=== PATIENT | female | born 1945 | race Caucasian/White ===

== ENCOUNTER → 2016-03-06 | Outpatient (CLI) | payer MEDICARE, OTHER ==
[~2016-03-06] MED LIST: CALC-80 PO; GFN600TCR PO; LVT.112T PO; LVT.1T PO; MULT-608 PO; VITIMIN C
--- NOTE | 2016-03-07 15:40 | Diagnostic Imaging Report ---
Bilateral screening mammogram. The current study was also evaluated with a Computer Aided Detection (CAD) system. INDICATION: Screening. No current complaints stated on the questionnaire. COMPARISON: 03/19/15. FINDINGS: The breasts are composed of heterogeneously dense parenchyma which may decrease mammographic sensitivity. There is no developing mass, architectural distortion or suspicious cluster of calcification. Stable benign-appearing calcification seen. Allowing for technique and positional differences, no suspicious change is seen. IMPRESSION: Dense breasts with no definite change. ACR BI-RADS Category 2: Benign findings. Result letter will be mailed to the patient. Note: At least 10% of breast cancer is not imaged by mammography. Dictated by: Dictated on workstation # [id number]
== END ==
LOC: RAD 14:44
PROVIDERS: ATTEND Internal Medicine
DX: Z12.31 Encounter for screening mammogram for malignant neoplasm of breast (principal)

== ENCOUNTER → 2017-03-05 | Outpatient (CLI) | payer MEDICARE, OTHER ==
--- NOTE | 2017-03-05 14:04 | Diagnostic Imaging Report ---
INDICATION: Screening. COMPARISON: 03/06/2016 back through 03/11/2013. TECHNIQUE: Screening digital mammography was performed bilaterally with a Computer Aided Detection (CAD) system. FINDINGS: There is a moderate amount of residual fibroglandular tissue bilaterally. There are scattered benign type calcifications. There are a few tiny nodular densities in the lateral aspect of the left breast which are unchanged. There is no new dominant mass lesion or suspicious calcification identified. The skin, nipples, and axillae are unremarkable. IMPRESSION: Benign findings. ACR BI-RADS Category 2: Benign findings. Result letter will be mailed to the patient. Note: At least 10% of breast cancer is not imaged by mammography. Dictated by: Dictated on workstation # [id number]
== END ==
LOC: RAD 10:08
PROVIDERS: ATTEND Internal Medicine
DX: Z12.31 Encounter for screening mammogram for malignant neoplasm of breast (principal)
CPT/HCPCS: 77067

== ENCOUNTER → 2017-04-24 | Outpatient (CLI) | payer MEDICARE, OTHER ==
--- NOTE | 2017-04-24 17:30 | Diagnostic Imaging Report ---
INDICATION: Back pain radiating to both legs. TIME OF EXAM: 04:03 p.m. FINDINGS: Three views of the lumbar spine were obtained. Alignment is normal. Curvature is within normal limits. Vertebral body heights are maintained. No acute compression fracture is seen. There appears to be mild degenerative disc disease at the L2-L3, L3-L4, and L4-L5 levels with mild disc space narrowing and marginal spurring. IMPRESSION: Lumbar spondylosis. No acute bony abnormality is detected. Dictated by: Dictated on workstation # [id number]
--- NOTE | 2017-04-24 18:05 | Diagnostic Imaging Report ---
INDICATION: Back pain and bilateral hip pain. TIME OF EXAM: 04:04 p.m. FINDINGS: A single AP view of the pelvis demonstrates normal femoroacetabular alignment bilaterally. Both femoral heads and necks are intact. Rami are intact. No fractures are seen. SI joints and symphyses are non-widened. IMPRESSION: No acute bony abnormality is detected. Dictated by: Dictated on workstation # [id number]
== END ==
LOC: RAD 15:31
PROVIDERS: ATTEND Internal Medicine
DX: M47.816 Spondylosis without myelopathy or radiculopathy, lumbar region (principal)
CPT/HCPCS: 72100; 72170

== ENCOUNTER 2017-12-21 05:35 | Outpatient (CLI) | payer MEDICARE, OTHER ==
[~2017-12-21] VITALS: Ht 157.5 cm; Wt 64.4 kg
[2017-12-21] MEDS ORDERED: LEVO112T55 PO (08:59)
== END 2017-12-21 09:00 | disposition home or self-care (01) ==
LOC: PREOP 05:35
PROVIDERS: ATTEND Specialist
DX: Z01.818 Encounter for other preprocedural examination (principal)

== ENCOUNTER 2017-12-25 05:57 | Day surgery (SDC) | payer MEDICARE, OTHER ==
[~2017-12-25] VITALS: Ht 157.5 cm; Wt 64.4 kg
[~2017-12-25 05:57] MED LIST changes: +LEVO112T55 PO
[2017-12-25] MEDS ORDERED: acetaZOLAMIDE ER 500 MG CAP (DIAMOX SEQUELS) PO ONE (06:00)
[2017-12-25 06:13] VITALS: BP 132/73
[2017-12-25] MEDS: TETRACAINE 0.5% OPHTH SOLN 4 ML BTL (SINGLE DOSE ONLY) OU PRN ×4 (06:22→06:41)
[2017-12-25] MEDS ORDERED: POVIDONE (BETADINE) OPHTH SOLN 5% 30 ML OP ONE (06:30)
[2017-12-25] MEDS ORDERED: EPINEPHrine INJECTION 1 MG/ML AMP INJ ONE (06:30)
[2017-12-25] MEDS ORDERED: TIMOLOL MALEATE 0.5% 5 ML (TIMOPTIC) BTL OU PRN (06:30)
[2017-12-25] MEDS ORDERED: BSS 15 ML IR PRN (06:30)
[2017-12-25] MEDS ORDERED: LIDOCAINE PF 1% 2 ML AMP IR PRN (06:30)
[2017-12-25] MEDS ORDERED: MOXIFLOXACIN OPHTH SOLN 5 MG/ML 0.3 ML SYRINGE OP ONE (06:30)
[2017-12-25] MEDS: CYCLOPENTOLATE 1% (CYCLOGYL) 2 ML DROPS OP SCH ×3 (06:31→06:41)
[2017-12-25] MEDS: PHENYLEPHRINE 10% OPHTH (NEO-SYN) 5 ML BTL OU SCH ×3 (06:31→06:41)
[2017-12-25] MEDS ORDERED: MIDAZOLAM 2 MG/2 ML (VERSED) VIAL ONE (06:46)
--- NOTE | 2017-12-25 07:24 | Ophthalmologist Pre-Op Note ---
Pre-Operative Progress Note H&P Reviewed The H&P was reviewed, patient examined and no changes noted. Date H&P Reviewed: Dec 25, 2017 Time H&P Reviewed: 07:01 Pre-Op Dx Cataract, Right Eye DAVID VELASQUEZ MD Dec 25, 2017 07:24
--- NOTE | 2017-12-25 07:25 | Ophthalmology Operative Report ---
Cataract removal/placement IOL PREOPERATIVE DIAGNOSIS: Cataract Right Eye POSTOPERATIVE DIAGNOSIS: Cataract Right Eye PROCEDURE: Cataract removal and placement of posterior chamber implant, right eye SURGEON: Kurt Velasquez ANESTHESIA: Topical with sedation COMPLICATIONS: None ESTIMATED BLOOD LOSS: Minimal DESCRIPTION OF PROCEDURE: After proper informed consent was obtained, the patient, a [id number] female, was taken to the Operating Room and the right eye was anesthetized with tetracaine. The right eye was then prepped and draped in the usual manner. A wire lid speculum was placed. A paracentesis was made at the left hand position. Preservative free lidocaine was injected into the anterior chamber followed by viscoelastic. A clear corneal incision was made in the temporal position. A capsulorrhexis was preformed and the central nuclear and cortical material were removed. The posterior capsule was polished and Michael 23.0 AU00T0 IOL was placed into the capsular bag. The residual viscoelastic was aspirated and balanced saline solution was injected into the anterior chamber. Moxifloxacin was injected into the anterior chamber. The wound was checked and found to be water tight. The patient tolerated the procedure well without complications. KURT VELASQUEZ MD Dec 25, 2017 07:25
[2017-12-25 07:26] VITALS: BP 138/78
== END 2017-12-25 07:32 | disposition home or self-care (01) ==
LOC: SDC 05:57
PROVIDERS: ATTEND Specialist
DX: H25.11 Age-related nuclear cataract, right eye (principal); F41.9 Anxiety disorder, unspecified; F40.240 Claustrophobia; E03.9 Hypothyroidism, unspecified; Z79.899 Other long term (current) drug therapy

== ENCOUNTER 2018-05-21 06:23 | Outpatient (CLI) | payer MEDICARE, OTHER ==
[~2018-05-21] VITALS: Ht 157.5 cm; Wt 64.4 kg
== END 2018-05-21 09:56 | disposition home or self-care (01) ==
LOC: PREOP 06:23
PROVIDERS: ATTEND Specialist
DX: Z01.818 Encounter for other preprocedural examination (principal)

== ENCOUNTER 2018-05-22 10:22 | Day surgery (SDC) | payer MEDICARE, OTHER ==
[~2018-05-22] VITALS: Ht 157.5 cm; Wt 64.4 kg
--- OUTSIDE RECORDS SUMMARY | 2018-05-22 10:26 | XMS REPORT | Clinical Summary ---
Author Author User, [email or web address] Organization [facility] [place] Address Unknown Phone Unavailable Allergies, Adverse Reactions, Alerts Allergy Name Reaction Description Start Date Severity Status Provider CODEINE Dermatological problems, e.g., rash, hives Critical Active Bernadette Davila BIAXIN XL PAC Insomnia and rash Critical No Longer Active Bernadette Davila Conditions or Problems Problem Name Problem Code Onset Date Status Entry Date Provider Comment Standard Description Annotate UPPER RESPIRATORY INFECTION (URI) 465.9 Resolved Bernadette Davila Acute upper respiratory infections of unspecified site History of CHOLECYSTECTOMY, HX OF V45.79 2000 Correction Bernadette Davila Other acquired absence of organ History of HYSTERECTOMY, PARTIAL, HX OF V45.77 1977 Correction Bernadette Davila Acquired absence of genital organs History of OOPHORECTOMY, HX OF V45.77 1987 Correction Bernadette Davila Acquired absence of genital organs History of ENDOMETRIOSIS 617.9 1970 Correction Bernadette Davila Endometriosis, site unspecified History of BLADDER SUSPENSION, HX OF V45.89 1997 Correction Bernadette Davila Other postsurgical status Family History of ADENOCARCINOMA, COLON Resolved Bernadette Davila Malignant neoplasm of colon, unspecified History of THYROID DISORDER 246.9 Correction Bernadette Davila Unspecified disorder of thyroid INCONTINENCE 788.30 1989 Resolved Bernadette Davila Urinary incontinence, unspecified Hospitalized for BACTERIAL PNEUMONIA, RIGHT LOWER LOBE 482.9 Correction Bernadette Davila Bacterial pneumonia, unspecified COUGH 786.2 Resolved Bernadette Davila Cough FATIGUE 780.79 Resolved Bernadette Davila Other malaise and fatigue PLEURISY 511.0 Resolved Bernadette Davila Pleurisy without mention of effusion or current tuberculosis HYPOTHYROIDISM 244.9 Resolved Bernadette Davila Unspecified hypothyroidism Dx by old records from Dr Duke. Will address next visit about Synthroid DIVERTICULOSIS, COLON 562.10 Resolved Bernadette Davila Diverticulosis of colon (without mention of hemorrhage) Dx by old records, will assess next visit. GASTROESOPHAGEAL REFLUX DISEASE, CHRONIC 530.81 Resolved Bernadette Davila Esophageal reflux per old chart NEVUS, ATYPICAL 216.9 Resolved Bernadette Davila Benign neoplasm of skin, site unspecified BRONCHITIS 490 Resolved Bernadette Davila Bronchitis, not specified as acute or chronic COUGH 786.2 Resolved Bernadette Davila Cough ALLERGIC RHINITIS, SEASONAL 477.9 Resolved Bernadette Davila Allergic rhinitis, cause unspecified UTI 599.0 Resolved Bernadette Davila Urinary tract infection, site not specified WART, VIRAL 078.19 Resolved Bernadette Davila Other specified viral warts right index finger NEVUS FLAMMEUS 757.32 Resolved Bernadette Davila Vascular hamartomas right neck MUSCLE PAIN 729.1 Resolved Bernadette Davila Myalgia and myositis, unspecified POLYARTHRALGIA 719.49 Resolved Bernadette Davila Pain in joint involving multiple sites OSTEOARTHRITIS, SACROILIAC JOINT 715.98 Resolved Bernadette Davila Osteoarthrosis, unspecified whether generalized or localized, involving other specified sites MUSCLE SPASM, BACK 724.8 Resolved Bernadette Davila Other symptoms referable to back HAY FEVER 995.3 Resolved Bernadette Davila Allergy, unspecified, not elsewhere classified BRONCHITIS 490 Resolved Bernadette Davila Bronchitis, not specified as acute or chronic COUGH 786.2 Resolved Bernadette Rissa Davila Cough URTICARIA, ACUTE 708.9 Resolved Bernadette Davila Unspecified urticaria WHEEZING 786.07 Resolved Bernadette Davila Wheezing COUGH 786.2 Resolved Bernadette Davila Cough THRUSH 112.0 Resolved Bernadette Davila Candidiasis of mouth MUSCLE PAIN 729.1 Resolved Bernadette Davila Myalgia and myositis, unspecified COUGH 786.2 Resolved Bernadette Rissa Davila Cough PNEUMONIA 486 Resolved Bernadette Davila Pneumonia, organism unspecified ASTHMA, CHRN OBST W/(ACUTE) EXACERBATION 493.22 Resolved Bernadette Davila Chronic obstructive asthma, with (acute) exacerbation HAY FEVER 477.0 Resolved Bernadette Davila Allergic rhinitis due to pollen BRONCHITIS 490 Resolved Bernadette Davila Bronchitis, not specified as acute or chronic ADULT SITUATIONAL REACTION 309.9 Resolved Bernadette Davila Unspecified adjustment reaction DIZZINESS 780.4 Resolved Bernadette Davila Dizziness and giddiness HYPERGLYCEMIA, MILD 790.6 Resolved Bernadette Davila Other abnormal blood chemistry SEBORRHEIC KERATOSIS 702.19 Resolved Bernadette Davila Other seborrheic keratosis OSTEOPENIA 733.90 Resolved Bernadette Davila Disorder of bone and cartilage, unspecified VITAMIN D DEFICIENCY 268.9 Active Bernadette Davila Unspecified vitamin D deficiency CHEST PAIN, ATYPICAL 786.59 Resolved Bernadette Davila Other chest pain HYPOTHYROIDISM, PRIMARY 244.9 Active Bernadette Davila Unspecified hypothyroidism HIP PAIN 719.45 Resolved Bernadette Davila Pain in joint involving pelvic region and thigh FEVER PRESENTING CONDITIONS CLASSIFIED ELSEWHERE 780.61 Resolved Bernadette Davila Fever presenting with conditions classified elsewhere DIARRHEA, ACUTE 787.91 Resolved Bernadette Davila Diarrhea HAY FEVER 477.0 Active Bernadette Davila Allergic rhinitis due to pollen ABNORMAL MAMMOGRAM 793.80 Resolved Bernadette Davila Abnormal mammogram, unspecified OVERACTIVE BLADDER 596.51 Active Bernadette Davila Hypertonicity of bladder BRONCHITIS 490 Resolved Bernadette Davila Bronchitis, not specified as acute or chronic WHEEZING 786.07 Resolved Bernadette Davila Wheezing HIP PAIN 719.45 Resolved Bernadette Davila Pain in joint involving pelvic region and thigh COUGH 786.2 Resolved Bernadette Davila Cough DEPRESSION 311 Active Bernadette Davila Depressive disorder, not elsewhere classified CANDIDIASIS, VAGINAL 112.1 Active Bernadette Davila Candidiasis of vulva and vagina VAGINITIS, ATROPHIC 627.3 Active Bernadette Davila Postmenopausal atrophic vaginitis Medication List Medication Instructions Start Date Stop Date Generic Name NDC Status Provider Patient Instruction NYSTATIN 592265 UNIT/GM POWD apply over the Nystatin cream BID NYSTATIN [id number] No Longer Active Bernadette Rissa Davila NYSTATIN 167105 UNIT/GM CREA apply to affected areas BID for 7 days NYSTATIN 98338640603 No Longer Active Bernadette Rissa Dvaila PREMARIN 0.625 MG/GM CREA Apply small amount to affected area daily. ESTROGENS, CONJUGATED VAGINAL 71057463659 Active Bernadette Rissa Davila VESICARE 5 MG TABS 1 PO daily SOLIFENACIN SUCCINATE 44943535950 No Longer Active Bernadette Rissa Davila SYMBICORT 160-4.5 MCG/ACT AERO 2 PUFFS BID BUDESONIDE -FORMOTEROL FUMARATE 17433908636 No Longer Active Bernadettegayatri Davila AEROCHAMBER MINI CHAMBER CHINMAY DIRECTED SPACER/AERO -HOLDING CHAMBERS 54090875233 No Longer Active Bernadettegayatri Davila TRIAMCINOLONE ACETONIDE 0.1 % CREA apply BID prn TRIAMCINOLONE ACETONIDE (TOP) 78849601500 No Longer Active Bernadettegayatri Davila MOBIC 15 MG TABS 1 PO daily MELOXICAM 67525720500 No Longer Active Bernadettegayatri Davila SYNTHROID 0.125 MG TAB 1 PO daily LEVOTHYROXINE SODIUM 74656673196 Active Bernadettegayatri Davila ZOSTAVAX 75382 UNT/0.65ML SOLR 1 injection once to prevent Shingles ZOSTER VACCINE LIVE 37284457084 No Longer Active Bernadettegayatri Davila PREDNISONE 20 MG TAB 1 PO daily for 4 days then 1/2 PO daily for 4 days 09/30 PREDNISONE 63919510759 No Longer Active Bernadette Rissa Davila LEVAQUIN 750 MG TABS 1 PO daily LEVOFLOXACIN 25649783614 No Longer Active Bernadette Rissa Davila ZOSTAVAX 29252 UNT/0.65ML SOLR 1 injection once to prevent Shingles ZOSTER VACCINE LIVE 91060877305 No Longer Active Bernadette Rissa Davila ZOSTAVAX 20313 UNT/0.65ML SOLR 1 injection once to prevent Shingles ZOSTER VACCINE LIVE 61114275289 No Longer Active Bernadette Rissa Davila NAPROXEN 500 MG TAB 1 PO BID NAPROXEN 84769198599 No Longer Active Bernadette Rissa Davila FLEXERIL 10 MG TAB 1 PO TID prn CYCLOBENZAPRINE HCL 88002884471 No Longer Active Bernadette Rissa Davila ENABLEX 15 MG NE64A-BMS 1 PO daily DARIFENACIN HYDROBROMIDE 10680438334 No Longer Active Bernadette Rissa Davila FLEXERIL 10 MG TAB 1 PO TID prn CYCLOBENZAPRINE HCL 98390859998 No Longer Active Bernadette Rissa Davila IBUPROFEN 200 MG TAB 2 PO BID IBUPROFEN 58488555241 No Longer Active Bernadette Rissa Davila JARETH ALLERGY 180 MG TABS 1 po BID FEXOFENADINE HCL 35261428999 No Longer Active Bernadette Rissa Davila SYNTHROID 0.1 MG TAB 1 PO on Sunday and Sunday LEVOTHYROXINE SODIUM 47512253369 No Longer Active Bernadette Rissa Davila IMODIUM A-D 2 MG TABS as directed LOPERAMIDE HCL 63297781359 No Longer Active Bernadette Rissa Davila TRANSDERM-SCOP 1.5 MG PT72 1 patch behind ear and change every 3 days SCOPOLAMINE BASE 58996239045 No Longer Active Bernadette Rissa Davila ZOSTAVAX 18382 UNT/0.65ML SOLR 1 injection once to prevent Shingles ZOSTER VACCINE LIVE 46311283390 No Longer Active Bernadette Rissa Davila PREDNISONE 20 MG TAB 2 pills at once for 2 days then 1 pill daily for 2 days PREDNISONE 93175410581 No Longer Active Bernadette Rissa Davila TUSSIONEX PENNKINETIC ER 8-10 MG/5ML LQCR 1 tsp PO TID prn cough CHLORPHENIRAMINE-HYDROCODONE 04191160061 No Longer Active Bernadette Rissa Davila ADVAIR DISKUS 100-50 MCG/DOSE MISC 1 puff BID FLUTICASONE-SALMETEROL 91891362030 No Longer Active Bernadette Rissa Davila LEVAQUIN 750 MG TABS 1 po daily for 7 days. LEVOFLOXACIN 68302581753 No Longer Active Bernadette Rissa Davila ZAMICET 10-325 MG/15ML SOLN 1 teaspoon PO Q4hrs prn HYDROCODONE-ACETAMINOPHEN 22226215615 No Longer Active Bernadetet Rissa Davila ZOLOFT 100 MG TABS 1 PO nightly at bedtime SERTRALINE HCL 44688542092 No Longer Active Bernadette Rissa Davila TESSALON 200 MG CAPS 1 PO TID prn cough BENZONATATE 35301872964 No Longer Active Bernadette Rissa Davila LEVAQUIN 500 MG TAB 1 PO QD LEVOFLOXACIN 16201737482 No Longer Active Bernadette Rissa Davila LOTRISONE 0.05-1 % CREAM apply to affectede areas TID for 7 days CLOTRIMAZOLE-BETAMETHASONE 33940779049 No Longer Active Bernadette Rissa Davila XANAX 0.25 MG TABS 1 PO Q6hrs prn ALPRAZOLAM 51684805434 No Longer Active Bernadette Rissa Davila ZOLOFT 50 MG TAB 1 PO daily SERTRALINE HCL 07042038736 No Longer Active Bernadette Rissa Davila CALTRATE 600 PLUS-VIT D 600-200 MG-IU TABS 1 PO BID CALCIUM- VITAMIN D 62659012630 Active Bernadette Rissa Davila VITAMIN D 400 UNIT CAPS 2 PO daily CHOLECALCIFEROL 92894818141 Active Bernadette Rissa Davila TESSALON 200 MG CAPS 1 PO TID prn cough BENZONATATE 97660414836 No Longer Active Bernadette Rissa Davila LEVAQUIN 500 MG TAB 1 PO QD for 7 days LEVOFLOXACIN 98910244896 No Longer Active Bernadette Rissa Davila ROBITUSSIN A-C 10-100 MG/5ML SYRUP 5cc PO Q 4-6 hr prn ROBITUSSIN A-C 10-100 MG/5ML SYRUP 34533096471 No Longer Active Bernadette Rissa Davila TESSALON 200 MG CAPS 1 PO TID prn for cough BENZONATATE 83815131488 No Longer Active Bernadette Rissa Davila CODICLEAR DH 5-100 MG/5ML SYRP 5 cc Po Q4-6prn HYDROCODONE-GUAIFENESIN 48656626482 No Longer Active Bernadette Rissa Davila MUCINEX 600 MG TB12 1 PO BID for 5 days GUAIFENESIN 07923421692 No Longer Active Bernadette Rissa Davila LEVAQUIN 500 MG TAB 1 PO daily for 7 days LEVOFLOXACIN 19596474981 No Longer Active Bernadette Rissa Davila PREDNISONE 20 MG TAB 2 PO daily for 2 days and then 1 PO daily for 2 days PREDNISONE 40564170704 No Longer Active Bernadette Rissa STEPHENS'S NASAL SPRAY (DEXAMETHASONE, GENTAMICIN, SALINE) 2 puffs each nostril TID for [address] STEPHENS'S NASAL SPRAY ( DEXAMETHASONE, GENTAMICIN, SALINE) No Longer Active Bernadettegayatri Davila AUGMENTIN 875-125 MG TAB 1 PO BID for 7 days AMOXICILLIN-POT CLAVULANATE 97725563345 No Longer Active Bernadettegayatri Davila DIFLUCAN 100 MG TAB 1 PO daily FLUCONAZOLE 92528939332 No Longer Active Bernadette Rissa Davila DILANTIN 100 MG CAP 1 PO daily for 5 days PHENYTOIN SODIUM EXTENDED 12701888253 No Longer Active Bernadettegayatri Davila NYSTATIN 289269 UNIT/ML SUSP 5cc PO QID for 7 days NYSTATIN 99053751879 No Longer Active Bernadettegayatri Davila SYNTHROID 100 MCG TABS 1 po daily alternating with 112 mcg. 03/28 LEVOTHYROXINE SODIUM 40826030822 No Longer Active Bernadettegayatri Davila PREDNISONE 20 MG TAB 3 PO QD for 3 days and 2 PO QD for 4 days PREDNISONE 93045332184 No Longer Active Bernadettegayatri Davila LEVAQUIN 500 MG TAB 1 PO QD LEVOFLOXACIN 32631344813 No Longer Active Bernadette Davila ADVAIR DISKUS 100-50 MCG/DOSE MISC 1 puff BID FLUTICASONE-SALMETEROL 69554907854 No Longer Active Bernadette Davila ROBITUSSIN A-C 10-100 MG/5ML SYRUP 5cc PO Q 4-6 hr prn ROBITUSSIN A-C 10-100 MG/5ML SYRUP 07708859213 No Longer Active Daryl Chu DEXAMETHASONE 2 MG TABS 1 PO BID DEXAMETHASONE 79572732933 No Longer Active Bernadette Davila TOPICORT 0.25 % CREA apply to affected areas BID DESOXIMETASONE 80962519186 No Longer Active Bernadette Rissa Davila ATARAX 25 MG TAB 1 PO Q6hrs, will cause drowsiness HYDROXYZINE HCL 50785243387 No Longer Active Bernadette Rissa Davila JARETH 180 MG TABS 1 PO BID FEXOFENADINE HCL 17791630846 No Longer Active Bernadette Rissa Davila SALICYLIC ACID BULL Apply QD and cover with bandaid SALICYLIC ACID 31250771577 No Longer Active Bernadette Rissa Davila DESOXIMETASONE 0.05 % GEL Apply bid prn DESOXIMETASONE 42418200462 No Longer Active Bernadette Rissa Davila METHYLPREDNISOLONE ACETATE 80 MG/ML SUSP 1 1/2 cc IM x 1 METHYLPREDNISOLONE ACETATE 61694837852 No Longer Active Bernadette Rissa Davila BENADRYL 25 MG TABS 2 PO QHS for 4 days DIPHENHYDRAMINE HCL 28488071631 No Longer Active Bernadette Rissa Davila PREDNISONE 20 MG TABS 2 PO QD for 4 days PREDNISONE 24484507353 No Longer Active Bernadette Rissa Davila BIAXIN XL PAC 500 MG TB24 2 PO QD for 7 days CLARITHROMYCIN 91635510411 No Longer Active Bernadette Rissa Davila ROBITUSSIN A-C 10-100 MG/5ML SYRUP 5cc PO Q 4-6 hr prn ROBITUSSIN A-C 10-100 MG/5ML SYRUP 34171063496 No Longer Active Bernadette Rissa Davila METHYLPREDNISOLONE ACETATE 80 MG/ML SUSP injected 1cc left gluteus w/o diff METHYLPREDNISOLONE ACETATE 26318057736 No Longer Active Bernadette Rissa Davila PREDNISONE 20 MG TAB 2 PO QD for 3 days PREDNISONE 76516827900 No Longer Active Bernadette Rissa Davila NAPROXEN 500 MG TAB 1 PO BID first dose now NAPROXEN 53560178141 No Longer Active Bernadette Rissa Davila FLEXERIL 10 MG TAB 1 PO QHS prn back pain CYCLOBENZAPRINE HCL 61907469245 No Longer Active Bernadette Rissa Davila PNEUMOVAX 23 25 MCG/0.5ML INJ Received at Hospital Discharge 01/2003 PNEUMOCOCCAL VAC POLYVALENT 86597104058 No Longer Active Bernadette Rissa Davila PYRIDIUM 200 MG TAB 1 TID for 2 days PHENAZOPYRIDINE HCL 07615004841 No Longer Active Bernadette Rissa Davila CIPRO XR 500 MG TB24 1 daily CIPROFLOX HCL-CIPRO BETAINE 48754582041 No Longer Active Bernadette Rissa Davila ZITHROMAX Z-WALE 250 MG TABS as directed AZITHROMYCIN 81301617562 No Longer Active Bernadette Rissa Davila ROBITUSSIN A-C 10-100 MG/5ML SYRUP 5cc PO Q 4-6 hr prn ROBITUSSIN A-C 10-100 MG/5ML SYRUP 45513473532 No Longer Active Bernadette Rissa Davila CODICLEAR DH 5-100 MG/5ML SYRP 5 cc q 4-6 hrs. prn cough HYDROCODONE-GUAIFENESIN 77642943488 No Longer Active Bernadette Rissa Davila CELEBREX 200 MG CAPS 1 po qd prn CELECOXIB 03441661635 No Longer Active Bernadette Rissa Davila ACIPHEX 20 MG TBEC per old chart RABEPRAZOLE SODIUM 09056157092 No Longer Active Bernadette Rissa Davila DITROPAN XL 5 MG TBCR per old chart OXYBUTYNIN CHLORIDE 56790029841 No Longer Active Bernadette Rissa Davila ZOLOFT 100 MG TAB per old chart SERTRALINE HCL 32825724695 No Longer Active Bernadette Davila PREMARIN 0.625 MG TAB per old chart ESTROGENS CONJUGATED 29264437976 No Longer Active Bernadette Rissa Davila SYNTHROID 0.175 MG TAB Per old records LEVOTHYROXINE SODIUM 38181359138 No Longer Active Bernadettegayatri Davila ZITHROMAX 500 MG TABS 1 pO Wednesday 02/07 then dc AZITHROMYCIN 01636829127 No Longer Active Bernadettegayatri Davila ROBITUSSIN A-C 10-100 MG/5ML SYRUP 5cc po q4 prn ROBITUSSIN A-C 10-100 MG/5ML SYRUP 68781652578 No Longer Active Bernadette Davila LEVAQUIN 500 MG TAB 1 PO QD LEVOFLOXACIN 79179782209 No Longer Active Bernadettegayatri Davila ZYRTEC-D 5-120 MG TB12 1 PO BID prn CETIRIZINE- PSEUDOEPHEDRINE 09353581433 No Longer Active Bernadette Davila Immunizations Vaccine Administration Date Value Standard Description pneumococcal immunization administered Done pneumococcal polysaccharide vaccine, 23 valent pneumococcal immunization administered 01/28 [facility] pneumococcal polysaccharide vaccine, 23 valent Vital Signs Date Name Value Unit Range Description blood pressure, diastolic - 8462-4 70 mm[Hg] BP [place] blood pressure, systolic - 8480-6 128 mm[Hg] BP sys pulse rate E&M - 8867-4 66 /min Heart rate respiratory rate E&M - 9279-1 14 /min Resp rate temperature E&M 98.6 [degF] Body temperature weight E&M - 3141-9 153 [lb_av] Weight Measured blood pressure, diastolic - 8462-4 60 mm[Hg] BP [place] blood pressure, systolic - 8480-6 130 mm[Hg] BP sys pulse rate E&M - 8867-4 66 /min Heart rate respiratory rate E&M - 9279-1 14 /min Resp rate weight E&M - 3141-9 150 [lb_av] Weight Measured blood pressure, diastolic - 8462-4 70 mm[Hg] BP [place] blood pressure, systolic - 8480-6 118 mm[Hg] BP sys pulse rate E&M - 8867-4 66 /min Heart rate respiratory rate E&M - 9279-1 14 /min Resp rate temperature E&M 98.1 [degF] Body temperature weight E&M - 3141-9 153 [lb_av] Weight Measured blood pressure, diastolic - 8462-4 90 mm[Hg] BP [place] blood pressure, systolic - 8480-6 126 mm[Hg] BP sys pulse rate E&M - 8867-4 68 /min Heart rate respiratory rate E&M - 9279-1 14 /min Resp rate temperature E&M 97.8 [degF] Body temperature weight E&M - 3141-9 155 [lb_av] Weight Measured blood pressure, diastolic - 8462-4 88 mm[Hg] BP [place] blood pressure, systolic - 8480-6 136 mm[Hg] BP sys pulse rate E&M - 8867-4 60 /min Heart rate respiratory rate E&M - 9279-1 12 /min Resp rate weight E&M - 3141-9 150 [lb_av] Weight Measured Diagnostic Results Date Name Value Unit Range Description Clinical Lists Update: CBC,CMP,FLP,TSH,Free T4 - Chemistry albumin, serum 4.1 g/dL Estimated Glomerular Filtration Rate (calc) 61 mL/min/1.73m2 urea nitrogen, blood 11 mg/dL calcium, serum 9.3 mg/dL chloride, serum 107 mmol/L cholesterol, serum 184 mg/dL carbon dioxide, venous blood 31.0 mmol/L creatinine, serum 1.0 mg/dL thyroxine, serum, free 0.72 ng/dL HDL cholesterol, serum 58.0 mg/dL thyroid stimulating hormone, serum 7.59 u[iU]/mL LDL cholesterol, serum 111 mg/dL potassium, serum 4.3 mmol/L protein, total, serum 6.6 g/dL aspartate aminotransferase (SGOT), serum 13 U/L alanine aminotransferase (SGPT), serum 11 U/L bilirubin, serum, total 0.4 mg/dL triglyceride, serum, fasting 77 mg/dL sodium, serum 144 mmol/L anion gap, serum 10 cholesterol/HDL ratio, serum, percent 3.2 glucose, plasma fasting 90 mg/dL alkaline phosphatase, serum 66 U/L Clinical Lists Update: CBC,CMP,FLP,TSH,Free T4 - Hematology hemoglobin, blood 14.4 g/dL hematocrit, blood 45 % platelet count 248 10*3/mm3 erythrocyte (RBC) count 5.03 10*6/mm3 leukocyte count, blood 5.1 10*3/mm3 mean corpuscular volume, RBC 90 fL red blood cell distribution width 15.1 % Clinical Lists Update: CMP,FLP,TSH,FREE T4 - Chemistry creatinine, serum 0.6 mg/dL albumin, serum 4.3 g/dL HDL cholesterol, serum 52.0 mg/dL thyroid stimulating hormone, serum 1.21 u[iU]/mL LDL cholesterol, serum 116 mg/dL potassium, serum 4.3 mmol/L protein, total, serum 6.7 g/dL aspartate aminotransferase (SGOT), serum 13 U/L alanine aminotransferase (SGPT), serum 13 U/L bilirubin, serum, total 0.5 mg/dL triglyceride, serum, fasting 91 mg/dL sodium, serum 140 mmol/L anion gap, serum 9 cholesterol/HDL ratio, serum, percent 3.4 glucose, plasma fasting 97 mg/dL Estimated Glomerular Filtration Rate (calc) 98 mL/min/1.73m2 carbon dioxide, venous blood 29.0 mmol/L cholesterol, serum 191 mg/dL chloride, serum 106 mmol/L calcium, serum 9.2 mg/dL urea nitrogen, blood 15 mg/dL alkaline phosphatase, serum 69 U/L thyroxine, serum, free 0.90 ng/dL Encounters Code Encounter Date Provider Facility CPT-14032 Ofc Vst, Est Level III 13:57:29 CDT Bernadette Rissa Davila [facility] CPT-39167 Ofc Vst, Est Level III 16:31:08 CDT Bernadette Rissa Davila [facility] CPT-18762 Ofc Vst, Est Level IV 19:54:43 CDT Berndaette Davila DO, FACP CPT-83719 Ofc Vst, Est Level III 17:10:28 [facility] Bernadette Davila DO, FACP CPT-42182 Ofc Vst, Est Level III 16:39:45 CDT Bernadette Davila DO, FACP CPT-76035 Ofc Vst, Est Level III 16:16:12 CDT Bernadette Davila DO, FACP CPT-43931 Ofc Vst, Est Level III 14:25:01 CDT Bernadettegayatri Peterson Davila, DO, FACP CPT-97765 Ofc Vst, Est Level III 12:59:29 CDT Bernadette Peterson Davila, DO, FACP CPT-19402 Ofc Vst, Est Level III 20:03:16 [facility] Bernadette Peterson Davila, DO, FACP CPT-20314 Ofc Vst, Est Level III 14:05:26 CDT Bernadette Rissa Peterson Davila, DO, FACP CPT-64794 Ofc Vst, Est Level IV 10:49:04 [facility] GR[facility] Bernadette Peterson Davila, DO, FACP CPT-00682 Ofc Vst, Est Level IV 14:27:22 CDT Bernadette Rissa Peterson Davila, DO, FACP CPT-48314 Ofc Vst, Est Level III 11:19:11 BIT GRINDER Bernadette Peterson Davila, DO, FACP CPT-06164 Ofc Vst, Est Level IV 11:56:57 [facility] Bernadette Peterson Davila, DO, FACP CPT-25130 Ofc Vst, Est Level III 10:45:11 CDT Bernadette Peterson Davila, DO, FACP CPT-25171 Ofc Vst, Est Level IV 10:22:52 CDT Bernadettegayatri Peterson Davila, DO, FACP CPT-67191 Ofc Vst, Est Level III 11:33:27 BIT GRINDER Bernadette Peterson Davila, DO, FACP CPT-14203 Ofc Vst, Est Level IV 11:57:50 CDT Bernadette Rissa Peterson Giovanni, DO, FACP CPT-04206 Ofc Vst, Est Level III 10:42:06 CDT Bernadette Rissa Haleyner Bernadette Peterson Giovanni, DO, FACP CPT-35868 Ofc Vst, Est Level IV 10:20:13 CDT Bernadette Rissa Haleyner Bernadette Peterson Giovanni, DO, FACP CPT-21792 Ofc Vst, Est Level IV 10:26:17 BIT GRINDER Bernadette Rissa Davila Bernadette Peterson Giovanni, DO, FACP CPT-15347 Ofc Vst, Est Level IV 09:43:59 CDT Bernadette Rissa Davila Bernadette Peterson Giovanni, DO, FACP CPT-91644 Ofc Vst, Est Level III 15:39:34 CDT Bernadette Rissa Haleyner Bernadette Peterson Giovanni, DO, FACP CPT-95022 Ofc Vst, Est Level III 16:48:24 CDT Bernadette Rissa Giovanni Bernadette Peterson Giovanni, DO, FACP CPT-18810 Ofc Vst, Est Level III 09:13:23 BIT GRINDER Bernadette Rissa Davila Bernadette Peterson Giovanni, DO, FACP CPT-13540 Ofc Vst, Est Level III 09:42:59 CDT Bernadette Rissa Haleyner Bernadette Peterson Giovanni, DO, FACP CPT-12869 Ofc Vst, Est Level IV 14:59:13 BIT GRINDER Bernadette Davila [facility] [place] CPT-38185 Ofc Vst, Est Level IV 10:53:36 CDT Bernadette Rissa Davila [facility] [place] CPT-13307 Ofc Vst, Est Level IV 09:39:44 CDT Bernadette Rissa Davila [facility] [place] CPT-56742 Ofc Vst, Est Level II 16:53:49 BIT GRINDER Bernadette Davila [facility] [place] CPT-78879 Ofc Vst, Est Level III 13:37:03 BIT GRINDER Bernadette Davila [facility] [place] CPT-18404 Ofc Vst, Est Level III 12:26:40 BIT GRINDER Bernadette Davila [facility] [place] CPT-36347 Ofc Vst, Est Level II 13:20:04 BIT GRINDER Bernadette Davila [facility] [place] CPT-14719 Ofc Vst, Est Level III 10:10:19 BIT GRINDER Bernadette Davila [facility] [place] CPT-81404 Ofc Vst, Est Level II 10:28:01 CDT Bernadette Rissa Davila [facility] [place] CPT-49844 Ofc Vst, Est Level III 16:52:13 CDT Bernadette Rissa Davila [facility] [place] CPT-04713 Ofc Vst, Est Level III 13:31:36 CDT Bernadette Davila [facility] [place] CPT-75740 Ofc Vst, Est Level III 09:30:23 BIT GRINDER Bernadette Davila [facility] [place] CPT-23598 Ofc Vst, Est Level III 15:34:19 BIT GRINDER Bernadette Davila [facility] [place] CPT-05770 Ofc Vst, Est Level II 11:53:32 BIT GRINDER Bernadette Davila [facility] [place] CPT-98158 Ofc Vst, New Level III 17:24:30 BIT GRINDER Bernadette Davila [facility] CPT-38159 Office/outpatient visit, new, mod complex 08:31:22 BIT GRINDER Bernadette Davila [facility] Procedures Code Procedure Name Date Entry Date Standard Description CPT-G0439 Medicare Annual Wellness Visit 17:12:14 CDT CPT-17755 Injection 16:16:12 CDT CPT-G8443 E-Prescribing Medication Sent 14:25:01 CDT CPT-G8443 E-Prescribing Medication Sent 13:14:56 CDT CPT-G0439 Medicare Annual Wellness Visit 13:14:56 CDT CPT-G8445 E-Prescribing Not sent due to no medication given 12:59: 29 CDT CPT-89591 Injection 12:59:29 CDT CPT-G8445 E-Prescribing Not sent due to no medication given 20:03: 16 BIT GRINDER CPT-70844 Injection 14:05:26 CDT CPT-20410 Injection 14:03:32 CDT CPT-G0438 Medicare Annual Wellness Visit Initial 14:03:32 CDT CPT-29521 Injection 11:46:51 CDT CPT-55457 Injection 10:45:11 CDT CPT-60391 Injection 10:22:52 CDT CPT-13746 Injection 11:57:50 CDT CPT-56345 Injection 10:42:06 CDT CPT-52484 Handling of specimen from office to lab 13:39:25 BIT GRINDER CPT-52027 Excision of Benign Lesion 1.1-2.0 cm 13:39:25 BIT GRINDER 03/06 CPT-58172 Injection 14:49:06 CDT CPT-99544 Other Injection (IM/SC) 10:28:01 CDT CPT-67980 Cryopathy Skin 10:01:14 CDT CPT-93399 Cryopathy Skin 18:07:58 CDT
--- OUTSIDE RECORDS SUMMARY | 2018-05-22 10:27 | XMS REPORT | Clinical Summary ---
Author Author User, SUNG Organization [facility] [place] Address Unknown Phone Unavailable Allergies, Adverse Reactions, [...] History of HYSTERECTOMY, PARTIAL, HX OF V45.77 1976 Correction Bernadette Davila Acquired absence of genital [...] acute or chronic COUGH 786.2 Resolved Bernadette Davlia Cough ALLERGIC RHINITIS, SEASONAL 477.9 Resolved Bernadette Davila Allergic rhinitis, cause unspecified UTI 599.0 Resolved Bernadette Davila Urinary tract infection, site not specified WART, VIRAL 078.19 Resolved Bernadette Davila Other specified viral warts right index finger NEVUS FLDEEPEUS 757.32 Resolved Bernadette Davila Vascular hamartomas right [...] chronic COUGH 786.2 Resolved Bernadette Davila Cough URTICARIA, ACUTE 708.9 Resolved Bernadette Davila Unspecified urticaria WHEEZING 786.07 Resolved Bernadette Davila Wheezing COUGH 786.2 Resolved Bernadette Davila Cough THRUSH 112.0 Resolved Bernadette Davila Candidiasis of mouth MUSCLE PAIN 729.1 Resolved Bernadette Davila Myalgia and myositis, unspecified COUGH 786.2 Resolved Bernadette Davila Cough PNEUMONIA 486 Resolved Bernadette Davila [...] Bernadette Davila Depressive disorder, not elsewhere classified Medication List Medication Instructions Start Date Stop Date Generic Name NDC Status Provider Patient Instruction VESICARE 5 MG TABS 1 PO daily SOLIFENACIN SUCCINATE [id number] No Longer Active Bernadette Davila SYMBICORT 160-4.5 MCG/ACT AERO 2 PUFFS BID BUDESONIDE -FORMOTEROL FUMARATE 96414516375 No Longer Active Bernadette Rissa Davila AEROCHAMBER MINI CHAMBER CHINMAY DIRECTED SPACER/AERO -HOLDING CHAMBERS 95503372314 No Longer Active Bernadettegayatri Davila TRIAMCINOLONE ACETONIDE 0.1 % CREA apply BID prn TRIAMCINOLONE ACETONIDE (TOP) 89480627848 No Longer Active Bernadette Rissa Davila MOBIC 15 MG TABS 1 PO daily MELOXICAM 49834817922 No Longer Active Bernadette Rissa Davila SYNTHROID 0.125 MG TAB 1 PO daily LEVOTHYROXINE SODIUM 35096639708 Active Bernadette Rissa Davila ZOSTAVAX 82679 UNT/0.65ML SOLR 1 injection once to prevent Shingles ZOSTER VACCINE LIVE 89864602177 No Longer Active Bernadettegayatri Davila PREDNISONE 20 MG TAB 1 PO daily for 4 days then 1/2 PO daily for 4 days 09/30 PREDNISONE 77774331522 No Longer Active Bernadettegayatri Davila LEVAQUIN 750 MG TABS 1 PO daily LEVOFLOXACIN 64494639923 No Longer Active Bernadettegayatri Davila ZOSTAVAX 54696 UNT/0.65ML SOLR 1 injection once to prevent Shingles ZOSTER VACCINE LIVE 58369409176 No Longer Active Bernadette Rissa Davila ZOSTAVAX 13510 UNT/0.65ML SOLR 1 injection once to prevent Shingles ZOSTER VACCINE LIVE 35460765545 No Longer Active Bernadettegayatri Davila NAPROXEN 500 MG TAB 1 PO BID NAPROXEN 80017079647 No Longer Active Bernadettegayatri Davila FLEXERIL 10 MG TAB 1 PO TID prn CYCLOBENZAPRINE HCL 17177778681 No Longer Active Bernadette Rissa Davila ENABLEX 15 MG [id number]-HQR 1 PO daily DARIFENACIN HYDROBROMIDE 23273022090 No Longer Active Bernadette Rissa Davila FLEXERIL 10 MG TAB 1 PO TID prn CYCLOBENZAPRINE HCL 26843950014 No Longer Active Bernadette Rissa Davila IBUPROFEN 200 MG TAB 2 PO BID IBUPROFEN 84277239082 No Longer Active Bernadette Rissa Davila JARETH ALLERGY 180 MG TABS 1 po BID FEXOFENADINE HCL 93863465193 No Longer Active Bernadette Rissa Davila SYNTHROID 0.1 MG TAB 1 PO on Sunday and Sunday LEVOTHYROXINE SODIUM 30785607157 No Longer Active Bernadette Rissa Davila IMODIUM A-D 2 MG TABS as directed LOPERAMIDE HCL 54673072696 No Longer Active Bernadette Rissa Davila TRANSDERM-SCOP 1.5 MG PT72 1 patch behind ear and change every 3 days SCOPOLAMINE BASE 23172229899 No Longer Active Bernadette Rissa Davila ZOSTAVAX 80759 UNT/0.65ML SOLR 1 injection once to prevent Shingles ZOSTER VACCINE LIVE 32548036473 No Longer Active Bernadette Rissa Davila PREDNISONE 20 MG TAB 2 pills at once for 2 days then 1 pill daily for 2 days PREDNISONE 33065294662 No Longer Active Bernadette Rissa Davila TUSSIONEX PENNKINETIC ER 8-10 MG/5ML LQCR 1 tsp PO TID prn cough CHLORPHENIRAMINE-HYDROCODONE 59657764191 No Longer Active Bernadette Rissa Davila ADVAIR DISKUS 100-50 MCG/DOSE MISC 1 puff BID FLUTICASONE-SALMETEROL 11960156076 No Longer Active Bernadette Rissa Davila LEVAQUIN 750 MG TABS 1 po daily for 7 days. LEVOFLOXACIN 25035350383 No Longer Active Bernadette Rissa Giovanni ZAMICET 10-325 MG/15ML SOLN 1 teaspoon PO Q4hrs prn HYDROCODONE-ACETAMINOPHEN 40704819542 No Longer Active Bernadette Rissa Giovanni ZOLOFT 100 MG TABS 1 PO nightly at bedtime SERTRALINE HCL 75596604631 No Longer Active Bernadette Rissa Giovanni TESSALON 200 MG CAPS 1 PO TID prn cough BENZONATATE 64948036543 No Longer Active Bernadette Rissa Giovanni LEVAQUIN 500 MG TAB 1 PO QD LEVOFLOXACIN 62960284273 No Longer Active Bernadette Rissadenilson Davila LOTRISONE 0.05-1 % CREAM apply to affectede areas TID for 7 days CLOTRIMAZOLE-BETAMETHASONE 75199505667 No Longer Active Bernadette Rissa Giovanni XANAX 0.25 MG TABS 1 PO Q6hrs prn ALPRAZOLAM 29492075001 No Longer Active Bernadette Rissa Giovanni ZOLOFT 50 MG TAB 1 PO daily SERTRALINE HCL 59656453316 No Longer Active Bernadette Rissadenilson Davila CALTRATE 600 PLUS-VIT D 600-200 MG-IU TABS 1 PO BID CALCIUM- VITAMIN D 26073684943 Active Bernadette Rissadenilson Davila VITAMIN D 400 UNIT CAPS 2 PO daily CHOLECALCIFEROL 60870459360 Active Bernadette Rissadenilson Davila TESSALON 200 MG CAPS 1 PO TID prn cough BENZONATATE 96022542300 No Longer Active Bernadette Rissa Davila LEVAQUIN 500 MG TAB 1 PO QD for 7 days LEVOFLOXACIN 14186675481 No Longer Active Bernadette Rissa Davila ROBITUSSIN A-C 10-100 MG/5ML SYRUP 5cc PO Q 4-6 hr prn ROBITUSSIN A-C 10-100 MG/5ML SYRUP 28069882446 No Longer Active Bernadette Rissa Davila TESSALON 200 MG CAPS 1 PO TID prn for cough BENZONATATE 35503267270 No Longer Active Bernadette Rissa Davila CODICLEAR DH 5-100 MG/5ML SYRP 5 cc Po Q4-6prn HYDROCODONE-GUAIFENESIN 88626479365 No Longer Active Bernadette Rissa Davila MUCINEX 600 MG TB12 1 PO BID for 5 days GUAIFENESIN 71669129108 No Longer Active Bernadette Rissa Davila LEVAQUIN 500 MG TAB 1 PO daily for 7 days LEVOFLOXACIN 85964485446 No Longer Active Bernadette Rissa Davila PREDNISONE 20 MG TAB 2 PO daily for 2 days and then 1 PO daily for 2 days PREDNISONE 71401739988 No Longer Active Bernadette Rissa STEPHENS'S NASAL SPRAY (DEXAMETHASONE, GENTAMICIN, SALINE) 2 puffs each nostril TID for [address] STEPHENS'Nicholas NASAL SPRAY ( DEXAMETHASONE, GENTAMICIN, SALINE) No Longer Active Bernadette Davila AUGMENTIN 875-125 MG TAB 1 PO BID for 7 days AMOXICILLIN-POT CLAVULANATE 37129273125 No Longer Active Bernadette Rissa Davila DIFLUCAN 100 MG TAB 1 PO daily FLUCONAZOLE 26676403264 No Longer Active Bernadette Rissa Davila DILANTIN 100 MG CAP 1 PO daily for 5 days PHENYTOIN SODIUM EXTENDED 46691136619 No Longer Active Bernadette Rissa Davila NYSTATIN 304146 UNIT/ML SUSP 5cc PO QID for 7 days NYSTATIN 45702715189 No Longer Active Bernadette Rissa Davila SYNTHROID 100 MCG TABS 1 po daily alternating with 112 mcg. 03/28 LEVOTHYROXINE SODIUM 72007582482 No Longer Active Bernadette Rissa Davila PREDNISONE 20 MG TAB 3 PO QD for 3 days and 2 PO QD for 4 days PREDNISONE 38929137394 No Longer Active Bernadette Rissa Davila LEVAQUIN 500 MG TAB 1 PO QD LEVOFLOXACIN 14217968848 No Longer Active Bernadette Rissa Davila ADVAIR DISKUS 100-50 MCG/DOSE MISC 1 puff BID FLUTICASONE-SALMETEROL 96156619353 No Longer Active Bernadette Rissa Davila ROBITUSSIN A-C 10-100 MG/5ML SYRUP 5cc PO Q 4-6 hr prn ROBITUSSIN A-C 10-100 MG/5ML SYRUP 92900031605 No Longer Active Daryl Chu DEXAMETHASONE 2 MG TABS 1 PO BID DEXAMETHASONE 12299545998 No Longer Active Bernadette Rissa Davila TOPICORT 0.25 % CREA apply to affected areas BID DESOXIMETASONE 64140705908 No Longer Active Bernadette Davila ATARAX 25 MG TAB 1 PO Q6hrs, will cause drowsiness HYDROXYZINE HCL 24479869459 No Longer Active Bernadette Rissa Davila JARETH 180 MG TABS 1 PO BID FEXOFENADINE HCL 45393950687 No Longer Active Bernadette Rissa Davila SALICYLIC ACID BULL Apply QD and cover with bandaid SALICYLIC ACID 77711312362 No Longer Active Bernadettegayatri Davila DESOXIMETASONE 0.05 % GEL Apply bid prn DESOXIMETASONE 25651024106 No Longer Active Bernadettegayatri Davila METHYLPREDNISOLONE ACETATE 80 MG/ML SUSP 1 1/2 cc IM x 1 METHYLPREDNISOLONE ACETATE 76958333509 No Longer Active Bernadette Rissa Davila BENADRYL 25 MG TABS 2 PO QHS for 4 days DIPHENHYDRAMINE HCL 11892761312 No Longer Active Bernadette Rissa Davila PREDNISONE 20 MG TABS 2 PO QD for 4 days PREDNISONE 72239700179 No Longer Active Bernadette Rissa Davila BIAXIN XL PAC 500 MG TB24 2 PO QD for 7 days CLARITHROMYCIN 74186430138 No Longer Active Bernadette Rissa Davila ROBITUSSIN A-C 10-100 MG/5ML SYRUP 5cc PO Q 4-6 hr prn ROBITUSSIN A-C 10-100 MG/5ML SYRUP 79487487925 No Longer Active Bernadette Rissa Davila METHYLPREDNISOLONE ACETATE 80 MG/ML SUSP injected 1cc left gluteus w/o diff METHYLPREDNISOLONE ACETATE 38500586066 No Longer Active Bernadette Rissa aDvila PREDNISONE 20 MG TAB 2 PO QD for 3 days PREDNISONE 75448425372 No Longer Active Bernadette Rissa Davila NAPROXEN 500 MG TAB 1 PO BID first dose now NAPROXEN 69683337598 No Longer Active Bernadette Rissa Davila FLEXERIL 10 MG TAB 1 PO QHS prn back pain CYCLOBENZAPRINE HCL 81792567464 No Longer Active Bernadette Rissa Davila PNEUMOVAX 23 25 MCG/0.5ML INJ Received at Hospital Discharge 01/2003 PNEUMOCOCCAL VAC POLYVALENT 08682294113 No Longer Active Bernadette Rissa Davila PYRIDIUM 200 MG TAB 1 TID for 2 days PHENAZOPYRIDINE HCL 02148802073 No Longer Active Bernadette Rissa Davila CIPRO XR 500 MG TB24 1 daily CIPROFLOX HCL-CIPRO BETAINE 32826036944 No Longer Active Bernadette Rissa Davila ZITHROMAX Z-WALE 250 MG TABS as directed AZITHROMYCIN 22049898331 No Longer Active Bernadette Rissa Davila ROBITUSSIN A-C 10-100 MG/5ML SYRUP 5cc PO Q 4-6 hr prn ROBITUSSIN A-C 10-100 MG/5ML SYRUP 87055280857 No Longer Active Bernadette Rissa Davila CODICLEAR DH 5-100 MG/5ML SYRP 5 cc q 4-6 hrs. prn cough HYDROCODONE-GUAIFENESIN 36415797723 No Longer Active Bernadette Rissa Davila CELEBREX 200 MG CAPS 1 po qd prn CELECOXIB 56025909902 No Longer Active Bernadette Rissa Davila ACIPHEX 20 MG TBEC per old chart RABEPRAZOLE SODIUM 13178351314 No Longer Active Bernadette Rissa Davila DITROPAN XL 5 MG TBCR per old chart OXYBUTYNIN CHLORIDE 46227810113 No Longer Active Bernadette Rissa Davila ZOLOFT 100 MG TAB per old chart SERTRALINE HCL 77542998077 No Longer Active Bernadette Rissa Davila PREMARIN 0.625 MG TAB per old chart ESTROGENS CONJUGATED 55166196429 No Longer Active Bernadette Rissa Davila SYNTHROID 0.175 MG TAB Per old records LEVOTHYROXINE SODIUM 16266842055 No Longer Active Bernadette Rissa Davila ZITHROMAX 500 MG TABS 1 pO Wednesday 02/07 then dc AZITHROMYCIN 28287877484 No Longer Active Bernadette Rissa Davila ROBITUSSIN A-C 10-100 MG/5ML SYRUP 5cc po q4 prn ROBITUSSIN A-C 10-100 MG/5ML SYRUP 00094629880 No Longer Active Bernadette Rissa Haleyner LEVAQUIN 500 MG TAB 1 PO QD LEVOFLOXACIN 77204111871 No Longer Active Bernadette Rissa Davila ZYRTEC-D 5-120 MG TB12 1 PO BID prn CETIRIZINE- PSEUDOEPHEDRINE 38220422562 No Longer Active Bernadettegayatri Winterse Giovanni Immunizations Vaccine Administration Date Value Standard Description [...] Weight Measured blood pressure, diastolic - 8462-4 86 mm[Hg] BP [place] blood pressure, systolic - 8480-6 142 mm[Hg] BP sys pulse rate E&M - 8867-4 60 /min Heart rate respiratory rate E&M - 9279-1 17 /min Resp rate temperature E&M 98.6 [degF] Body temperature weight E&M - 3141-9 150 [lb_av] Weight Measured blood pressure, diastolic - 8462-4 80 mm[Hg] BP [place] blood pressure, systolic - 8480-6 140 mm[Hg] BP sys pulse rate E&M - 8867-4 76 /min Heart rate respiratory rate E&M - 9279-1 14 /min Resp rate temperature E&M 98.6 [degF] Body temperature weight E&M - 3141-9 150 [lb_av] Weight Measured Diagnostic Results Date Name Value Unit Range Description Clinical Lists Update: CBC,CMP,FLP,TSH,Free T4 - Chemistry Estimated Glomerular Filtration Rate (calc) 61 mL/min/1.73m2 LDL cholesterol, serum 111 mg/dL glucose, plasma fasting 90 mg/dL alkaline phosphatase, serum 66 U/L cholesterol/HDL ratio, serum, percent 3.2 urea nitrogen, blood 11 mg/dL anion gap, serum 10 calcium, serum 9.3 mg/dL sodium, serum 144 mmol/L chloride, serum 107 mmol/L triglyceride, serum, fasting 77 mg/dL cholesterol, serum 184 mg/dL bilirubin, serum, total 0.4 mg/dL carbon dioxide, venous blood 31.0 mmol/L alanine aminotransferase (SGPT), serum 11 U/L creatinine, serum 1.0 mg/dL aspartate aminotransferase (SGOT), serum 13 U/L thyroxine, serum, free 0.72 ng/dL protein, total, serum 6.6 g/dL HDL cholesterol, serum 58.0 mg/dL potassium, serum 4.3 mmol/L thyroid stimulating hormone, serum 7.59 u[iU]/mL albumin, serum 4.1 g/dL Clinical Lists Update: CBC,CMP,FLP,TSH,Free T4 - Hematology hemoglobin, blood 14.4 g/dL hematocrit, blood 45 % platelet count 248 10*3/mm3 erythrocyte (RBC) count 5.03 10*6/mm3 leukocyte count, blood 5.1 10*3/mm3 mean corpuscular volume, RBC 90 fL red blood cell distribution width 15.1 % Clinical Lists Update: CMP,FLP,TSH,FREE T4 - Chemistry alanine aminotransferase (SGPT), serum 13 U/L LDL cholesterol, serum 116 mg/dL bilirubin, serum, total 0.5 mg/dL carbon dioxide, venous blood 29.0 mmol/L triglyceride, serum, fasting 91 mg/dL cholesterol, serum 191 mg/dL sodium, serum 140 mmol/L chloride, serum 106 mmol/L anion gap, serum 9 calcium, serum 9.2 mg/dL cholesterol/HDL ratio, serum, percent 3.4 urea nitrogen, blood 15 mg/dL glucose, plasma fasting 97 mg/dL alkaline phosphatase, serum 69 U/L Estimated Glomerular Filtration Rate (calc) 98 mL/min/1.73m2 albumin, serum 4.3 g/dL thyroxine, serum, free 0.90 ng/dL aspartate aminotransferase (SGOT), serum 13 U/L HDL cholesterol, serum 52.0 mg/dL protein, total, serum 6.7 g/dL thyroid stimulating hormone, serum 1.21 u[iU]/mL potassium, serum 4.3 mmol/L creatinine, serum 0.6 mg/dL Encounters Code Encounter Date Provider Facility CPT-09918 Ofc Vst, Est Level IV 19:54:43 CDT Bernadettegayatri Haleyner, DO, FACP CPT-61922 Ofc Vst, Est Level III 17:10:28 COMPUTER PROCESSING SCHEDULER Bernadette Davila, DO, FACP CPT-92343 Ofc Vst, Est Level III 16:39:45 CDT Bernadette Davila, DO, FACP CPT-98617 Ofc Vst, Est Level III 16:16:12 CDT Bernadettegayatri Davila, DO, FACP CPT-16486 Ofc Vst, Est Level III 14:25:01 CDT Bernadettegayatri Davila, DO, FACP CPT-37844 Ofc Vst, Est Level III 12:59:29 CDT Bernadette Davila, DO, FACP CPT-70703 Ofc Vst, Est Level III 20:03:16 COMPUTER PROCESSING SCHEDULER Bernadette Davila, DO, FACP CPT-76611 Ofc Vst, Est Level III 14:05:26 CDT Bernadette Davila, DO, FACP CPT-18129 Ofc Vst, Est Level IV 10:49:04 COMPUTER PROCESSING SCHEDULER Bernadette Davila, DO, FACP CPT-78229 Ofc Vst, Est Level IV 14:27:22 CDT Bernadette Rissa Davila Bernadette S Davila, DO, FACP CPT-27849 Ofc Vst, Est Level III 11:19:11 COMPUTER PROCESSING SCHEDULER Bernadette Peterson Davila, DO, FACP CPT-94512 Ofc Vst, Est Level IV 11:56:57 COMPUTER PROCESSING SCHEDULER Bernadette Rissa Peterson Davila, DO, FACP CPT-12144 Ofc Vst, Est Level III 10:45:11 CDT Bernadette Rissa Peterson Davila, DO, FACP CPT-32990 Ofc Vst, Est Level IV 10:22:52 CDT Bernadette Rissa Peterson Davila, DO, FACP CPT-05506 Ofc Vst, Est Level III 11:33:27 COMPUTER PROCESSING SCHEDULER Bernadette Rissa Peterson Giovanni, DO, FACP CPT-83220 Ofc Vst, Est Level IV 11:57:50 CDT Bernadette Rissa Peterson Giovanni, DO, FACP CPT-08861 Ofc Vst, Est Level III 10:42:06 CDT Bernadette Rissa Peterson Davila, DO, FACP CPT-53192 Ofc Vst, Est Level IV 10:20:13 CDT Bernadettegayatri Peterson Giovanni, DO, FACP CPT-70255 Ofc Vst, Est Level IV 10:26:17 COMPUTER PROCESSING SCHEDULER Bernadette Rissa Peterson Giovanni, DO, FACP CPT-17232 Ofc Vst, Est Level IV 09:43:59 CDT Bernadette Rissa Peterson Davila, DO, FACP CPT-39353 Ofc Vst, Est Level III 15:39:34 CDT Bernadette Rissa Fleming S Davila, DO, FACP CPT-24089 Ofc Vst, Est Level III 16:48:24 CDT Bernadette Rissa Peterson Giovanni, DO, FACP CPT-73888 Ofc Vst, Est Level III 09:13:23 COMPUTER PROCESSING SCHEDULER Bernadette Davila, DO, FACP CPT-81380 Ofc Vst, Est Level III 09:42:59 CDT Bernadette Davila, DO, FACP CPT-40752 Ofc Vst, Est Level IV 14:59:13 COMPUTER PROCESSING SCHEDULER Bernadette Davila [facility] CPT-18385 Ofc Vst, Est Level IV 10:53:36 CDT Bernadette Rissa Davila [facility] CPT-34545 Ofc Vst, Est Level IV 09:39:44 CDT Bernadette Rissa Davila [facility] [place] CPT-34164 Ofc Vst, Est Level II 16:53:49 COMPUTER PROCESSING SCHEDULER Bernadette Davila [facility] [place] CPT-56877 Ofc Vst, Est Level III 13:37:03 COMPUTER PROCESSING SCHEDULER Bernadette Davila [facility] [place] CPT-81362 Ofc Vst, Est Level III 12:26:40 COMPUTER PROCESSING SCHEDULER Bernadette Davila [facility] [place] CPT-31178 Ofc Vst, Est Level II 13:20:04 COMPUTER PROCESSING SCHEDULER Bernadette Davila [facility] CPT-06514 Ofc Vst, Est Level III 10:10:19 COMPUTER PROCESSING SCHEDULER Bernadette Davila [facility] CPT-72556 Ofc Vst, Est Level II 10:28:01 CDT Bernadette Rissa Davila [facility] CPT-25410 Ofc Vst, Est Level III 16:52:13 CDT Bernadette Davila [facility] [place] CPT-53950 Ofc Vst, Est Level III 13:31:36 CDT Bernadette Davila [facility] [place] CPT-41878 Ofc Vst, Est Level III 09:30:23 COMPUTER PROCESSING SCHEDULER Bernadette Davila [facility] CPT-71535 Ofc Vst, Est Level III 15:34:19 COMPUTER PROCESSING SCHEDULER Bernadette Davila [facility] [place] CPT-48971 Ofc Vst, Est Level II 11:53:32 COMPUTER PROCESSING SCHEDULER Bernadette Davila [facility] [place] CPT-85484 Ofc Vst, New Level III 17:24:30 COMPUTER PROCESSING SCHEDULER Bernadette Davila [facility] [place] CPT-15907 Office/outpatient visit, new, mod complex 08:31:22 COMPUTER PROCESSING SCHEDULER Bernadette Davila [facility] [place] Procedures Code Procedure Name Date Entry Date Standard Description CPT-G0439 Medicare Annual Wellness Visit 17:12:14 CDT CPT-27653 Injection 16:16:12 CDT CPT-G8443 E-Prescribing Medication Sent 14:25:01 CDT CPT-G8443 E-Prescribing Medication Sent 13:14:56 CDT CPT-G0439 Medicare Annual Wellness Visit 13:14:56 CDT CPT-G8445 E-Prescribing Not sent due to no medication given 12:59: 29 CDT CPT-08794 Injection 12:59:29 CDT CPT-G8445 E-Prescribing Not sent due to no medication given 20:03: 16 COMPUTER PROCESSING SCHEDULER CPT-42069 Injection 14:05:26 CDT CPT-52988 Injection 14:03:32 CDT CPT-G0438 Medicare Annual Wellness Visit Initial 14:03:32 CDT CPT-35025 Injection 11:46:51 CDT CPT-34673 Injection 10:45:11 CDT CPT-56098 Injection 10:22:52 CDT CPT-95963 Injection 11:57:50 CDT CPT-35264 Injection 10:42:06 CDT CPT-23247 Handling of specimen from office to lab 13:39:25 COMPUTER PROCESSING SCHEDULER CPT-84607 Excision of Benign Lesion 1.1-2.0 cm 13:39:25 COMPUTER PROCESSING SCHEDULER 03/06 CPT-82107 Injection 14:49:06 CDT CPT-74127 Other Injection (IM/SC) 10:28:01 CDT CPT-73143 Cryopathy Skin 10:01:14 CDT CPT-94877 Cryopathy Skin 18:07:58 CDT
--- OUTSIDE RECORDS SUMMARY | 2018-05-22 10:28 | XMS REPORT | Clinical Summary ---
Author Author User, [employer] Organization Formerly [facility] [place] Address Unknown Phone Unavailable Allergies, Adverse Reactions, [...] MG TABS 1 PO daily SOLIFENACIN SUCCINATE 00442451046 No Longer Active Bernadette Davila SYMBICORT 160-4.5 MCG/ACT AERO 2 PUFFS BID BUDESONIDE -FORMOTEROL FUMARATE 22154968834 No Longer Active Bernadette Rissa Davila AEROCHAMBER MINI CHAMBER CHINMAY DIRECTED SPACER/AERO -HOLDING CHAMBERS 35204107854 No Longer Active Bernadettegayatri Davila TRIAMCINOLONE ACETONIDE 0.1 % CREA apply BID prn TRIAMCINOLONE ACETONIDE (TOP) 96939165713 No Longer Active Bernadette Rissa Davila MOBIC 15 MG TABS 1 PO daily MELOXICAM 02795665469 No Longer Active Bernadette Rissa Davila SYNTHROID 0.125 MG TAB 1 PO daily LEVOTHYROXINE SODIUM 58085922510 Active Bernadette Rissa Davila ZOSTAVAX 05732 UNT/0.65ML SOLR 1 injection once to prevent Shingles ZOSTER VACCINE LIVE 99918199013 No Longer Active Bernadettegayatri Davila PREDNISONE 20 MG TAB 1 PO daily for 4 days then 1/2 PO daily for 4 days 09/30 PREDNISONE 13925883960 No Longer Active Bernadettegayatri Davila LEVAQUIN 750 MG TABS 1 PO daily LEVOFLOXACIN 88949486669 No Longer Active Bernadettegayatri Davila ZOSTAVAX 18956 UNT/0.65ML SOLR 1 injection once to prevent Shingles ZOSTER VACCINE LIVE 93528842923 No Longer Active Bernadette Rissa Davila ZOSTAVAX 52355 UNT/0.65ML SOLR 1 injection once to prevent Shingles ZOSTER VACCINE LIVE 05035792000 No Longer Active Bernadettegayatri Davila NAPROXEN 500 MG TAB 1 PO BID NAPROXEN 79356627911 No Longer Active Bernadettegayatri Davila FLEXERIL 10 MG TAB 1 PO TID prn CYCLOBENZAPRINE HCL 54625588805 No Longer Active Bernadette Rissa Davila ENABLEX 15 MG LR32B-DIL 1 PO daily DARIFENACIN HYDROBROMIDE 31287034737 No Longer Active Bernadette Rissa Davila FLEXERIL 10 MG TAB 1 PO TID prn CYCLOBENZAPRINE HCL 19981661796 No Longer Active Bernadette Rissa Davila IBUPROFEN 200 MG TAB 2 PO BID IBUPROFEN 67430790906 No Longer Active Bernadette Rissa Davila JARETH ALLERGY 180 MG TABS 1 po BID FEXOFENADINE HCL 79695918952 No Longer Active Bernadette Rissa Davila SYNTHROID 0.1 MG TAB 1 PO on Sunday and Sunday LEVOTHYROXINE SODIUM 79623918051 No Longer Active Bernadette Rissa Davila IMODIUM A-D 2 MG TABS as directed LOPERAMIDE HCL 18266675131 No Longer Active Bernadette Rissa Davila TRANSDERM-SCOP 1.5 MG PT72 1 patch behind ear and change every 3 days SCOPOLAMINE BASE 41124266704 No Longer Active Bernadette Rissa Davila ZOSTAVAX 70484 UNT/0.65ML SOLR 1 injection once to prevent Shingles ZOSTER VACCINE LIVE 08034054451 No Longer Active Bernadette Rissa Davila PREDNISONE 20 MG TAB 2 pills at once for 2 days then 1 pill daily for 2 days PREDNISONE 36859341746 No Longer Active Bernadette Rissa Davila TUSSIONEX PENNKINETIC ER 8-10 MG/5ML LQCR 1 tsp PO TID prn cough CHLORPHENIRAMINE-HYDROCODONE 48721487483 No Longer Active Bernadette Rissa Davila ADVAIR DISKUS 100-50 MCG/DOSE MISC 1 puff BID FLUTICASONE-SALMETEROL 65874584389 No Longer Active Bernadette Rissa Davila LEVAQUIN 750 MG TABS 1 po daily for 7 days. LEVOFLOXACIN 59960080332 No Longer Active Bernadette Rissa Giovanni ZAMICET 10-325 MG/15ML SOLN 1 teaspoon PO Q4hrs prn HYDROCODONE-ACETAMINOPHEN 37597388624 No Longer Active Bernadette Rissa Giovanni ZOLOFT 100 MG TABS 1 PO nightly at bedtime SERTRALINE HCL 94847131918 No Longer Active Bernadette Rissa Giovanni TESSALON 200 MG CAPS 1 PO TID prn cough BENZONATATE 27425143361 No Longer Active Bernadette Rissadenilson Davila LEVAQUIN 500 MG TAB 1 PO QD LEVOFLOXACIN 36331812009 No Longer Active Bernadette Rissa Davila LOTRISONE 0.05-1 % CREAM apply to affectede areas TID for 7 days CLOTRIMAZOLE-BETAMETHASONE 38361475651 No Longer Active Bernadette Rissa Giovanni XANAX 0.25 MG TABS 1 PO Q6hrs prn ALPRAZOLAM 23879520995 No Longer Active Bernadette Rissa Giovanni ZOLOFT 50 MG TAB 1 PO daily SERTRALINE HCL 13922658305 No Longer Active Bernadette Rissa Davila CALTRATE 600 PLUS-VIT D 600-200 MG-IU TABS 1 PO BID CALCIUM- VITAMIN D 80684184455 Active Bernadette Rissa Davila VITAMIN D 400 UNIT CAPS 2 PO daily CHOLECALCIFEROL 77855465221 Active Bernadette Rissa Davila TESSALON 200 MG CAPS 1 PO TID prn cough BENZONATATE 60186387455 No Longer Active Bernadette Rissa Davila LEVAQUIN 500 MG TAB 1 PO QD for 7 days LEVOFLOXACIN 56056608910 No Longer Active Bernadette Rissa Davila ROBITUSSIN A-C 10-100 MG/5ML SYRUP 5cc PO Q 4-6 hr prn ROBITUSSIN A-C 10-100 MG/5ML SYRUP 32011334563 No Longer Active Bernadette Rissa Davila TESSALON 200 MG CAPS 1 PO TID prn for cough BENZONATATE 12561750354 No Longer Active Bernadette Rissa Davila CODICLEAR DH 5-100 MG/5ML SYRP 5 cc Po Q4-6prn HYDROCODONE-GUAIFENESIN 88119554372 No Longer Active Bernadette Rissa Davila MUCINEX 600 MG TB12 1 PO BID for 5 days GUAIFENESIN 23239027389 No Longer Active Bernadette Rissa Davila LEVAQUIN 500 MG TAB 1 PO daily for 7 days LEVOFLOXACIN 21535105004 No Longer Active Bernadette Rissa Davila PREDNISONE 20 MG TAB 2 PO daily for 2 days and then 1 PO daily for 2 days PREDNISONE 65922599330 No Longer Active Bernadette Rissa STEPHENS'S NASAL SPRAY (DEXAMETHASONE, GENTAMICIN, SALINE) 2 puffs each nostril TID for [address] BEASLEY NASAL SPRAY ( DEXAMETHASONE, GENTAMICIN, SALINE) No Longer Active Bernadette Rissa Davila AUGMENTIN 875-125 MG TAB 1 PO BID for 7 days AMOXICILLIN-POT CLAVULANATE 53930468412 No Longer Active Bernadette Rissa Davila DIFLUCAN 100 MG TAB 1 PO daily FLUCONAZOLE 32424620869 No Longer Active Bernadette Rissa Davila DILANTIN 100 MG CAP 1 PO daily for 5 days PHENYTOIN SODIUM EXTENDED 63543892212 No Longer Active Bernadette Rissa Davila NYSTATIN 676685 UNIT/ML SUSP 5cc PO QID for 7 days NYSTATIN 68644592618 No Longer Active Bernadette Rissa Davila SYNTHROID 100 MCG TABS 1 po daily alternating with 112 mcg. 03/28 LEVOTHYROXINE SODIUM 68199308623 No Longer Active Bernadette Rissa Davila PREDNISONE 20 MG TAB 3 PO QD for 3 days and 2 PO QD for 4 days PREDNISONE 96798043053 No Longer Active Bernadette Rissa Davila LEVAQUIN 500 MG TAB 1 PO QD LEVOFLOXACIN 56222576765 No Longer Active Bernadette Rissa Davila ADVAIR DISKUS 100-50 MCG/DOSE MISC 1 puff BID FLUTICASONE-SALMETEROL 48869966918 No Longer Active Bernadette Rissa Davila ROBITUSSIN A-C 10-100 MG/5ML SYRUP 5cc PO Q 4-6 hr prn ROBITUSSIN A-C 10-100 MG/5ML SYRUP 00284105523 No Longer Active Daryl Chu DEXAMETHASONE 2 MG TABS 1 PO BID DEXAMETHASONE 10560307932 No Longer Active Bernadette Rissa Davila TOPICORT 0.25 % CREA apply to affected areas BID DESOXIMETASONE 67846417318 No Longer Active Bernadettegayatri Davila ATARAX 25 MG TAB 1 PO Q6hrs, will cause drowsiness HYDROXYZINE HCL 06949182927 No Longer Active Bernadette Rissa Davila JARETH 180 MG TABS 1 PO BID FEXOFENADINE HCL 72741304406 No Longer Active Bernadette Rissa Davila SALICYLIC ACID BULL Apply QD and cover with bandaid SALICYLIC ACID 07991548273 No Longer Active Bernadette Rissa Davila DESOXIMETASONE 0.05 % GEL Apply bid prn DESOXIMETASONE 56186925012 No Longer Active Bernadette Rissa Davila METHYLPREDNISOLONE ACETATE 80 MG/ML SUSP 1 1/2 cc IM x 1 METHYLPREDNISOLONE ACETATE 43973439797 No Longer Active Bernadette Rissa Davila BENADRYL 25 MG TABS 2 PO QHS for 4 days DIPHENHYDRAMINE HCL 03051356137 No Longer Active Bernadette Rissa Davila PREDNISONE 20 MG TABS 2 PO QD for 4 days PREDNISONE 87861710944 No Longer Active Bernadette Rissa Davila BIAXIN XL PAC 500 MG TB24 2 PO QD for 7 days CLARITHROMYCIN 54827370801 No Longer Active Bernadette Rissa Davila ROBITUSSIN A-C 10-100 MG/5ML SYRUP 5cc PO Q 4-6 hr prn ROBITUSSIN A-C 10-100 MG/5ML SYRUP 56752125240 No Longer Active Bernadette Rissa Davila METHYLPREDNISOLONE ACETATE 80 MG/ML SUSP injected 1cc left gluteus w/o diff METHYLPREDNISOLONE ACETATE 75844152440 No Longer Active Bernadette Rissa Davila PREDNISONE 20 MG TAB 2 PO QD for 3 days PREDNISONE 83293357817 No Longer Active Bernadette Rissa Davila NAPROXEN 500 MG TAB 1 PO BID first dose now NAPROXEN 05103208424 No Longer Active Bernadette Rissa Davila FLEXERIL 10 MG TAB 1 PO QHS prn back pain CYCLOBENZAPRINE HCL 72729229528 No Longer Active Bernadette Rissa Davila PNEUMOVAX 23 25 MCG/0.5ML INJ Received at Hospital Discharge 01/2003 PNEUMOCOCCAL VAC POLYVALENT 77220904538 No Longer Active Bernadette Rissa Davila PYRIDIUM 200 MG TAB 1 TID for 2 days PHENAZOPYRIDINE HCL 16171996538 No Longer Active Bernadette Rissa Davila CIPRO XR 500 MG TB24 1 daily CIPROFLOX HCL-CIPRO BETAINE 93809989841 No Longer Active Bernadette Rissa Davila ZITHROMAX Z-WALE 250 MG TABS as directed AZITHROMYCIN 11625608833 No Longer Active Bernadette Rissa Davila ROBITUSSIN A-C 10-100 MG/5ML SYRUP 5cc PO Q 4-6 hr prn ROBITUSSIN A-C 10-100 MG/5ML SYRUP 88923430315 No Longer Active Bernadette Rissa Davila CODICLEAR DH 5-100 MG/5ML SYRP 5 cc q 4-6 hrs. prn cough HYDROCODONE-GUAIFENESIN 40743529940 No Longer Active Bernadette Rissa Davila CELEBREX 200 MG CAPS 1 po qd prn CELECOXIB 51480519449 No Longer Active Bernadette Rissa Davila ACIPHEX 20 MG TBEC per old chart RABEPRAZOLE SODIUM 04953927560 No Longer Active Bernadette Rissa Davila DITROPAN XL 5 MG TBCR per old chart OXYBUTYNIN CHLORIDE 24692685729 No Longer Active Bernadette Rissa Davila ZOLOFT 100 MG TAB per old chart SERTRALINE HCL 83539535412 No Longer Active Bernadette Rissa Davila PREMARIN 0.625 MG TAB per old chart ESTROGENS CONJUGATED 03895322160 No Longer Active Bernadette Rissa Davila SYNTHROID 0.175 MG TAB Per old records LEVOTHYROXINE SODIUM 09425105960 No Longer Active Bernadette Rissa Davila ZITHROMAX 500 MG TABS 1 pO Wednesday 02/07 then dc AZITHROMYCIN 07220050316 No Longer Active Bernadette Rissa Davila ROBITUSSIN A-C 10-100 MG/5ML SYRUP 5cc po q4 prn ROBITUSSIN A-C 10-100 MG/5ML SYRUP 31372687070 No Longer Active Bernadette Rissa Giovanni LEVAQUIN 500 MG TAB 1 PO QD LEVOFLOXACIN 91640222017 No Longer Active Berandette Rissa Davila ZYRTEC-D 5-120 MG TB12 1 PO BID prn CETIRIZINE- PSEUDOEPHEDRINE 55286695540 No Longer Active Bernadettegayatri [place] Giovanni Immunizations [...] mg/dL Encounters Code Encounter Date Provider Facility CPT-43872 Ofc Vst, Est Level IV 19:54:43 CDT Bernadette Rissa Haleyner, DO, FACP CPT-15925 Ofc Vst, Est Level III 17:10:28 MACHINE LEARNING INTERN Bernadette Davila, DO, FACP CPT-17626 Ofc Vst, Est Level III 16:39:45 CDT Bernadette Davila, DO, FACP CPT-48867 Ofc Vst, Est Level III 16:16:12 CDT Bernadettegayatri Davila, DO, FACP CPT-64688 Ofc Vst, Est Level III 14:25:01 CDT Bernadettegayatri Davila, DO, FACP CPT-47359 Ofc Vst, Est Level III 12:59:29 CDT Bernadette Davila, DO, FACP CPT-13837 Ofc Vst, Est Level III 20:03:16 MACHINE LEARNING INTERN Bernadette Davila, DO, FACP CPT-61430 Ofc Vst, Est Level III 14:05:26 CDT Bernadette Davila, DO, FACP CPT-73438 Ofc Vst, Est Level IV 10:49:04 MACHINE LEARNING INTERN Bernadette Davila, DO, FACP CPT-95868 Ofc Vst, Est Level IV 14:27:22 CDT Bernadette Rissa Davila Bernadette S Davila, DO, FACP CPT-29906 Ofc Vst, Est Level III 11:19:11 MACHINE LEARNING INTERN Bernadette Peterson Davila, DO, FACP CPT-79732 Ofc Vst, Est Level IV 11:56:57 MACHINE LEARNING INTERN Bernadette Rissa Peterson Davila, DO, FACP CPT-62981 Ofc Vst, Est Level III 10:45:11 CDT Bernadette Rissa Peterson Giovanni, DO, FACP CPT-21527 Ofc Vst, Est Level IV 10:22:52 CDT Bernadette Rissa Peterson Giovanni, DO, FACP CPT-23644 Ofc Vst, Est Level III 11:33:27 MACHINE LEARNING INTERN Bernadette Rissa Peterson Giovanni, DO, FACP CPT-50188 Ofc Vst, Est Level IV 11:57:50 CDT Bernadettegayatri Peterson Giovanni, DO, FACP CPT-02774 Ofc Vst, Est Level III 10:42:06 CDT Bernadette Rissa Peterson Giovanni, DO, FACP CPT-95181 Ofc Vst, Est Level IV 10:20:13 CDT Bernadettegayatri Peterson Giovanni, DO, FACP CPT-96423 Ofc Vst, Est Level IV 10:26:17 MACHINE LEARNING INTERN Bernadette Peterson Giovanni, DO, FACP CPT-59997 Ofc Vst, Est Level IV 09:43:59 CDT Bernadette Rissa Peterson Giovanni, DO, FACP CPT-41589 Ofc Vst, Est Level III 15:39:34 CDT Bernadette Rissa Peterson Giovanni, DO, FACP CPT-88367 Ofc Vst, Est Level III 16:48:24 CDT Bernadette Rissa Peterson Giovanni, DO, FACP CPT-04464 Ofc Vst, Est Level III 09:13:23 MACHINE LEARNING INTERN Bernadette Davila, DO, FACP CPT-28457 Ofc Vst, Est Level III 09:42:59 CDT Bernadettegayatri Davila, DO, FACP CPT-33203 Ofc Vst, Est Level IV 14:59:13 MACHINE LEARNING INTERN Bernadette Davila [facility] [place] CPT-43789 Ofc Vst, Est Level IV 10:53:36 CDT Bernadette Rissa Davila [facility] [place] CPT-33708 Ofc Vst, Est Level IV 09:39:44 CDT Bernadette Rissa Davila [facility] [place] CPT-05870 Ofc Vst, Est Level II 16:53:49 MACHINE LEARNING INTERN Bernadette Davila [facility] [place] CPT-66103 Ofc Vst, Est Level III 13:37:03 MACHINE LEARNING INTERN Bernadette Davila [facility] [place] CPT-91510 Ofc Vst, Est Level III 12:26:40 MACHINE LEARNING INTERN Bernadette Davila [facility] [place] CPT-68338 Ofc Vst, Est Level II 13:20:04 MACHINE LEARNING INTERN Bernadette Davila [facility] [place] CPT-90996 Ofc Vst, Est Level III 10:10:19 MACHINE LEARNING INTERN Bernadette Davila [facility] [place] CPT-64311 Ofc Vst, Est Level II 10:28:01 CDT Bernadette Davila [facility] [place] CPT-64521 Ofc Vst, Est Level III 16:52:13 CDT Bernadette Davila [facility] [place] CPT-59676 Ofc Vst, Est Level III 13:31:36 CDT Bernadette Davila [facility] [place] CPT-88379 Ofc Vst, Est Level III 09:30:23 MACHINE LEARNING INTERN Bernadette Davila [facility] [place] CPT-37495 Ofc Vst, Est Level III 15:34:19 MACHINE LEARNING INTERN Bernadette Davila [facility] [place] CPT-09408 Ofc Vst, Est Level II 11:53:32 MACHINE LEARNING INTERN Bernadette Davila [facility] [place] CPT-43173 Ofc Vst, New Level III 17:24:30 MACHINE LEARNING INTERN Bernadette Davila [facility] [place] CPT-38835 Office/outpatient visit, new, mod complex 08:31:22 MACHINE LEARNING INTERN Bernadette Davila [facility] [place] Procedures Code Procedure Name Date Entry Date Standard Description CPT-G0439 Medicare Annual Wellness Visit 17:12:14 CDT CPT-41060 Injection 16:16:12 CDT CPT-G8443 E-Prescribing Medication Sent 14:25:01 CDT CPT-G8443 E-Prescribing Medication Sent 13:14:56 CDT CPT-G0439 Medicare Annual Wellness Visit 13:14:56 CDT CPT-G8445 E-Prescribing Not sent due to no medication given 12:59: 29 CDT CPT-42023 Injection 12:59:29 CDT CPT-G8445 E-Prescribing Not sent due to no medication given 20:03: 16 MACHINE LEARNING INTERN CPT-01473 Injection 14:05:26 CDT CPT-56834 Injection 14:03:32 CDT CPT-G0438 Medicare Annual Wellness Visit Initial 14:03:32 CDT CPT-57723 Injection 11:46:51 CDT CPT-95152 Injection 10:45:11 CDT CPT-40222 Injection 10:22:52 CDT CPT-72148 Injection 11:57:50 CDT CPT-23243 Injection 10:42:06 CDT CPT-12526 Handling of specimen from office to lab 13:39:25 MACHINE LEARNING INTERN CPT-58640 Excision of Benign Lesion 1.1-2.0 cm 13:39:25 MACHINE LEARNING INTERN 03/06 CPT-72767 Injection 14:49:06 CDT CPT-12658 Other Injection (IM/SC) 10:28:01 CDT CPT-47344 Cryopathy Skin 10:01:14 CDT CPT-95944 Cryopathy Skin 18:07:58 CDT
--- OUTSIDE RECORDS SUMMARY | 2018-05-22 10:30 | XMS REPORT | Clinical Summary ---
Author Author User, SUNG Organization [facility] [place] Address Unknown Phone Unavailable Allergies, Adverse Reactions, [...] Name NDC Status Provider Patient Instruction NYSTATIN [id number] UNIT/GM POWD apply over the Nystatin cream BID NYSTATIN [id number] Active Bernadette Rissa Davila NYSTATIN 733307 UNIT/GM CREA apply to affected areas BID for 7 days NYSTATIN [id number] Active Bernadette Rissa Davila PREMARIN 0.625 MG/GM CREA Apply small amount to affected area daily. ESTROGENS, CONJUGATED VAGINAL 79466856209 Active Bernadettegayatri Davila VESICARE 5 MG TABS 1 PO daily SOLIFENACIN SUCCINATE 64890173184 No Longer Active Bernadettegayatri Davila SYMBICORT 160-4.5 MCG/ACT AERO 2 PUFFS BID BUDESONIDE -FORMOTEROL FUMARATE 72334579062 No Longer Active Bernadettegayatri Davila AEROCHAMBER MINI CHAMBER CHINMAY DIRECTED SPACER/AERO -HOLDING CHAMBERS 05172031635 No Longer Active Bernadettegayatri Davila TRIAMCINOLONE ACETONIDE 0.1 % CREA apply BID prn TRIAMCINOLONE ACETONIDE (TOP) 95769761099 No Longer Active Bernadettegayatri Davila MOBIC 15 MG TABS 1 PO daily MELOXICAM 49722165321 No Longer Active Bernadettegayatri Davila SYNTHROID 0.125 MG TAB 1 PO daily LEVOTHYROXINE SODIUM 16536079072 Active Bernadettegayatri Davila ZOSTAVAX 32238 UNT/0.65ML SOLR 1 injection once to prevent Shingles ZOSTER VACCINE LIVE 57931361717 No Longer Active Bernadettegayatri Davila PREDNISONE 20 MG TAB 1 PO daily for 4 days then 1/2 PO daily for 4 days 09/30 PREDNISONE 88385637770 No Longer Active Bernadettegayatri Davila LEVAQUIN 750 MG TABS 1 PO daily LEVOFLOXACIN 81753572273 No Longer Active Bernadette Rissa Davila ZOSTAVAX 05209 UNT/0.65ML SOLR 1 injection once to prevent Shingles ZOSTER VACCINE LIVE 27051517530 No Longer Active Bernadette Rissa Giovanni ZOSTAVAX 88444 UNT/0.65ML SOLR 1 injection once to prevent Shingles ZOSTER VACCINE LIVE 97327360800 No Longer Active Bernadette Rissa Davila NAPROXEN 500 MG TAB 1 PO BID NAPROXEN 64219785425 No Longer Active Bernadette Rissa Davila FLEXERIL 10 MG TAB 1 PO TID prn CYCLOBENZAPRINE HCL 29765802840 No Longer Active Bernadette Rissa Davila ENABLEX 15 MG [id number] 1 PO daily DARIFENACIN HYDROBROMIDE 96146318612 No Longer Active Bernadette Rissa Davila FLEXERIL 10 MG TAB 1 PO TID prn CYCLOBENZAPRINE HCL 40803219771 No Longer Active Bernadette Rissa Davila IBUPROFEN 200 MG TAB 2 PO BID IBUPROFEN 86433365470 No Longer Active Bernadette Rissa Davila JARETH ALLERGY 180 MG TABS 1 po BID FEXOFENADINE HCL 00281394248 No Longer Active Bernadette Rissa Davila SYNTHROID 0.1 MG TAB 1 PO on Sunday and Sunday LEVOTHYROXINE SODIUM 29746604244 No Longer Active Bernadette Rissa Davila IMODIUM A-D 2 MG TABS as directed LOPERAMIDE HCL 26026710525 No Longer Active Bernadette Rissa Davila TRANSDERM-SCOP 1.5 MG PT72 1 patch behind ear and change every 3 days SCOPOLAMINE BASE 58471149528 No Longer Active Bernadette Rissa Davila ZOSTAVAX 61087 UNT/0.65ML SOLR 1 injection once to prevent Shingles ZOSTER VACCINE LIVE 60226967726 No Longer Active Bernadette Rissa Davila PREDNISONE 20 MG TAB 2 pills at once for 2 days then 1 pill daily for 2 days PREDNISONE 53041456177 No Longer Active Bernadette Rissa Davila TUSSIONEX PENNKINETIC ER 8-10 MG/5ML LQCR 1 tsp PO TID prn cough CHLORPHENIRAMINE-HYDROCODONE 61449767427 No Longer Active Bernadette Rissa Davila ADVAIR DISKUS 100-50 MCG/DOSE MISC 1 puff BID FLUTICASONE-SALMETEROL 43841567651 No Longer Active Bernadette Rissa Davila LEVAQUIN 750 MG TABS 1 po daily for 7 days. LEVOFLOXACIN 69446652574 No Longer Active Bernadette Rissa aDvila ZAMICET 10-325 MG/15ML SOLN 1 teaspoon PO Q4hrs prn HYDROCODONE-ACETAMINOPHEN 82784765764 No Longer Active Bernadette Rissa Davila ZOLOFT 100 MG TABS 1 PO nightly at bedtime SERTRALINE HCL 18579374522 No Longer Active Bernadette Rissa Davila TESSALON 200 MG CAPS 1 PO TID prn cough BENZONATATE 75383039673 No Longer Active Bernadette Rissa Davila LEVAQUIN 500 MG TAB 1 PO QD LEVOFLOXACIN 91536486586 No Longer Active Bernadette Rsisa Davila LOTRISONE 0.05-1 % CREAM apply to affectede areas TID for 7 days CLOTRIMAZOLE-BETAMETHASONE 27390822483 No Longer Active Bernadette Rissa Davila XANAX 0.25 MG TABS 1 PO Q6hrs prn ALPRAZOLAM 91834156666 No Longer Active Bernadette Rissa Davila ZOLOFT 50 MG TAB 1 PO daily SERTRALINE HCL 58328258326 No Longer Active Bernadette Rissa Davila CALTRATE 600 PLUS-VIT D 600-200 MG-IU TABS 1 PO BID CALCIUM- VITAMIN D 36888682263 Active Bernadette Rissa Davila VITAMIN D 400 UNIT CAPS 2 PO daily CHOLECALCIFEROL 69228341275 Active Bernadette Rissa Davila TESSALON 200 MG CAPS 1 PO TID prn cough BENZONATATE 58373738295 No Longer Active Bernadette Rissa Davila LEVAQUIN 500 MG TAB 1 PO QD for 7 days LEVOFLOXACIN 54896969417 No Longer Active Bernadette Rissa Davila ROBITUSSIN A-C 10-100 MG/5ML SYRUP 5cc PO Q 4-6 hr prn ROBITUSSIN A-C 10-100 MG/5ML SYRUP 60914429167 No Longer Active Bernadette Rissa Davila TESSALON 200 MG CAPS 1 PO TID prn for cough BENZONATATE 02701519706 No Longer Active Bernadette Rissa Davila CODICLEAR DH 5-100 MG/5ML SYRP 5 cc Po Q4-6prn HYDROCODONE-GUAIFENESIN 97370192138 No Longer Active Bernadette Rissa Davila MUCINEX 600 MG TB12 1 PO BID for 5 days GUAIFENESIN 63998514167 No Longer Active Bernadette Rissa Davila LEVAQUIN 500 MG TAB 1 PO daily for 7 days LEVOFLOXACIN 28777689069 No Longer Active Bernadette Rissa Davila PREDNISONE 20 MG TAB 2 PO daily for 2 days and then 1 PO daily for 2 days PREDNISONE 67430685265 No Longer Active Bernadette Rissa STEPHENS'S NASAL SPRAY (DEXAMETHASONE, GENTAMICIN, SALINE) 2 puffs each nostril TID for [address] STEPHENS'S NASAL SPRAY ( DEXAMETHASONE, GENTAMICIN, SALINE) No Longer Active Bernadette Davila AUGMENTIN 875-125 MG TAB 1 PO BID for 7 days AMOXICILLIN-POT CLAVULANATE 99174552997 No Longer Active Bernadettegayatri Davila DIFLUCAN 100 MG TAB 1 PO daily FLUCONAZOLE 71136467568 No Longer Active Bernadette Rissa Davila DILANTIN 100 MG CAP 1 PO daily for 5 days PHENYTOIN SODIUM EXTENDED 05640532664 No Longer Active Bernadettegayatri Davila NYSTATIN 636278 UNIT/ML SUSP 5cc PO QID for 7 days NYSTATIN 24520881768 No Longer Active Bernadette Davila SYNTHROID 100 MCG TABS 1 po daily alternating with 112 mcg. 03/28 LEVOTHYROXINE SODIUM 62641181846 No Longer Active Bernadette Davila PREDNISONE 20 MG TAB 3 PO QD for 3 days and 2 PO QD for 4 days PREDNISONE 16037745034 No Longer Active Brenadette Davila LEVAQUIN 500 MG TAB 1 PO QD LEVOFLOXACIN 01052672423 No Longer Active Bernadette Davila ADVAIR DISKUS 100-50 MCG/DOSE MISC 1 puff BID FLUTICASONE-SALMETEROL 16739936481 No Longer Active Bernadette Davila ROBITUSSIN A-C 10-100 MG/5ML SYRUP 5cc PO Q 4-6 hr prn ROBITUSSIN A-C 10-100 MG/5ML SYRUP 99713596919 No Longer Active Daryl Chu DEXAMETHASONE 2 MG TABS 1 PO BID DEXAMETHASONE 54624058746 No Longer Active Bernadette Davila TOPICORT 0.25 % CREA apply to affected areas BID DESOXIMETASONE 50247916997 No Longer Active Bernadette Davila ATARAX 25 MG TAB 1 PO Q6hrs, will cause drowsiness HYDROXYZINE HCL 07109209266 No Longer Active Bernadette Rissa Davila JARETH 180 MG TABS 1 PO BID FEXOFENADINE HCL 35470705466 No Longer Active Bernadette Rissa Davila SALICYLIC ACID BULL Apply QD and cover with bandaid SALICYLIC ACID 04636653112 No Longer Active Bernadette Rissa Davila DESOXIMETASONE 0.05 % GEL Apply bid prn DESOXIMETASONE 33815531554 No Longer Active Bernadette Rissa Davila METHYLPREDNISOLONE ACETATE 80 MG/ML SUSP 1 1/2 cc IM x 1 METHYLPREDNISOLONE ACETATE 30635926774 No Longer Active Bernadette Rissa Davila BENADRYL 25 MG TABS 2 PO QHS for 4 days DIPHENHYDRAMINE HCL 04897880560 No Longer Active Bernadette Rissa Davila PREDNISONE 20 MG TABS 2 PO QD for 4 days PREDNISONE 49501393744 No Longer Active Bernadette Rissa Davila BIAXIN XL PAC 500 MG TB24 2 PO QD for 7 days CLARITHROMYCIN 38737201613 No Longer Active Bernadette Rissa Davila ROBITUSSIN A-C 10-100 MG/5ML SYRUP 5cc PO Q 4-6 hr prn ROBITUSSIN A-C 10-100 MG/5ML SYRUP 89276067351 No Longer Active Bernadette Rissa Davila METHYLPREDNISOLONE ACETATE 80 MG/ML SUSP injected 1cc left gluteus w/o diff METHYLPREDNISOLONE ACETATE 39466971790 No Longer Active Bernadette Rissa Davila PREDNISONE 20 MG TAB 2 PO QD for 3 days PREDNISONE 81334802958 No Longer Active Bernadette Rissa Davila NAPROXEN 500 MG TAB 1 PO BID first dose now NAPROXEN 10381255608 No Longer Active Bernadette Rissa Davila FLEXERIL 10 MG TAB 1 PO QHS prn back pain CYCLOBENZAPRINE HCL 75872006042 No Longer Active Bernadette Rissa Davila PNEUMOVAX 23 25 MCG/0.5ML INJ Received at Hospital Discharge 01/2003 PNEUMOCOCCAL VAC POLYVALENT 48712532856 No Longer Active Bernadette Rissa Davila PYRIDIUM 200 MG TAB 1 TID for 2 days PHENAZOPYRIDINE HCL 11867975138 No Longer Active Bernadette Rissa Davila CIPRO XR 500 MG TB24 1 daily CIPROFLOX HCL-CIPRO BETAINE 75320837983 No Longer Active Bernadette Rissa Davila ZITHROMAX Z-WALE 250 MG TABS as directed AZITHROMYCIN 57245334509 No Longer Active Bernadette Rissa Davila ROBITUSSIN A-C 10-100 MG/5ML SYRUP 5cc PO Q 4-6 hr prn ROBITUSSIN A-C 10-100 MG/5ML SYRUP 64778809913 No Longer Active Bernadette Rissa Davila CODICLEAR DH 5-100 MG/5ML SYRP 5 cc q 4-6 hrs. prn cough HYDROCODONE-GUAIFENESIN 98721196663 No Longer Active Bernadette Rissa Davila CELEBREX 200 MG CAPS 1 po qd prn CELECOXIB 22779538271 No Longer Active Bernadette Rissa Davila ACIPHEX 20 MG TBEC per old chart RABEPRAZOLE SODIUM 60524144297 No Longer Active Bernadette Rissa Davila DITROPAN XL 5 MG TBCR per old chart OXYBUTYNIN CHLORIDE 80792533692 No Longer Active Bernadette Rissa Davila ZOLOFT 100 MG TAB per old chart SERTRALINE HCL 74905821649 No Longer Active Bernadette Rissa Giovanni PREMARIN 0.625 MG TAB per old chart ESTROGENS CONJUGATED 58136270144 No Longer Active Bernadette Rissa Giovanni SYNTHROID 0.175 MG TAB Per old records LEVOTHYROXINE SODIUM 95302045455 No Longer Active Bernadette Rissa Giovanni ZITHROMAX 500 MG TABS 1 pO Wednesday 02/07 then dc AZITHROMYCIN 27372215804 No Longer Active Bernadette Rissa Davila ROBITUSSIN A-C 10-100 MG/5ML SYRUP 5cc po q4 prn ROBITUSSIN A-C 10-100 MG/5ML SYRUP 07660890345 No Longer Active Bernadette Rissa Davila LEVAQUIN 500 MG TAB 1 PO QD LEVOFLOXACIN 22427146269 No Longer Active Bernadette Rissa Giovanni ZYRTEC-D 5-120 MG TB12 1 PO BID prn CETIRIZINE- PSEUDOEPHEDRINE 61765693985 No Longer Active Bernadette Davila Immunizations Vaccine Administration Date Value Standard Description pneumococcal immunization administered Done pneumococcal polysaccharide vaccine, 23 valent pneumococcal immunization administered 01/28 [facility] pneumococcal polysaccharide vaccine, 23 valent Vital Signs Date Name Value Unit Range Description blood pressure, diastolic - 8462-4 60 mm[Hg] [...] ng/dL Encounters Code Encounter Date Provider Facility CPT-63243 Ofc Vst, Est Level III 16:31:08 CDT Bernadette Davila [facility] CPT-66325 Ofc Vst, Est Level IV 19:54:43 CDT Bernadette Davila DO, FACP CPT-54620 Ofc Vst, Est Level III 17:10:28 INSURANCE [employer]JUST[employer] Bernadette Davila DO, FACP CPT-37548 Ofc Vst, Est Level III 16:39:45 CDT Bernadette Davila DO, FACP CPT-90063 Ofc Vst, Est Level III 16:16:12 CDT Bernadette Davila DO, FACP CPT-67320 Ofc Vst, Est Level III 14:25:01 CDT Bernadette Davila DO, FACP CPT-77185 Ofc Vst, Est Level III 12:59:29 CDT Bernadette Davila DO, FACP CPT-90515 Ofc Vst, Est Level III 20:03:16 INSURANCE ADJUSTOR Bernadette Davila DO, FACP CPT-26465 Ofc Vst, Est Level III 14:05:26 CDT Bernadette Davila DO, FACP CPT-39136 Ofc Vst, Est Level IV 10:49:04 INSURANCE ADJUSTOR Bernadette Peterson Davila, DO, FACP CPT-56082 Ofc Vst, Est Level IV 14:27:22 CDT Bernadette Peterson Davila, DO, FACP CPT-49888 Ofc Vst, Est Level III 11:19:11 INSURANCE ADJUSTOR Bernadette Peterson Davila, DO, FACP CPT-20126 Ofc Vst, Est Level IV 11:56:57 INSURANCE ADJUSTOR Bernadette Rissa Peterson Davila, DO, FACP CPT-01404 Ofc Vst, Est Level III 10:45:11 CDT Bernadette Peterson Davila, DO, FACP CPT-79947 Ofc Vst, Est Level IV 10:22:52 CDT Bernadette Rissa Peterson Davila, DO, FACP CPT-84188 Ofc Vst, Est Level III 11:33:27 INSURANCE ADJUSTOR Bernadette Peterson Davila, DO, FACP CPT-93213 Ofc Vst, Est Level IV 11:57:50 CDT Bernadette Peterson Davila, DO, FACP CPT-44974 Ofc Vst, Est Level III 10:42:06 CDT Bernadettegayatri Peterson Davila, DO, FACP CPT-61205 Ofc Vst, Est Level IV 10:20:13 CDT Bernadettegayatri Peterson Davila, DO, FACP CPT-46274 Ofc Vst, Est Level IV 10:26:17 INSURANCE ADJUSTOR Bernadette Peterson Davila, DO, FACP CPT-91822 Ofc Vst, Est Level IV 09:43:59 CDT Bernadette Rissa Peterson Davila, DO, FACP CPT-56662 Ofc Vst, Est Level III 15:39:34 CDT Bernadettegayatri Davila, DO, FACP CPT-87613 Ofc Vst, Est Level III 16:48:24 CDT Bernadette Rissa Davila, DO, FACP CPT-37927 Ofc Vst, Est Level III 09:13:23 INSURANCE ADJUSTOR Bernadette Davila, DO, FACP CPT-14052 Ofc Vst, Est Level III 09:42:59 CDT Bernadette Rissa Davila, DO, FACP CPT-17166 Ofc Vst, Est Level IV 14:59:13 INSURANCE ADJUSTOR Bernadette Davila [facility] [place] CPT-03812 Ofc Vst, Est Level IV 10:53:36 CDT Bernadette Davila [facility] [place] CPT-35909 Ofc Vst, Est Level IV 09:39:44 CDT Bernadette Rissa Davila [facility] [place] CPT-03507 Ofc Vst, Est Level II 16:53:49 INSURANCE ADJUSTOR Bernadette Davila [facility] [place] CPT-77493 Ofc Vst, Est Level III 13:37:03 INSURANCE ADJUSTOR Bernadette Davila [facility] [place] CPT-29038 Ofc Vst, Est Level III 12:26:40 INSURANCE ADJUSTOR Bernadette Davila [facility] [place] CPT-33026 Ofc Vst, Est Level II 13:20:04 INSURANCE ADJUSTOR Bernadette Davila [facility] [place] CPT-28309 Ofc Vst, Est Level III 10:10:19 INSURANCE ADJUSTOR Bernadette Davila [facility] [place] CPT-24414 Ofc Vst, Est Level II 10:28:01 CDT Bernadette Davila [facility] [place] CPT-11667 Ofc Vst, Est Level III 16:52:13 CDT Bernadette Davial [facility] [place] CPT-29644 Ofc Vst, Est Level III 13:31:36 CDT Bernadette Davila [facility] [place] CPT-90501 Ofc Vst, Est Level III 09:30:23 INSURANCE ADJUSTOR Bernadette Davila [facility] [place] CPT-25677 Ofc Vst, Est Level III 15:34:19 INSURANCE ADJUSTOR Bernadette Davila [facility] [place] CPT-26350 Ofc Vst, Est Level II 11:53:32 INSURANCE ADJUSTOR Bernadette Davila [facility] [place] CPT-62113 Ofc Vst, New Level III 17:24:30 INSURANCE ADJUSTOR Bernadette Davila [facility] [place] CPT-59843 Office/outpatient visit, new, mod complex 08:31:22 INSURANCE ADJUSTOR Bernadette Davila [facility] [place] Procedures Code Procedure Name Date Entry Date Standard Description CPT-G0439 Medicare Annual Wellness Visit 17:12:14 CDT CPT-98519 Injection 16:16:12 CDT CPT-G8443 E-Prescribing Medication Sent 14:25:01 CDT CPT-G8443 E-Prescribing Medication Sent 13:14:56 CDT CPT-G0439 Medicare Annual Wellness Visit 13:14:56 CDT CPT-G8445 E-Prescribing Not sent due to no medication given 12:59: 29 CDT CPT-17390 Injection 12:59:29 CDT CPT-G8445 E-Prescribing Not sent due to no medication given 20:03: 16 INSURANCE ADJUSTOR CPT-61997 Injection 14:05:26 CDT CPT-73946 Injection 14:03:32 CDT CPT-G0438 Medicare Annual Wellness Visit Initial 14:03:32 CDT CPT-66477 Injection 11:46:51 CDT CPT-73919 Injection 10:45:11 CDT CPT-59454 Injection 10:22:52 CDT CPT-80452 Injection 11:57:50 CDT CPT-69682 Injection 10:42:06 CDT CPT-98190 Handling of specimen from office to lab 13:39:25 INSURANCE ADJUSTOR CPT-89306 Excision of Benign Lesion 1.1-2.0 cm 13:39:25 INSURANCE ADJUSTOR 03/06 CPT-50273 Injection 14:49:06 CDT CPT-15352 Other Injection (IM/SC) 10:28:01 CDT CPT-23020 Cryopathy Skin 10:01:14 CDT CPT-67396 Cryopathy Skin 18:07:58 CDT
--- OUTSIDE RECORDS SUMMARY | 2018-05-22 10:31 | XMS REPORT | Clinical Summary ---
Author Author User, [facility] Organization [facility] [place] Address Unknown Phone Unavailable Allergies, Adverse Reactions, [...] Resolved Bernadette Davila Cough THRUSH 112.0 Resolved Brenadette Davila Candidiasis of mouth MUSCLE PAIN 729.1 [...] MG TABS 1 PO daily SOLIFENACIN SUCCINATE 74780739922 No Longer Active Bernadette Davila SYMBICORT 160-4.5 MCG/ACT AERO 2 PUFFS BID BUDESONIDE -FORMOTEROL FUMARATE 68246731480 No Longer Active Bernadette Rissa Davila AEROCHAMBER MINI CHAMBER CHINMAY DIRECTED SPACER/AERO -HOLDING CHAMBERS 62407488577 No Longer Active Bernadettegayatri Davila TRIAMCINOLONE ACETONIDE 0.1 % CREA apply BID prn TRIAMCINOLONE ACETONIDE (TOP) 11080594398 No Longer Active Bernadette Rissa Davila MOBIC 15 MG TABS 1 PO daily MELOXICAM 55764361766 No Longer Active Bernadette Rissa Davila SYNTHROID 0.125 MG TAB 1 PO daily LEVOTHYROXINE SODIUM 39785891518 Active Bernadette Rissa Davila ZOSTAVAX 64297 UNT/0.65ML SOLR 1 injection once to prevent Shingles ZOSTER VACCINE LIVE 11685088119 No Longer Active Bernadettegayatri Davila PREDNISONE 20 MG TAB 1 PO daily for 4 days then 1/2 PO daily for 4 days 09/30 PREDNISONE 62521232846 No Longer Active Bernadettegayatri Davila LEVAQUIN 750 MG TABS 1 PO daily LEVOFLOXACIN 52524886539 No Longer Active Bernadettegayatri Davila ZOSTAVAX 09192 UNT/0.65ML SOLR 1 injection once to prevent Shingles ZOSTER VACCINE LIVE 15411094589 No Longer Active Bernadette Rissa Davila ZOSTAVAX 28007 UNT/0.65ML SOLR 1 injection once to prevent Shingles ZOSTER VACCINE LIVE 51599399688 No Longer Active Bernadettegayatri Davila NAPROXEN 500 MG TAB 1 PO BID NAPROXEN 11232900059 No Longer Active Bernadettegayatri Davila FLEXERIL 10 MG TAB 1 PO TID prn CYCLOBENZAPRINE HCL 11685702952 No Longer Active Bernadette Rissa Davila ENABLEX 15 MG [id number] 1 PO daily DARIFENACIN HYDROBROMIDE 32332851603 No Longer Active Bernadette Rissa Davila FLEXERIL 10 MG TAB 1 PO TID prn CYCLOBENZAPRINE HCL 76865170852 No Longer Active Bernadette Rissa Davila IBUPROFEN 200 MG TAB 2 PO BID IBUPROFEN 98403578561 No Longer Active Bernadette Rissa Davila JARETH ALLERGY 180 MG TABS 1 po BID FEXOFENADINE HCL 95355449246 No Longer Active Bernadette Rissa Davila SYNTHROID 0.1 MG TAB 1 PO on Sunday and Sunday LEVOTHYROXINE SODIUM 36976479009 No Longer Active Bernadette Rissa Davila IMODIUM A-D 2 MG TABS as directed LOPERAMIDE HCL 32974708829 No Longer Active Bernadette Rissa Davila TRANSDERM-SCOP 1.5 MG PT72 1 patch behind ear and change every 3 days SCOPOLAMINE BASE 26632677196 No Longer Active Bernadette Rissa Davila ZOSTAVAX 87273 UNT/0.65ML SOLR 1 injection once to prevent Shingles ZOSTER VACCINE LIVE 02792751458 No Longer Active Bernadette Rissa Davila PREDNISONE 20 MG TAB 2 pills at once for 2 days then 1 pill daily for 2 days PREDNISONE 01768061053 No Longer Active Bernadette Rissa Davila TUSSIONEX PENNKINETIC ER 8-10 MG/5ML LQCR 1 tsp PO TID prn cough CHLORPHENIRAMINE-HYDROCODONE 41867097953 No Longer Active Bernadette Rissa Davila ADVAIR DISKUS 100-50 MCG/DOSE MISC 1 puff BID FLUTICASONE-SALMETEROL 59283682629 No Longer Active Bernadette Rissa Davila LEVAQUIN 750 MG TABS 1 po daily for 7 days. LEVOFLOXACIN 10198424973 No Longer Active Bernadette Rissa Giovanni ZAMICET 10-325 MG/15ML SOLN 1 teaspoon PO Q4hrs prn HYDROCODONE-ACETAMINOPHEN 34799360088 No Longer Active Bernadette Rissa Giovanni ZOLOFT 100 MG TABS 1 PO nightly at bedtime SERTRALINE HCL 37361456160 No Longer Active Bernadette Rissa Giovanni TESSALON 200 MG CAPS 1 PO TID prn cough BENZONATATE 92039262171 No Longer Active Bernadette Rissadenilson Davila LEVAQUIN 500 MG TAB 1 PO QD LEVOFLOXACIN 67044995084 No Longer Active Bernadette Rissa Davila LOTRISONE 0.05-1 % CREAM apply to affectede areas TID for 7 days CLOTRIMAZOLE-BETAMETHASONE 07225125783 No Longer Active Bernadette Rissa Giovanni XANAX 0.25 MG TABS 1 PO Q6hrs prn ALPRAZOLAM 63734004595 No Longer Active Bernadette Rissa Giovanni ZOLOFT 50 MG TAB 1 PO daily SERTRALINE HCL 55858622299 No Longer Active Bernadette Rissa Davila CALTRATE 600 PLUS-VIT D 600-200 MG-IU TABS 1 PO BID CALCIUM- VITAMIN D 62724677245 Active Bernadette Rissa Davila VITAMIN D 400 UNIT CAPS 2 PO daily CHOLECALCIFEROL 40160116788 Active Bernadette Rissa Davila TESSALON 200 MG CAPS 1 PO TID prn cough BENZONATATE 65289236653 No Longer Active Bernadette Rissa Davila LEVAQUIN 500 MG TAB 1 PO QD for 7 days LEVOFLOXACIN 28776838776 No Longer Active Bernadette Rissa Davila ROBITUSSIN A-C 10-100 MG/5ML SYRUP 5cc PO Q 4-6 hr prn ROBITUSSIN A-C 10-100 MG/5ML SYRUP 70573002530 No Longer Active Bernadette Rissa Davila TESSALON 200 MG CAPS 1 PO TID prn for cough BENZONATATE 66201616255 No Longer Active Bernadette Rissa Davila CODICLEAR DH 5-100 MG/5ML SYRP 5 cc Po Q4-6prn HYDROCODONE-GUAIFENESIN 72796319057 No Longer Active Bernadette Rissa Davila MUCINEX 600 MG TB12 1 PO BID for 5 days GUAIFENESIN 69517791864 No Longer Active Bernadetet Rissa Davila LEVAQUIN 500 MG TAB 1 PO daily for 7 days LEVOFLOXACIN 16454896396 No Longer Active Bernadette Rissa Davila PREDNISONE 20 MG TAB 2 PO daily for 2 days and then 1 PO daily for 2 days PREDNISONE 80259465788 No Longer Active Bernadette Rissa STEPHENS'S NASAL SPRAY (DEXAMETHASONE, GENTAMICIN, SALINE) 2 puffs each nostril TID for [address] BEASLEY NASAL SPRAY ( DEXAMETHASONE, GENTAMICIN, SALINE) No Longer Active Bernadette Rissa Davila AUGMENTIN 875-125 MG TAB 1 PO BID for 7 days AMOXICILLIN-POT CLAVULANATE 80606869568 No Longer Active Bernadette Rissa Davila DIFLUCAN 100 MG TAB 1 PO daily FLUCONAZOLE 39411242297 No Longer Active Bernadette Rissa Davila DILANTIN 100 MG CAP 1 PO daily for 5 days PHENYTOIN SODIUM EXTENDED 89880286204 No Longer Active Bernadette Rissa Davila NYSTATIN 670764 UNIT/ML SUSP 5cc PO QID for 7 days NYSTATIN 36108446622 No Longer Active Bernadette Rissa Davila SYNTHROID 100 MCG TABS 1 po daily alternating with 112 mcg. 03/28 LEVOTHYROXINE SODIUM 99443644061 No Longer Active Bernadette Rissa Davila PREDNISONE 20 MG TAB 3 PO QD for 3 days and 2 PO QD for 4 days PREDNISONE 42732057568 No Longer Active Bernadette Rissa Davila LEVAQUIN 500 MG TAB 1 PO QD LEVOFLOXACIN 48398286303 No Longer Active Bernadette Rissa Davila ADVAIR DISKUS 100-50 MCG/DOSE MISC 1 puff BID FLUTICASONE-SALMETEROL 14340617862 No Longer Active Bernadette Rissa Davila ROBITUSSIN A-C 10-100 MG/5ML SYRUP 5cc PO Q 4-6 hr prn ROBITUSSIN A-C 10-100 MG/5ML SYRUP 04537246414 No Longer Active Daryl Chu DEXAMETHASONE 2 MG TABS 1 PO BID DEXAMETHASONE 85775095815 No Longer Active Bernadette Rissa Davila TOPICORT 0.25 % CREA apply to affected areas BID DESOXIMETASONE 84277341294 No Longer Active Bernadettegayatri Davila ATARAX 25 MG TAB 1 PO Q6hrs, will cause drowsiness HYDROXYZINE HCL 04007026316 No Longer Active Bernadette Rissa Davila JARETH 180 MG TABS 1 PO BID FEXOFENADINE HCL 88755488654 No Longer Active Bernadette Rissa Davila SALICYLIC ACID BULL Apply QD and cover with bandaid SALICYLIC ACID 04426681596 No Longer Active Bernadette Rissa Davila DESOXIMETASONE 0.05 % GEL Apply bid prn DESOXIMETASONE 51490601869 No Longer Active Bernadette Rissa Davila METHYLPREDNISOLONE ACETATE 80 MG/ML SUSP 1 1/2 cc IM x 1 METHYLPREDNISOLONE ACETATE 93263562315 No Longer Active Bernadette Rissa Davila BENADRYL 25 MG TABS 2 PO QHS for 4 days DIPHENHYDRAMINE HCL 29515760944 No Longer Active Bernadette Rissa Davila PREDNISONE 20 MG TABS 2 PO QD for 4 days PREDNISONE 47748914132 No Longer Active Bernadette Rissa Davila BIAXIN XL PAC 500 MG TB24 2 PO QD for 7 days CLARITHROMYCIN 00807350676 No Longer Active Bernadette Rissa Davila ROBITUSSIN A-C 10-100 MG/5ML SYRUP 5cc PO Q 4-6 hr prn ROBITUSSIN A-C 10-100 MG/5ML SYRUP 65963792633 No Longer Active Bernadette Rissa Davila METHYLPREDNISOLONE ACETATE 80 MG/ML SUSP injected 1cc left gluteus w/o diff METHYLPREDNISOLONE ACETATE 73108135443 No Longer Active Bernadette Rissa Davila PREDNISONE 20 MG TAB 2 PO QD for 3 days PREDNISONE 65556121836 No Longer Active Bernadette Rissa Davila NAPROXEN 500 MG TAB 1 PO BID first dose now NAPROXEN 63685326499 No Longer Active Bernadette Rissa Davila FLEXERIL 10 MG TAB 1 PO QHS prn back pain CYCLOBENZAPRINE HCL 19522136028 No Longer Active Bernadette Rissa Davila PNEUMOVAX 23 25 MCG/0.5ML INJ Received at Hospital Discharge 01/2003 PNEUMOCOCCAL VAC POLYVALENT 55395967639 No Longer Active Bernadette Rissa Davila PYRIDIUM 200 MG TAB 1 TID for 2 days PHENAZOPYRIDINE HCL 49049103006 No Longer Active Bernadette Rissa Davila CIPRO XR 500 MG TB24 1 daily CIPROFLOX HCL-CIPRO BETAINE 25152227408 No Longer Active Bernadette Rissa Davila ZITHROMAX Z-WALE 250 MG TABS as directed AZITHROMYCIN 15607222878 No Longer Active Bernadette Rsisa Davila ROBITUSSIN A-C 10-100 MG/5ML SYRUP 5cc PO Q 4-6 hr prn ROBITUSSIN A-C 10-100 MG/5ML SYRUP 98697363988 No Longer Active Bernadette Rissa Davila CODICLEAR DH 5-100 MG/5ML SYRP 5 cc q 4-6 hrs. prn cough HYDROCODONE-GUAIFENESIN 49779654661 No Longer Active Bernadette iRssa Davila CELEBREX 200 MG CAPS 1 po qd prn CELECOXIB 50849971243 No Longer Active Bernadette Rissa Davila ACIPHEX 20 MG TBEC per old chart RABEPRAZOLE SODIUM 91837552724 No Longer Active Bernadette Rissa Davila DITROPAN XL 5 MG TBCR per old chart OXYBUTYNIN CHLORIDE 83225649185 No Longer Active Bernadette Rissa Davila ZOLOFT 100 MG TAB per old chart SERTRALINE HCL 96158441684 No Longer Active Bernadette Rissa Davila PREMARIN 0.625 MG TAB per old chart ESTROGENS CONJUGATED 41725836227 No Longer Active Bernadette Rissa Davila SYNTHROID 0.175 MG TAB Per old records LEVOTHYROXINE SODIUM 47923193923 No Longer Active Bernadette Rissa Davila ZITHROMAX 500 MG TABS 1 pO Wednesday 02/07 then dc AZITHROMYCIN 27913624572 No Longer Active Bernadette Rissa Davila ROBITUSSIN A-C 10-100 MG/5ML SYRUP 5cc po q4 prn ROBITUSSIN A-C 10-100 MG/5ML SYRUP 32418703563 No Longer Active Bernadette Rissa Giovanni LEVAQUIN 500 MG TAB 1 PO QD LEVOFLOXACIN 13553083728 No Longer Active Bernadette Rissa Davila ZYRTEC-D 5-120 MG TB12 1 PO BID prn CETIRIZINE- PSEUDOEPHEDRINE 50120521141 No Longer Active Bernadettegayatri Winterse Giovanni Immunizations [...] mg/dL Encounters Code Encounter Date Provider Facility CPT-03929 Ofc Vst, Est Level IV 19:54:43 CDT Bernadette Rissa Haleyner, DO, FACP CPT-87985 Ofc Vst, Est Level III 17:10:28 [employer]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 Bernadette Davila, DO, FACP CPT-84582 Ofc Vst, Est Level III 16:39:45 CDT Bernadette Davila, DO, FACP CPT-01451 Ofc Vst, Est Level III 16:16:12 CDT Bernadettegayatri Davila, DO, FACP CPT-75235 Ofc Vst, Est Level III 14:25:01 CDT Bernadettegayatri Davila, DO, FACP CPT-75193 Ofc Vst, Est Level III 12:59:29 CDT Bernadette Davila, DO, FACP CPT-99393 Ofc Vst, Est Level III 20:03:16 [employer]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 Bernadette Davila, DO, FACP CPT-33587 Ofc Vst, Est Level III 14:05:26 CDT Bernadette Davila, DO, FACP CPT-64626 Ofc Vst, Est Level IV 10:49:04 [employer]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 Bernadette Davila, DO, FACP CPT-72706 Ofc Vst, Est Level IV 14:27:22 CDT Bernadette Rissa Davila Bernadette S Davila, DO, FACP CPT-13023 Ofc Vst, Est Level III 11:19:11 [employer]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 Bernadette Peterson Davila, DO, FACP CPT-82303 Ofc Vst, Est Level IV 11:56:57 [employer]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 Bernadette Rissa Peterson Davila, DO, FACP CPT-87068 Ofc Vst, Est Level III 10:45:11 CDT Bernadette Rissa Peterson Giovanni, DO, FACP CPT-39848 Ofc Vst, Est Level IV 10:22:52 CDT Bernadette Rissa Peterson Giovanni, DO, FACP CPT-16461 Ofc Vst, Est Level III 11:33:27 [employer]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 Bernadette Rissa Peterson Giovanni, DO, FACP CPT-89952 Ofc Vst, Est Level IV 11:57:50 CDT Bernadettegayatri Peterson Giovanni, DO, FACP CPT-71124 Ofc Vst, Est Level III 10:42:06 CDT Bernadette Rissa Peterson Giovanni, DO, FACP CPT-39158 Ofc Vst, Est Level IV 10:20:13 CDT Bernadettegayatri Peterson Giovanni, DO, FACP CPT-39921 Ofc Vst, Est Level IV 10:26:17 [employer]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 Bernadette Peterson Giovanni, DO, FACP CPT-85440 Ofc Vst, Est Level IV 09:43:59 CDT Bernadette Rissa Peterson Giovanni, DO, FACP CPT-03868 Ofc Vst, Est Level III 15:39:34 CDT Bernadette Rissa Peterson Giovanni, DO, FACP CPT-83982 Ofc Vst, Est Level III 16:48:24 CDT Bernadette Rissa Peterson Giovanni, DO, FACP CPT-99508 Ofc Vst, Est Level III 09:13:23 [employer]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 Bernadette Davila, DO, FACP CPT-11445 Ofc Vst, Est Level III 09:42:59 CDT Bernadettegayatri Davila, DO, FACP CPT-64397 Ofc Vst, Est Level IV 14:59:13 TWINE REEL[employer]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 Bernadette Davila [facility] [place] CPT-50731 Ofc Vst, Est Level IV 10:53:36 CDT Bernadette Rissa Davila [facility] [place] CPT-45027 Ofc Vst, Est Level IV 09:39:44 CDT Bernadette Rissa Davila [facility] [place] CPT-37857 Ofc Vst, Est Level II 16:53:49 [employer]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 Bernadette Davila [facility] [place] CPT-64649 Ofc Vst, Est Level III 13:37:03 [employer]INE [employer]EL[employer]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 Bernadette Davila [facility] [place] CPT-20118 Ofc Vst, Est Level III 12:26:40 TWINE [employer]EL[employer]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 Bernadette Davila [facility] [place] CPT-83974 Ofc Vst, Est Level II 13:20:04 TWINE REEL[employer]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 Bernadette Davila [facility] [place] CPT-80867 Ofc Vst, Est Level III 10:10:19 TWINE REELING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 Bernadette Davila [facility] [place] CPT-55576 Ofc Vst, Est Level II 10:28:01 CDT Bernadette Davila [facility] [place] CPT-00839 Ofc Vst, Est Level III 16:52:13 CDT Bernadette Davila [facility] [place] CPT-89570 Ofc Vst, Est Level III 13:31:36 CDT Bernadette Davila [facility] [place] CPT-15479 Ofc Vst, Est Level III 09:30:23 TWINE REEL[employer]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 Bernadette Davila [facility] [place] CPT-17085 Ofc Vst, Est Level III 15:34:19 TWINE REELING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 Bernadette Davila [facility] [place] CPT-59051 Ofc Vst, Est Level II 11:53:32 TWINE REELING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 Bernadette Davila [facility] [place] CPT-00206 Ofc Vst, New Level III 17:24:30 TWINE REEL[employer]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 Bernadette Davila [facility] [place] CPT-58122 Office/outpatient visit, new, mod complex 08:31:22 [employer]INE RE[employer]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 Bernadette Davila [facility] [place] Procedures Code Procedure Name Date Entry Date Standard Description CPT-G0439 Medicare Annual Wellness Visit 17:12:14 CDT CPT-51170 Injection 16:16:12 CDT CPT-G8443 E-Prescribing Medication Sent 14:25:01 CDT CPT-G8443 E-Prescribing Medication Sent 13:14:56 CDT CPT-G0439 Medicare Annual Wellness Visit 13:14:56 CDT CPT-G8445 E-Prescribing Not sent due to no medication given 12:59: 29 CDT CPT-03886 Injection 12:59:29 CDT CPT-G8445 E-Prescribing Not sent due to no medication given 20:03: 16 [employer]INE REELING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 CPT-34679 Injection 14:05:26 CDT CPT-61452 Injection 14:03:32 CDT CPT-G0438 Medicare Annual Wellness Visit Initial 14:03:32 CDT CPT-28899 Injection 11:46:51 CDT CPT-15443 Injection 10:45:11 CDT CPT-65918 Injection 10:22:52 CDT CPT-90658 Injection 11:57:50 CDT CPT-96718 Injection 10:42:06 CDT CPT-72466 Handling of specimen from office to lab 13:39:25 [employer]INE REELING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 CPT-56674 Excision of Benign Lesion 1.1-2.0 cm 13:39:25 [employer]INE REELING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 03/06 CPT-94203 Injection 14:49:06 CDT CPT-41243 Other Injection (IM/SC) 10:28:01 CDT CPT-30506 Cryopathy Skin 10:01:14 CDT CPT-76779 Cryopathy Skin 18:07:58 CDT
--- OUTSIDE RECORDS SUMMARY | 2018-05-22 10:32 | XMS REPORT | Continuity of Care Document ---
Author Author [facility] Organization [facility] Address Unknown Phone Unavailable Allergies Active Description Code Type Severity Reaction Onset Reported/Identified Relationship to Patient Clinical Status Yes Tetanus Vaccines Toxoid [id number] Drug Allergy Unknown SWELLING 2011 Yes codeine [id number] Drug Allergy Unknown MAKES HER HYPER 12/21/2017 Yes Tetanus Vaccines and Toxoid [id number] Drug Allergy Unknown SWELLING Medications There is no data. Problems Date Dx Coded Attending Type Code Diagnosis Diagnosed By 03/14/2011 Ot 625.6 FEM STRESS INCONTINENCE 03/14/2011 Ot V03.82 PROPHYLACTIC VACC AGAINST STREPTOCOCCUS 03/14/2011 Ot V04.81 ND FOR PROPHYLACTIC VACCIN AND INOCULATI 01/14/2013 JAILENE BRYANT DO Ot 211.3 BENIGN NEOPLASM LG BOWEL 01/14/2013 JAILENE BRYANT DO Ot V16.0 FAMILY HX-GI MALIGNANCY 01/14/2013 JAILENE BRYANT DO Ot V76.51 SCREEN MAL NEOP-COLON 04/06/2014 JARRETT KWOK, TOMMIE Ot 793.80 04/20/2014 Ot V76.12 03/19/2015 Ot 625.6 03/19/2015 Ot V72.63 03/19/2015 Ot V74.8 03/19/2015 JAILENE BRYANT DO Ot V72.84 03/19/2015 JARRETT DO, TOMMIE Ot 793.82 03/19/2015 FARIAS DO, TOMMIE Ot V76.12 03/19/2015 FARIAS DO, TOMMIE Ot 793.89 03/19/2015 FARIAS DO, TOMMIE Ot 793.80 03/19/2015 FARIAS DO, TOMMIE Ot 793.80 04/14/2015 JARRETT DO, TOMMIE Ot R92.2 03/03/2016 Ot 625.6 FEM STRESS INCONTINENCE 03/03/2016 Ot V72.63 PRE- PROCEDURAL LABORATORY EXAMINATION 03/03/2016 Ot V74.8 SCREEN- BACTERIAL DIS NEC 03/03/2016 ANNETTE DOJAILENE D Ot V72.84 EXAM PRE-OPERATIVE NOS 03/03/2016 JARRETT KWOK TOMMEI Ot 793.82 INCONCLUSIVE MAMMOGRAM 03/03/2016 JARRETT KWOK TOMMIE Ot V76.12 OTH SCREEN MAMMO-MALIGN NEOPLASM OF YENI 03/03/2016 JARRETT KWOK TOMMIE Ot 793.89 OTH (ABN) FINDINGS ON RADIOLOGICAL EXAMI 03/03/2016 JARRETT KWOK TOMMIE Ot 793.80 UNSPEC ABNORMAL MAMMOGRAM 03/03/2016 JARRETT KWOK TOMMIE Ot 793.80 UNSPEC ABNORMAL MAMMOGRAM 03/03/2016 JARRETT KWOK TOMMIE Ot R92.2 INCONCLUSIVE MAMMOGRAM 03/07/2016 JARRETT KWOK TOMMIE Ot Z12.31 ENCNTR SCREEN MAMMOGRAM FOR MALIGNANT NE 03/07/2016 JARRETT KWOK TOMMIE Ot Z12.31 ENCNTR SCREEN MAMMOGRAM FOR MALIGNANT NE 03/29/2016 JARRETT KWOK TOMMIE Ot Z12.31 ENCNTR SCREEN MAMMOGRAM FOR MALIGNANT NE 03/27/2017 JARRETT KWOK TOMMIE Ot Z12.31 ENCNTR SCREEN MAMMOGRAM FOR MALIGNANT NE 04/24/2017 BRYANT DOJAILENE D Ot V72.84 EXAM PRE-OPERATIVE NOS 04/24/2017 JARRETT KWOK TOMMIE Ot 793.82 INCONCLUSIVE MAMMOGRAM 04/24/2017 JARRETT KWOK TOMMIE Ot V76.12 OTH SCREEN MAMMO-MALIGN NEOPLASM OF YENI 04/24/2017 JARRETT KWOK TOMMIE Ot 793.89 OTH (ABN) FINDINGS ON RADIOLOGICAL EXAMI 04/24/2017 JARERTT KWOK TOMMIE Ot 793.80 UNSPEC ABNORMAL MAMMOGRAM 04/24/2017 JARRETT KWOK TOMMIE Ot 793.80 UNSPEC ABNORMAL MAMMOGRAM 04/24/2017 JARRETT KWOK TOMMIE Ot R92.2 INCONCLUSIVE MAMMOGRAM 04/24/2017 JARRETT KWOK TOMMIE Ot Z12.31 ENCNTR SCREEN MAMMOGRAM FOR MALIGNANT NE 04/24/2017 JARRETT KWOK TOMMIE Ot Z12.31 ENCNTR SCREEN MAMMOGRAM FOR MALIGNANT NE 04/25/2017 JARRETT KWOK TOMMIE Ot M47.816 SPONDYLOSIS W/O MYELOPATHY OR RADICULOPA 05/17/2017 FARIAS DO, TOMMIE Ot M47.816 SPONDYLOSIS W/O MYELOPATHY OR RADICULOPA 10/31/2017 BRYANT DO, JAILENE D Ot V72.84 EXAM PRE-OPERATIVE NOS 10/31/2017 FARIAS DO, TOMMIE Ot 793.82 INCONCLUSIVE MAMMOGRAM 10/31/2017 FARIAS DO, TOMMIE Ot V76.12 OTH SCREEN MAMMO-MALIGN NEOPLASM OF YENI 10/31/2017 FARIAS DO, TOMMIE Ot 793.89 OTH (ABN) FINDINGS ON RADIOLOGICAL EXAMI 10/31/2017 FARIAS DO, TOMMIE Ot 793.80 UNSPEC ABNORMAL MAMMOGRAM 10/31/2017 FARIAS DO, TOMMIE Ot 793.80 UNSPEC ABNORMAL MAMMOGRAM 10/31/2017 FARIAS DO, TOMMIE Ot R92.2 INCONCLUSIVE MAMMOGRAM 10/31/2017 FARIAS DO, TOMMIE Ot Z12.31 ENCNTR SCREEN MAMMOGRAM FOR MALIGNANT NE 10/31/2017 FARIAS DO, TOMMIE Ot Z12.31 ENCNTR SCREEN MAMMOGRAM FOR MALIGNANT NE 10/31/2017 FARIAS DO, TOMMIE Ot M47.816 SPONDYLOSIS W/O MYELOPATHY OR RADICULOPA 10/31/2017 [place] DO, JAILENE D Ot V72.84 EXAM PRE-OPERATIVE NOS 10/31/2017 FARIAS DO, TOMMIE Ot 793.82 INCONCLUSIVE MAMMOGRAM 10/31/2017 FARIAS DO, TOMMIE Ot V76.12 OTH SCREEN MAMMO-MALIGN NEOPLASM OF YENI 10/31/2017 FARIAS DO, TOMMIE Ot 793.89 OTH (ABN) FINDINGS ON RADIOLOGICAL EXAMI 10/31/2017 FARIAS DO, TOMMIE Ot 793.80 UNSPEC ABNORMAL MAMMOGRAM 10/31/2017 FARIAS DO, TOMMIE Ot 793.80 UNSPEC ABNORMAL MAMMOGRAM 10/31/2017 FARIAS DO, TOMMIE Ot R92.2 INCONCLUSIVE MAMMOGRAM 10/31/2017 FARIAS DO, TOMMIE Ot Z12.31 ENCNTR SCREEN MAMMOGRAM FOR MALIGNANT NE 10/31/2017 FARIAS DO, TOMMIE Ot Z12.31 ENCNTR SCREEN MAMMOGRAM FOR MALIGNANT NE 10/31/2017 FARIAS DO, TOMMIE Ot M47.816 SPONDYLOSIS W/O MYELOPATHY OR RADICULOPA 12/21/2017 EVA SANFORD, DAVID Segundo Ot Z01.818 ENCOUNTER FOR OTHER PREPROCEDURAL EXAMIN 12/24/2017 DAVID VELASQUEZ MD Ot Z01.818 ENCOUNTER FOR OTHER PREPROCEDURAL EXAMIN 12/25/2017 JAILENE BRYANT DO Ot V72.84 EXAM PRE-OPERATIVE NOS 12/25/2017 JARRETT KWOK TOMMIE Ot 793.82 INCONCLUSIVE MAMMOGRAM 12/25/2017 JARRETT KWOK TOMMIE Ot V76.12 OTH SCREEN MAMMO-MALIGN NEOPLASM OF YENI 12/25/2017 JARRETT KWOK TOMMIE Ot 793.89 OTH (ABN) FINDINGS ON RADIOLOGICAL EXAMI 12/25/2017 JARRETT KWOK TOMMIE Ot 793.80 UNSPEC ABNORMAL MAMMOGRAM 12/25/2017 JARRETT KWOK TOMMIE Ot 793.80 UNSPEC ABNORMAL MAMMOGRAM 12/25/2017 JARRETT KWOK TOMMIE Ot R92.2 INCONCLUSIVE MAMMOGRAM 12/25/2017 JARRETT KWOK TOMMIE Ot Z12.31 ENCNTR SCREEN MAMMOGRAM FOR MALIGNANT NE 12/25/2017 JARRETT KWOK TOMMIE Ot Z12.31 ENCNTR SCREEN MAMMOGRAM FOR MALIGNANT NE 12/25/2017 JARRETT KWOK TOMMIE Ot M47.816 SPONDYLOSIS W/O MYELOPATHY OR RADICULOPA 12/25/2017 DAVID VELASQUEZ MD Ot E03.9 HYPOTHYROIDISM, UNSPECIFIED 12/25/2017 DAVID VELASQUEZ MD Ot F40.240 CLAUSTROPHOBIA 12/25/2017 DAVID VELASQUEZ MD Ot F41.9 ANXIETY DISORDER, UNSPECIFIED 12/25/2017 DAVID VELASQUEZ MD Ot H25.11 AGE-RELATED NUCLEAR CATARACT, RIGHT EYE 12/25/2017 DAVID VELASQUEZ MD Ot Z79.899 OTHER PENITENTIARY (CURRENT) DRUG THERAPY 12/26/2017 DAVID VELASQUEZ MD Ot E03.9 HYPOTHYROIDISM, UNSPECIFIED 12/26/2017 DAVID VELASQUEZ MD Ot F40.240 CLAUSTROPHOBIA 12/26/2017 DAVID VELASQUEZ MD Ot F41.9 ANXIETY DISORDER, UNSPECIFIED 12/26/2017 DAVID VELASQUEZ MD Ot H25.11 AGE-RELATED NUCLEAR CATARACT, RIGHT EYE 12/26/2017 DAVID VELASQUEZ MD Ot Z79.899 OTHER PENITENTIARY (CURRENT) DRUG THERAPY 12/26/2017 DAVID VELASQUEZ MD Ot E03.9 HYPOTHYROIDISM, UNSPECIFIED 12/26/2017 DAVID VELASQUEZ MD Ot F40.240 CLAUSTROPHOBIA 12/26/2017 DAVID VELASQUEZ MD Ot F41.9 ANXIETY DISORDER, UNSPECIFIED 12/26/2017 DAVID VELASQUEZ MD Ot H25.11 AGE-RELATED NUCLEAR CATARACT, RIGHT EYE 12/26/2017 DAVID VELASQUEZ MD Ot Z79.899 OTHER PENITENTIARY (CURRENT) DRUG THERAPY 05/21/2018 DAVID VELASQUEZ MD Ot Z01.818 ENCOUNTER FOR OTHER PREPROCEDURAL EXAMIN 05/21/2018 JAILENE BRYANT DO Ot V72.84 EXAM PRE-OPERATIVE NOS 05/21/2018 TOMMIE FARIAS DO Ot 793.82 INCONCLUSIVE MAMMOGRAM 05/21/2018 TOMMIE FARIAS DO Ot V76.12 OTH SCREEN MAMMO-MALIGN NEOPLASM OF YENI 05/21/2018 TOMMIE FARIAS DO Ot 793.89 OTH (ABN) FINDINGS ON RADIOLOGICAL EXAMI 05/21/2018 JJ FARIAS DOI Ot 793.80 UNSPEC ABNORMAL MAMMOGRAM 05/21/2018 JJ FARIAS DOI Ot 793.80 UNSPEC ABNORMAL MAMMOGRAM 05/21/2018 TOMMIE FARIAS DO Ot R92.2 INCONCLUSIVE MAMMOGRAM 05/21/2018 TOMMIE FARIAS DO Ot Z12.31 ENCNTR SCREEN MAMMOGRAM FOR MALIGNANT NE 05/21/2018 TOMMIE FARIAS DO Ot Z12.31 ENCNTR SCREEN MAMMOGRAM FOR MALIGNANT NE 05/21/2018 TOMMIE FARIAS DO Ot M47.816 SPONDYLOSIS W/O MYELOPATHY OR RADICULOPA 05/22/2018 DAVID VELASQUEZ MD Ot Z01.818 ENCOUNTER FOR OTHER PREPROCEDURAL EXAMIN Procedures There is no data. Results There is no data. Encounters ACCT No. Visit Date/Time Discharge Status Pt. Type Provider Facility Loc./Unit Complaint [id number] 05/21/2018 06:23:00 05/21/2018 09:56:00 DIS Outpatient DAVID VELASQUEZ MD [facility] PREOP RIGHT EYE YAG [id number] 12/25/2017 05:57:00 12/25/2017 07:32:00 DIS Outpatient DAVID VELASQUEZ MD [facility] CATARACT RIGHT EYE [id number] 12/21/2017 05:35:00 12/21/2017 09:00:00 DIS Outpatient DAVID VELASQUEZ MD [facility] PREOP CATARACT RIGHT EYE [id number] 04/24/2017 15:31:00 04/24/2017 23:59:59 CLS Outpatient FARIAS DO, TOMMIE [facility] RAD M54.40 R10.2 [id number] 03/05/2017 10:08:00 03/05/2017 23:59:59 CLS Outpatient FARIAS DO, TOMMIE [facility] RAD Z12.31 SCREENING MAMMO [id number] 03/06/2016 14:44:00 03/06/2016 23:59:59 CLS Outpatient FARIAS DO, TOMMIE [facility] RAD SCREENING [id number] 03/19/2015 10:26:00 03/19/2015 23:59:59 CLS Outpatient FARIAS DO, TOMMIE [facility] RAD SCREENING [id number] 03/17/2014 07:45:00 03/17/2014 23:59:59 CLS Outpatient FARIAS DO, TOMMIE [facility] RAD 6 MONTH FOLLOW UP [id number] 09/29/2013 13:19:00 09/29/2013 23:59:59 CLS Outpatient FARIAS DO, TOMMIE [facility] RAD ABNORMAL MAMMO [id number] 03/26/2013 13:40:00 03/26/2013 23:59:59 CLS Outpatient FARIAS DO, TOMMIE [facility] RAD ABN MAMMO [id number] 03/11/2013 14:49:00 03/11/2013 23:59:59 CLS Outpatient FARIAS DO, TOMMIE [facility] RAD SCREENING [id number] 01/14/2013 12:37:00 01/14/2013 15:35:00 DIS Outpatient JAILENE BRYANT DO [facility] SDC SCREENING [id number] 01/09/2013 07:21:00 01/09/2013 23:59:59 [facility] Outpatient JAILENE BRYANT DO [facility] PREOP SCREENING [id number] 05/22/2018 14:45:00 PEN PreadDAVID Cavanaugh MD [facility] RIGHT YAG [id number] 03/14/2011 06:00:00 Document Registration [id number] 03/06/2011 08:52:00 Document Registration [id number] 02/16/2009 08:59:00 Document Registration
[2018-05-22 10:35] VITALS: BP 147/77
[2018-05-22] MEDS: TETRACAINE 0.5% OPHTH SOLN 4 ML BTL (SINGLE DOSE ONLY) OU PRN ×3 (10:42→11:08)
[2018-05-22] MEDS: PHENYLEPHRINE 10% OPHTH (NEO-SYN) 5 ML BTL OU PRN ×3 (10:42→11:08)
[2018-05-22] MEDS: TROPICAMIDE 1% OPH SOLN (MYDRIACYL) 15 ML BTL OU PRN ×3 (10:42→11:08)
--- NOTE | 2018-05-22 11:18 | Ophthalmologist Pre-Op Note ---
Pre-Operative Progress Note H&P Reviewed The H&P was reviewed, patient examined and no changes noted. Date H&P Reviewed: May 22, 2018 Time H&P Reviewed: 11:18 Pre-Op Dx Secondary Cataract, Right Eye DAVID VELASQUEZ MD May 22, 2018 11:18
--- NOTE | 2018-05-22 11:28 | Ophthalmology Operative Report ---
YAG Capsulotomy PREOPERATIVE DIAGNOSIS: Secondary Cataract Right Eye POSTOPERATIVE DIAGNOSIS: Secondary Cataract Right Eye PROCEDURE: YAG Capsulotomy, right eye SURGEON: Kurt Velasquez ANESTHESIA: Topical anesthesia COMPLICATIONS: None ESTIMATED BLOOD LOSS: Minimal DESCRIPTION OF PROCEDURE: After proper informed consent was obtained, the patient's, a 72 female, right eye received one drop of Tropicamide and one drop of Tetracaine. The patient was then placed at the YAG laser and using a power of [4.5 ] millijoules and [ 32] bursts were used to fashion a central capsulotomy. The patient tolerated the procedure well without complications and the patient's pressure was [14] shortly after the laser. KURT VELASQUEZ MD May 22, 2018 11:28
[2018-05-22 11:34] VITALS: BP 147/77
== END 2018-05-22 11:25 | disposition home or self-care (01) ==
LOC: SDC 10:22
PROVIDERS: ATTEND Specialist
DX: H26.40 Unspecified secondary cataract (principal); Z79.899 Other long term (current) drug therapy

== ENCOUNTER → 2018-07-24 | Outpatient (CLI) | payer MEDICARE, OTHER ==
[~2018-07-24] VITALS: Ht 157.5 cm; Wt 64.4 kg
== END | disposition home or self-care (01) ==
LOC: PREOP 05:45
PROVIDERS: ATTEND Specialist
DX: Z01.818 Encounter for other preprocedural examination (principal)

== ENCOUNTER 2018-07-26 08:11 | Day surgery (SDC) | payer MEDICARE, OTHER ==
[~2018-07-26] VITALS: Ht 157.5 cm; Wt 64.4 kg
[2018-07-26 08:25] VITALS: BP 145/80
[2018-07-26] MEDS ORDERED: POVIDONE (BETADINE) OPHTH SOLN 5% 30 ML OP ONE (08:30)
[2018-07-26] MEDS ORDERED: TETRACAINE 0.5% OPHTH SOLN 4 ML BTL (SINGLE DOSE ONLY) OP ONE (08:30)
--- OUTSIDE RECORDS SUMMARY | 2018-07-26 08:36 | XMS REPORT | Continuity of Care Document ---
Author Organization Unknown Address Unknown Allergies Active Description Code Type Severity Reaction Onset Reported/Identified Relationship to Patient Clinical Status Yes Tetanus Vaccines Toxoid [id number] Drug Allergy Unknown SWELLING 03/06/2011 Yes codeine [id number] Drug Allergy Unknown MAKES HER HYPER 12/21/2017 Yes Tetanus Vaccines and Toxoid [id number] Drug Allergy Unknown SWELLING 12/21/2017 Medications There is no data. Problems Date [...] 625.6 FEM STRESS INCONTINENCE 03/03/2016 Ot V72.63 PRE-PROCEDURAL LABORATORY EXAMINATION 03/03/2016 Ot V74.8 SCREEN-BACTERIAL DIS NEC 03/03/2016 FLACA BRYANT DOTT D Ot V72.84 EXAM PRE-OPERATIVE NOS 03/03/2016 FARIAS DO, TOMMIE Ot 793.82 INCONCLUSIVE MAMMOGRAM 03/03/2016 JARRETT DO TOMMIE Ot V76.12 OTH SCREEN MAMMO-MALIGN NEOPLASM OF YENI 03/03/2016 FARIAS DO TOMMIE Ot 793.89 OTH (ABN) FINDINGS ON RADIOLOGICAL EXAMI 03/03/2016 JARRETT KWOK TOMMIE Ot 793.80 UNSPEC ABNORMAL MAMMOGRAM 03/03/2016 FARIAS DO TOMMIE Ot 793.80 UNSPEC ABNORMAL MAMMOGRAM 03/03/2016 JARRETT KWOK TOMMIE Ot R92.2 INCONCLUSIVE MAMMOGRAM 03/07/2016 JARRETT KWOK TOMMIE Ot Z12.31 ENCNTR SCREEN MAMMOGRAM FOR MALIGNANT NE 03/07/2016 JARRETT DO TOMMIE Ot Z12.31 ENCNTR SCREEN MAMMOGRAM FOR MALIGNANT NE 03/29/2016 JARRETT KWOK TOMMIE Ot Z12.31 ENCNTR SCREEN MAMMOGRAM FOR MALIGNANT NE 03/27/2017 JARRETT KWOK TOMMIE Ot Z12.31 ENCNTR SCREEN MAMMOGRAM FOR MALIGNANT NE 04/24/2017 BRYANT DO JAILENE D Ot V72.84 EXAM PRE-OPERATIVE NOS 04/24/2017 JARRETT KWOK TOMMIE Ot 793.82 INCONCLUSIVE MAMMOGRAM 04/24/2017 JARRETT KWOK TOMMIE Ot V76.12 OTH SCREEN MAMMO-MALIGN NEOPLASM OF YENI 04/24/2017 JARRETT KWOK TOMMIE Ot 793.89 OTH (ABN) FINDINGS ON RADIOLOGICAL EXAMI 04/24/2017 JARRETT KWOK TOMMIE Ot 793.80 UNSPEC ABNORMAL MAMMOGRAM 04/24/2017 JARRETT KWOK TOMMIE Ot 793.80 UNSPEC ABNORMAL MAMMOGRAM 04/24/2017 JARRETT KWOK TOMMIE Ot R92.2 INCONCLUSIVE MAMMOGRAM 04/24/2017 JARRETT KWOK TOMMIE Ot Z12.31 ENCNTR SCREEN MAMMOGRAM FOR MALIGNANT NE 04/24/2017 JARRETT DO TOMMIE Ot Z12.31 ENCNTR SCREEN MAMMOGRAM FOR MALIGNANT NE 04/25/2017 JARRETT DO TOMMIE Ot M47.816 SPONDYLOSIS W/O MYELOPATHY OR RADICULOPA 05/17/2017 JARRETT KWOK TOMMIE Ot M47.816 SPONDYLOSIS W/O MYELOPATHY OR RADICULOPA 10/31/2017 [place] DO, JAILENE D Ot V72.84 EXAM PRE-OPERATIVE [...] M47.816 SPONDYLOSIS W/O MYELOPATHY OR [facility]ICULOPA [facility] V72.84 EXAM PRE-OPERATIVE NOS 10/31/2017 [...] DO Ot V72.84 EXAM PRE-OPERATIVE NOS 12/25/2017 FARIASEMIL KWOK TOMMIE Ot 793.82 INCONCLUSIVE MAMMOGRAM 12/25/2017 JARRETT KWOK TOMMIE Ot V76.12 OTH SCREEN MAMMO-MALIGN NEOPLASM OF YENI 12/25/2017 JARRETT KWOK TOMMIE Ot 793.89 OTH (ABN) FINDINGS ON RADIOLOGICAL EXAMI 12/25/2017 JARRETT KWOK TOMMIE Ot 793.80 UNSPEC ABNORMAL MAMMOGRAM 12/25/2017 JARRETT KWOK TOMMIE Ot 793.80 UNSPEC ABNORMAL MAMMOGRAM 12/25/2017 JJ FARIAS DOI Ot R92.2 INCONCLUSIVE MAMMOGRAM 12/25/2017 JARRETT KWOK [...] 12/25/2017 DAVID VELASQUEZ MD Ot Z79.899 OTHER CERTIFIED LEGAL INVESTIGATOR (CURRENT) DRUG THERAPY 12/26/2017 DAVID VELASQUEZ MD Ot E03.9 HYPOTHYROIDISM, UNSPECIFIED 12/26/2017 DAVID VELASQUEZ MD Ot F40.240 CLAUSTROPHOBIA 12/26/2017 DAVID VELASQUEZ MD Ot F41.9 ANXIETY DISORDER, UNSPECIFIED 12/26/2017 DAVID VELASQUEZ MD Ot H25.11 AGE-RELATED NUCLEAR CATARACT, RIGHT EYE 12/26/2017 DAVID VELASQUEZ MD Ot Z79.899 OTHER RESIDENTIAL (CURRENT) DRUG THERAPY 12/26/2017 DAVID VELASQUEZ MD Ot E03.9 HYPOTHYROIDISM, UNSPECIFIED 12/26/2017 DAVID VELASQUEZ MD Ot F40.240 CLAUSTROPHOBIA 12/26/2017 DAVID VELASQUEZ MD Ot F41.9 ANXIETY DISORDER, UNSPECIFIED 12/26/2017 DAVID VELASQUEZ MD Ot H25.11 AGE-RELATED NUCLEAR CATARACT, RIGHT EYE 12/26/2017 DAVID VELASQUEZ MD Ot Z79.899 OTHER CERTIFIED LEGAL INVESTIGATOR (CURRENT) DRUG THERAPY 05/21/2018 DAVID VELASQUEZ MD Ot Z01.818 ENCOUNTER FOR OTHER PREPROCEDURAL EXAMIN 05/21/2018 JAILENE BRYANT DO Ot V72.84 EXAM PRE-OPERATIVE NOS 05/21/2018 JJ FARIAS DOI Ot 793.82 INCONCLUSIVE MAMMOGRAM 05/21/2018 TOMMIE FARIAS DO Ot V76.12 OTH SCREEN MAMMO-MALIGN NEOPLASM OF YENI 05/21/2018 JARRETT KWOK TOMMIE Ot 793.89 OTH (ABN) FINDINGS ON RADIOLOGICAL EXAMI 05/21/2018 JARRETT KWOK TOMMIE Ot 793.80 UNSPEC ABNORMAL MAMMOGRAM 05/21/2018 JARRETT KWOK TOMMIE Ot 793.80 UNSPEC ABNORMAL MAMMOGRAM 05/21/2018 JJ FARIAS DOI Ot R92.2 INCONCLUSIVE MAMMOGRAM 05/21/2018 JJ FARIAS DOI Ot Z12.31 ENCNTR SCREEN MAMMOGRAM FOR MALIGNANT NE 05/21/2018 TOMMIE FARIAS DO Ot Z12.31 ENCNTR SCREEN MAMMOGRAM FOR MALIGNANT NE 05/21/2018 TOMMIE FARIAS DO Ot M47.816 SPONDYLOSIS W/O MYELOPATHY OR RADICULOPA 05/22/2018 DAVID VELASQUEZ MD Ot Z01.818 ENCOUNTER FOR OTHER PREPROCEDURAL EXAMIN 05/22/2018 DAVID VELASQUEZ MD Ot H26.40 UNSPECIFIED SECONDARY CATARACT 05/22/2018 DAVID VELASQUEZ MD Ot Z79.899 OTHER RESIDENTIAL (CURRENT) DRUG THERAPY 05/24/2018 DAVID VELASQUEZ MD Ot H26.40 UNSPECIFIED SECONDARY CATARACT 05/24/2018 DAVID VELASQUEZ MD Ot Z79.899 OTHER CERTIFIED LEGAL INVESTIGATOR (CURRENT) DRUG THERAPY Procedures There is no data. Results There is no data. Encounters ACCT No. Visit Date/Time Discharge Status Pt. Type Provider Facility Loc./Unit Complaint [id number] 05/22/2018 10:22:00 05/22/2018 11:25:00 DIS Outpatient [facility] [id number] 05/21/2018 06:23:00 05/21/2018 09:56:00 DIS Outpatient DAVID VELASQUEZ MD [facility] PREOP RIGHT EYE YAG [id number] 12/25/2017 05:57:00 12/25/2017 07:32:00 DIS Outpatient DAVID VELASQUEZ MD [facility] CATARACT RIGHT EYE [id number] 12/21/2017 05:35:00 12/21/2017 09:00:00 DIS Outpatient DAVID VELASQUEZ MD [facility] PREOP CATARACT RIGHT EYE [id number] 04/24/2017 15:31:00 04/24/2017 23:59:59 CLS Outpatient FARIAS DO, TOMMIE [facility] RAD M54.40 R10.2 [id number] 03/05/2017 10:08:00 03/05/2017 23:59:59 CLS Outpatient FARIAS DO, TOMMIE [facility] RAD Z12.31 SCREENING MAMMO [id number] 03/06/2016 14:44:00 03/06/2016 23:59:59 CLS Outpatient FARIAS DO, TOMMIE [facility] RAD SCREENING [id number] 03/19/2015 10:26:00 03/19/2015 23:59:59 CLS Outpatient FARIAS DO, TOMMIE [facility] RAD SCREENING [id number] 03/17/2014 07:45:00 03/17/2014 23:59:59 CLS Outpatient FARIAS DO, TOMMIE [facility] RAD 6 MONTH FOLLOW UP [id number] 09/29/2013 13:19:00 09/29/2013 23:59:59 CLS Outpatient FARIAS DO, TOMMIE [facility] RAD ABNORMAL MAMMO [id number] 03/26/2013 13:40:00 03/26/2013 23:59:59 CLS Outpatient JARRETT KWOK TOMMIE [facility] RAD ABN MAMMO [id number] 03/11/2013 14:49:00 03/11/2013 23:59:59 CLS Outpatient FARIASEMIL KWOK TOMMIE [facility] RAD SCREENING [id number] 01/14/2013 12:37:00 01/14/2013 15:35:00 DIS Outpatient JAILENE BRYANT DO [facility] SDC SCREENING [id number] 01/09/2013 07:21:00 01/09/2013 23:59:59 CLS Outpatient JAILENE BRYANT DO [facility] PREOP SCREENING [id number] 07/26/2018 10:00:00 PEN Preadmit DAVID VELASQUEZ MD [facility] FRAGMENT [id number] 07/24/2018 05:45:00 ACT Outpatient DAVID VELASQUEZ MD [facility] PREOP FRAGMENT [id number] 03/14/2011 06:00:00 Document Registration [id number] 03/06/2011 08:52:00 Document Registration [id number] 02/16/2009 08:59:00 Document Registration
[2018-07-26] MEDS: PILOCARPINE 2% OU SCH ×3 (09:00→09:10)
--- NOTE | 2018-07-26 09:24 | Ophthalmologist Pre-Op Note ---
Pre-Operative Progress Note H&P Reviewed The H&P was reviewed, patient examined and no changes noted. Date H&P Reviewed: July 26, 2018 Time H&P Reviewed: 09:24 Pre-Op Dx Cataract Fragment, Right Eye DAVID VELASQUEZ MD July 26, 2018 09:24
[2018-07-26] MEDS ORDERED: MIDAZOLAM 2 MG/2 ML (VERSED) VIAL ONE (09:39)
[2018-07-26] MEDS ORDERED: ACETAMINOPHEN 500 MG TAB (TYLENOL) ONE (09:43)
[2018-07-26 10:00] VITALS: BP 151/75
[2018-07-26] MEDS ORDERED: MOXIFLOXACIN OPHTH SOLN 5 MG/ML 0.3 ML SYRINGE OP ONE (10:15)
[2018-07-26] MEDS ORDERED: TIMOLOL MALEATE 0.5% 5 ML (TIMOPTIC) BTL OU PRN (10:15)
[2018-07-26] MEDS ORDERED: LIDOCAINE PF 1% 2 ML AMP IR PRN (10:15)
--- NOTE | 2018-07-26 10:50 | Anesthesia-General Post-Op ---
MAC Patient Condition Mental Status/LOC: Same as Preop Cardiovascular: Satisfactory Nausea/Vomiting: Absent Respiratory: Satisfactory Pain: Controlled Complications: Absent Post Op Complications Complications None Follow Up Care/Instructions Patient Instructions None needed. Anesthesiology Discharge Order Discharge Order Patient is doing well, no complaints, stable vital signs, no apparent adverse anesthesia problems. No complications reported per nursing. MARTHA WILSON CRNA July 26, 2018 10:50
--- NOTE | 2018-07-27 05:43 | OPERATIVE REPORT ---
DATE OF SERVICE: 07/26/2018 PREOPERATIVE DIAGNOSIS: Retained nuclear fragment of cataract, right eye. POSTOPERATIVE DIAGNOSIS: Retained nuclear fragment of cataract, right eye. PROCEDURE: Fragment removal, right eye. ANESTHESIA: Topical with IV sedation. COMPLICATIONS: None. DESCRIPTION OF PROCEDURE: An informed consent was obtained from the patient and placed on her chart. Prior to taking to the operating room, pilocarpine drops were placed to constrict the pupil and IV was started as well. She was then taken to the operating room and placed in a supine position on the operating table. She was sedated by the anesthesia provider. She was then prepped and draped in the usual sterile fashion. A wire lid speculum was placed and the operating microscope was moved into position. The paracentesis was reopened and preservative-free lidocaine was injected into the anterior chamber followed by viscoelastic. The clear corneal incision was then reopened as well. An irrigation aspiration handpiece was placed into the anterior chamber and the nuclear fragment was aspirated into the port. The remaining viscoelastic was aspirated as well. The anterior chamber was then filled with balanced salt saline. The wounds were checked and found to be watertight. Moxifloxacin was injected into the anterior chamber. The wire lid speculum and surgical drapes were removed. The patient tolerated the procedure well and was taken to the recovery room in stable condition. 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
== END 2018-07-26 10:00 | disposition home or self-care (01) ==
LOC: SDC 08:11
PROVIDERS: ATTEND Specialist
DX: H59.021 Cataract (lens) fragments in eye following cataract surgery, right eye (principal)

== ENCOUNTER → 2019-03-10 | Outpatient (CLI) | payer MEDICARE, OTHER ==
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
== END ==
LOC: RAD 15:37
PROVIDERS: ATTEND Nurse Practitioner Family
DX: J70.5 Respiratory conditions due to smoke inhalation (principal); J45.901 Unspecified asthma with (acute) exacerbation; E03.8 Other specified hypothyroidism; R91.8 Other nonspecific abnormal finding of lung field; Z90.49 Acquired absence of other specified parts of digestive tract
CPT/HCPCS: 71250

== ENCOUNTER → 2019-04-14 | Outpatient (CLI) | payer MEDICARE, OTHER ==
[~2019-04-14] MED LIST changes: +RT-ALBUTEROL SULF 2.5 MG/3 ML PRE-MIX VIAL INH ONE; +RT-ALBUTEROL SULF 2.5 MG/3 ML PRE-MIX VIAL ONE
== END ==
LOC: RT 14:28
PROVIDERS: ATTEND Internal Medicine
DX: R06.00 Dyspnea, unspecified (principal)
CPT/HCPCS: 94060; 94726; 94729

== ENCOUNTER 2020-01-26 05:41 | Outpatient (RCR) | payer MEDICARE, OTHER ==
[~2020-01-26] VITALS: Ht 157.5 cm; Wt 66.4 kg
[~2020-01-26 05:41] MED LIST changes: -RT-ALBUTEROL SULF 2.5 MG/3 ML PRE-MIX VIAL INH ONE; -RT-ALBUTEROL SULF 2.5 MG/3 ML PRE-MIX VIAL ONE
[2020-01-26] MEDS ORDERED: LEVO125T6 PO (14:32)
[2020-01-26] MEDS ORDERED: LEVO137T2 PO (14:32)
[2020-01-26] MEDS ORDERED: FLUT1DIS26 IH (14:34)
[2020-01-26] MEDS ORDERED: LEVO5TAB12 PO (14:34)
[2020-01-26] MEDS ORDERED: MONT10TA97 PO (14:34)
== END 2020-01-26 14:36 | disposition home or self-care (01) ==
LOC: PREOP 05:41
PROVIDERS: ATTEND Specialist
DX: Z01.818 Encounter for other preprocedural examination (principal)

== ENCOUNTER 2020-01-30 06:52 | Day surgery (SDC) | payer MEDICARE, OTHER ==
[~2020-01-30 06:52] MED LIST changes: +FLUT1DIS26 IH; +LEVO125T6 PO; +LEVO137T2 PO; +LEVO5TAB12 PO; +MONT10TA97 PO
[2020-01-30] MEDS ORDERED: TROPICAMIDE 1% OPH SOLN (MYDRIACYL) 15 ML BTL OU PRN (07:15)
[2020-01-30] MEDS ORDERED: TETRACAINE 0.5% OPHTH SOLN 4 ML BTL (SINGLE DOSE ONLY) OU PRN (07:15)
[2020-01-30] MEDS ORDERED: PHENYLEPHRINE 10% OPHTH (NEO-SYN) 5 ML BTL OU PRN (07:15)
[2020-01-30 07:29] VITALS: BP 131/81
[2020-01-30 07:45] VITALS: BP 131/81
--- NOTE | 2020-01-30 08:10 | Ophthalmology Operative Report ---
YAG Capsulotomy PREOPERATIVE DIAGNOSIS: Secondary Cataract Left Eye POSTOPERATIVE DIAGNOSIS: Secondary Cataract Left Eye PROCEDURE: YAG Capsulotomy, left eye SURGEON: Kurt Velasquez ANESTHESIA: Topical anesthesia COMPLICATIONS: None ESTIMATED BLOOD LOSS: Minimal DESCRIPTION OF PROCEDURE: After proper informed consent was obtained, the patient's, a 74 female left eye received one drop of Tropicamide and one drop of Tetracaine. The patient was then placed at the YAG laser and using a power of [ 4.5] millijoules and [ 18] bursts were used to fashion a central capsulotomy. The patient tolerated the procedure well without complications. KURT VELASQUEZ MD Jan 30, 2020 08:10
--- NOTE | 2020-01-30 08:10 | Ophthalmologist Pre-Op Note ---
Pre-Operative Progress Note H&P Reviewed The H&P was reviewed, patient examined and no changes noted. Date H&P Reviewed: Jan 30, 2020 Time H&P Reviewed: 07:41 Pre-Op Dx Secondary Cataract, Right Eye DAVID VELASQUEZ MD Jan 30, 2020 08:10
== END 2020-01-30 07:45 | disposition home or self-care (01) ==
LOC: SDC 06:52
PROVIDERS: ATTEND Specialist
DX: H26.492 Other secondary cataract, left eye (principal); J45.909 Unspecified asthma, uncomplicated; E03.9 Hypothyroidism, unspecified; Z79.899 Other long term (current) drug therapy; Z88.5 Allergy status to narcotic agent; Z88.7 Allergy status to serum and vaccine; Z80.0 Family history of malignant neoplasm of digestive organs

== ENCOUNTER → 2020-05-11 | Outpatient (CLI) | payer MEDICARE, OTHER ==
[~2020-05-11] MED LIST changes: +CATHETER FLUSH 10 ML SYR IV PRN; +HOLD METFORMIN - RECEIVED CONTRAST 20 ML VIAL IV SCH; +IOHEXOL 350 MG/ML 100 ML (OMNIPAQUE 350) VIAL IV ONE; +MONT10TA32 PO; -MONT10TA97 PO; +NS 100 ML (IVPB) BAG IV ONE
[2020-05-11 09:16] LABS: BUN/CREATININE RATIO 21; CREATININE SERUM 0.86 MG/DL (0.60-1.30); GFR ESTIMATED > 60
--- NOTE | 2020-05-11 10:25 | Diagnostic Imaging Report ---
PROCEDURE: CT chest with contrast only. TECHNIQUE: Multiple contiguous axial images were obtained through the chest after administration of intravenous contrast. Auto Exposure Controls were utilized during the CT exam to meet ALARA standards for radiation dose reduction. INDICATION: Lung nodules The previous CT chest exam performed on 03/10/2019 noted a few small (4 mm or less) nodules involving the right lower lobe as well as a few micronodules in the right upper lobe. Those findings are again evident on this study and do not appear to have changed significantly (Images 96 and 99 of 160). There is also a small 5 mm perifissural nodule on the left (image 77 of 160). This finding was also present on the prior exam and has not changed. There is no new parenchymal mass identified. The mild chronic pulmonary changes seen previously are again visualized and stable. There is no sign of failure, pneumonia or pleural effusion to indicate an acute abnormality. The heart size is borderline enlarged. There are little if any coronary artery calcifications noted. The aorta is not abnormally dilated and there is no sign of a dissection. There is no defect within the pulmonaries indicate a pulmonary embolus either. There is no mediastinal or hilar adenopathy. The thyroid gland is generally unremarkable. There is no obvious breast mass. The sections through the upper abdomen failed to show any sign of an acute abnormality. As noted on the prior exam the liver is of lower density than usually seen and this does suggest fatty metamorphosis. The bone windows are unremarkable for a fracture or for destructive lesion. Impression: 1. There is no evidence for an acute cardiopulmonary abnormality. 2. The small parenchymal nodules involving the lung seen previously appear stable. Most likely they are benign. If further study is desired, followup CT chest exam in one year would be recommended. 3. There is borderline cardiomegaly but there is no clear evidence for coronary artery calcifications. 4. The appearance of the liver does suggest fatty metamorphosis. Dictated by: Dictated on workstation # [id number]
== END ==
LOC: RAD 08:36
PROVIDERS: ATTEND Nurse Practitioner Family
DX: R91.8 Other nonspecific abnormal finding of lung field (principal)
CPT/HCPCS: 36415; 71260; 82565; 84520

== ENCOUNTER → 2020-05-11 | Outpatient (CLI) | payer MEDICARE, OTHER ==
--- NOTE | 2020-05-11 12:35 | Diagnostic Imaging Report ---
INDICATION: Routine screening. Comparison is made with prior mammogram 03/05/2017 and 03/06/2016. 2-D and 3-D bilateral screening mammography was performed with CAD. Both breasts are heterogeneously dense, limiting the sensitivity of mammography. Small benign nodules in the lateral left breast again noted and appear unchanged. There are scattered benign calcifications in both breasts. No spiculated mass or malignant appearing microcalcifications are seen. Axillae are unremarkable. IMPRESSION: BI-RADS Category 2 No mammographic features suspicious for malignancy are identified. ACR BI-RADS Category 2: Benign findings. Result letter will be mailed to the patient. Note: At least 10% of breast cancer is not imaged by mammography. Dictated by: Dictated on workstation # [id number]
== END ==
LOC: RAD 09:45
PROVIDERS: ATTEND Internal Medicine
DX: Z12.31 Encounter for screening mammogram for malignant neoplasm of breast (principal)
CPT/HCPCS: 77063; 77067

== ENCOUNTER 2020-06-11 09:24 | Emergency (ER) | payer MEDICARE, OTHER ==
[~2020-06-11] VITALS: Ht 157 cm; Wt 68.0 kg
[~2020-06-11 09:24] MED LIST changes: -CATHETER FLUSH 10 ML SYR IV PRN; -HOLD METFORMIN - RECEIVED CONTRAST 20 ML VIAL IV SCH; -IOHEXOL 350 MG/ML 100 ML (OMNIPAQUE 350) VIAL IV ONE; -NS 100 ML (IVPB) BAG IV ONE
[2020-06-11 09:38] VITALS: BP 153/108
[2020-06-11] MEDS ORDERED: ONDANSETRON 4 MG/2 ML (SDV) Z0FRAN IVP ONE (10:00)
[2020-06-11] MEDS ORDERED: NS IV 1000 ML 1,000 ML IV SCH (10:00)
[2020-06-11 10:05] LABS: BILIRUBIN,URINE NEGATIVE (NEGATIVE); CLARITY,URINE CLEAR; COLOR,URINE DARK YELLOW; GLUCOSE, URINE (UA) NEGATIVE (NEGATIVE); KETONES,URINE NEGATIVE (NEGATIVE); LEUKOCYTE ESTERASE ,URINE TRACE (NEGATIVE); NITRITE,URINE NEGATIVE (NEGATIVE); PROTEIN,URINE NEGATIVE (NEGATIVE)
[2020-06-11 10:16] LABS: BACTERIA,URINE NEGATIVE /HPF; RBC,URINE 0-2 /HPF; SQUAMOUS EPITHELIAL CELL,UR RARE /HPF; WBC,URINE RARE /HPF
[2020-06-11 10:16] LABS: BASOPHILS # (AUTO) 0.1 10^3/uL (0.0-0.1); BASOPHILS % (AUTO) 1 % (0-10); EOSINOPHILS % (AUTO) 0 % (0-10); HEMATOCRIT 44 % (35-52); HEMOGLOBIN 14.2 g/dL (11.5-16.0); LYMPHOCYTES # (AUTO) 1.7 10^3/uL (1.0-4.0); LYMPHOCYTES % (AUTO) 16 % (12-44); MEAN CORPUSCULAR HEMOGLOBIN 28 pg (25-34); MEAN CORPUSCULAR HGB CONC 32 g/dL (32-36); MEAN CORPUSCULAR VOLUME 85 fL (80-99); MEAN PLATELET VOLUME 9.5 fL (9.0-12.2); MONOCYTES # (AUTO) 0.9 10^3/uL (0.0-1.0); MONOCYTES % (AUTO) 9 % (0-12); NEUTROPHILS # (AUTO) 7.7 10^3/uL (1.8-7.8); NEUTROPHILS % (AUTO) 74 % (42-75); PLATELET COUNT 272 10^3/uL (130-400); WHITE BLOOD COUNT 10.4 10^3/uL (4.3-11.0)
[2020-06-11 10:29] LABS: ALANINE AMINOTRANSFERASE 24 U/L (0-55); ALBUMIN 4.3 GM/DL (3.2-4.5); ALKALINE PHOSPHATASE 90 U/L (40-136); BILIRUBIN,TOTAL 0.6 MG/DL (0.1-1.0); BUN/CREATININE RATIO 16; CALCIUM 9.2 MG/DL (8.5-10.1); CARBON DIOXIDE 24 MMOL/L (21-32); CHLORIDE 104 MMOL/L (98-107); GFR ESTIMATED > 60; GLUCOSE 116 MG/DL (70-105); LIPASE 23 U/L (8-78); MAGNESIUM 2.2 MG/DL (1.6-2.4); POTASSIUM 3.8 MMOL/L (3.6-5.0); SODIUM 140 MMOL/L (135-145); TOTAL PROTEIN 7.2 GM/DL (6.4-8.2)
[2020-06-11 10:50] LABS: FREE T4 (FREE THYROXINE) 1.19 NG/DL (0.70-1.48)
--- NOTE | 2020-06-11 10:59 | ED Abdominal Pain ---
General Chief Complaint: Abdominal/GI Problems Stated Complaint: CONSTIPATION Nursing Triage Note: AMBULATED TO ROOM 07 WITHOUT DIFFICULTY. COMPLAINS OF NO BM SINCE SUNDAY ET STARTED FEELING CONSTIPATED YESTERDAY. HAS TAKEN X2 DULCOLOX YESTERDAY AND DID A FLEETS ENEMA THIS AM. Sepsis Screen: No Definite Risk Source of Information: Patient, Old Records Exam Limitations: No Limitations History of Present Illness Date Seen by Provider: Jun 11, 2020 Time Seen by Provider: 09:50 Initial Comments This 74-year-old woman presents to the emergency room with complaints of lower abdominal pain and inability to produce a bowel movement for the past 3 days. Additionally she has had "upset stomach" including upper abdominal discomfort and nausea for about a month. She has history of colon polyps and required consultation with Dr. Guerrero for a difficult polyp. Her last colonoscopy was about 5 years ago. She has a family history of liver and colon cancer. She is afebrile but felt chilled last night. She has significant tenderness on the left abdomen. She also feels a bit weak and dehydrated. Allergies and Home Medications Allergies Coded Allergies: Tetanus Vaccines and Toxoid (Unverified Allergy, Unknown, SWELLING, 12/21/17) codeine (Unverified Allergy, Unknown, MAKES HER HYPER, 12/21/17) Home Medications Famotidine 20 Mg Tablet, 20 MG PO BID Prescribed by: ALYSSIA MORENO on 06/11/20 1257 Fluticasone/Salmeterol 1 Each Blst.w.dev, 1 EACH IH BID, (Reported) Levocetirizine Dihydrochloride 5 Mg Tablet, 5 MG PO HS, (Reported) Levothyroxine Sodium 125 Mcg Tablet, 125 MCG PO Q48H, (Reported) Levothyroxine Sodium 137 Mcg Tablet, 137 MCG PO Q48H, (Reported) Montelukast Sodium 10 Mg Tablet, 10 MG PO HS, (Reported) Polyethylene Glycol 3350 119 Gm Powder, 17 GM PO TID PRN for CONSTIPATION-1ST LINE Fill cap to line. Mix with 8-12 oz clear liquid & take up to three times daily until good BM. Prescribed by: ALYSSIA MORENO on 06/11/20 1257 Patient Home Medication List Home Medication List Reviewed: Yes Review of Systems Review of Systems Constitutional: see HPI EENTM: No Symptoms Reported Respiratory: No Symptoms Reported Cardiovascular: No Symptoms Reported Gastrointestinal: See HPI Genitourinary: No Symptoms Reported Musculoskeletal: no symptoms reported Skin: no symptoms reported Psychiatric/Neurological: No Symptoms Reported Endocrine: No Symptoms Reported Hematologic/Lymphatic: No Symptoms Reported Past Ldwgoxt-Vjihfo-Jchgri Hx Past Med/Social Hx: Reviewed Nursing Past Med/Soc Hx Patient Social History Recent Infectious Disease Expo: No Immunizations Up To Date Date of Pneumonia Vaccine: Jan 14, 2011 Seasonal Allergies Seasonal Allergies: Yes Past Medical History Surgeries: Yes Bladder Surgery (Bladder sling), Gallbladder Respiratory: Yes Asthma Cardiac: No Neurological: No : No Reproductive Disorders: No Genitourinary: Yes (Bladder sling) Gastrointestinal: Yes Polyps Musculoskeletal: No Endocrine: Yes Hypothyroidsim HEENT: No Cancer: No Psychosocial: No Integumentary: No Family Medical History Cancer (Liver and colon) Physical Exam Vital Signs Vital Signs - First Documented 06/11/20 09:38 Temp 36.7 Pulse 86 Resp 16 B/P (MAP) 153/108 (123) Pulse Ox 99 O2 Delivery Room Air Capillary Refill : Less Than 3 Seconds Height/Weight/BMI Height: 5'2.00" Weight: 142lbs. 0.0oz. 64.512386np; 27.00 BMI Method: General Appearance: WD/WN, no apparent distress HEENT: PERRL/EOMI, normal ENT inspection, other (Mucous membranes somewhat dry) Neck: normal inspection Respiratory: lungs clear, normal breath sounds, no respiratory distress Cardiovascular: regular rate, rhythm, no edema, no murmur Gastrointestinal: normal bowel sounds, soft, tenderness (Generalized but more prominent in the left abdomen) Extremities: normal inspection, no pedal edema Neurologic/Psychiatric: industrial cleaner II-XII nml as tested, no motor/sensory deficits, alert, normal mood/affect, oriented x 3 Skin: normal color, warm/dry Progress/Results/Core Measures Results/Orders Lab Results Laboratory Tests Test 06/11/20 10:00 06/11/20 10:05 Range/Units Urine Color DARK YELLOW Urine Clarity CLEAR Urine pH 6.0 5-9 Urine Specific [place] 1.025 H 1.016-1.022 Urine Protein NEGATIVE NEGATIVE Urine Glucose (UA) NEGATIVE NEGATIVE Urine Ketones NEGATIVE NEGATIVE Urine Nitrite NEGATIVE NEGATIVE Urine Bilirubin NEGATIVE NEGATIVE Urine Urobilinogen 0.2 < = 1.0 MG/DL Urine Leukocyte Esterase TRACE H NEGATIVE Urine RBC (Auto) 2+ H NEGATIVE Urine RBC 0-2 /HPF Urine WBC RARE /HPF Urine Squamous Epithelial Cells RARE /HPF Urine Crystals NONE /LPF Urine Bacteria NEGATIVE /HPF Urine Casts NONE /LPF Urine Mucus NEGATIVE /LPF Urine Culture Indicated NO White Blood Count 10.4 4.3-11.0 10^3/uL Red Blood Count 5.17 H 3.80-5.11 10^6/uL Hemoglobin 14.2 11.5-16.0 g/dL Hematocrit 44 35-52 % Mean Corpuscular Volume 85 80-99 fL Mean Corpuscular Hemoglobin 28 25-34 pg Mean Corpuscular Hemoglobin Concent 32 32-36 g/dL Red Cell Distribution Width 13.1 10.0-14.5 % Platelet Count 272 130-400 10^3/uL Mean Platelet Volume 9.5 9.0-12.2 fL Immature Granulocyte % (Auto) 1 % Neutrophils (%) (Auto) 74 42-75 % Lymphocytes (%) (Auto) 16 12-44 % Monocytes (%) (Auto) 9 0-12 % Eosinophils (%) (Auto) 0 0-10 % Basophils (%) (Auto) 1 0-10 % Neutrophils # (Auto) 7.7 1.8-7.8 10^3/uL Lymphocytes # (Auto) 1.7 1.0-4.0 10^3/uL Monocytes # (Auto) 0.9 0.0-1.0 10^3/uL Eosinophils # (Auto) 0.0 0.0-0.3 10^3/uL Basophils # (Auto) 0.1 0.0-0.1 10^3/uL Immature Granulocyte # (Auto) 0.1 0.0-0.1 10^3/uL Sodium Level 140 135-145 MMOL/L Potassium Level 3.8 3.6-5.0 MMOL/L Chloride Level 104 98-107 MMOL/L Carbon Dioxide Level 24 21-32 MMOL/L Anion Gap 12 5-14 MMOL/L Blood Urea Nitrogen 13 7-18 MG/DL Creatinine 0.80 0.60-1.30 MG/DL Estimat Glomerular Filtration Rate > 60 BUN/Creatinine Ratio 16 Glucose Level 116 H 70-105 MG/DL Calcium Level 9.2 8.5-10.1 MG/DL Corrected Calcium 9.0 8.5-10.1 MG/DL Magnesium Level 2.2 1.6-2.4 MG/DL Total Bilirubin 0.6 0.1-1.0 MG/DL Aspartate Amino Transf (AST/SGOT) 17 5-34 U/L Alanine Aminotransferase (ALT/SGPT) 24 0-55 U/L Alkaline Phosphatase 90 40-136 U/L C-Reactive Protein High Sensitivity 1.21 H 0.00-0.50 MG/DL Total Protein 7.2 6.4-8.2 GM/DL Albumin 4.3 3.2-4.5 GM/DL Lipase 23 8-78 U/L Thyroid Stimulating Hormone (TSH) 0.20 L 0.35-4.94 UIU/ML Free Thyroxine 1.19 0.70-1.48 NG/DL My Orders Orders - ALYSSIA ADAMS MD Cbc With Automated Diff (06/11/20 09:51) Comprehensive Metabolic Panel (06/11/20 09:51) Hs C Reactive Protein (06/11/20 09:51) Lipase (06/11/20 09:51) Magnesium (06/11/20 09:51) Thyroid Stimulating Hormone (06/11/20 09:51) Ua Culture If Indicated (06/11/20 09:51) Free T4 (Free Thyroxine) (06/11/20 09:51) Ed Iv/Invasive Line Start (06/11/20 09:51) Ns Iv 1000 Ml (Sodium Chloride 0.9%) (06/11/20 10:00) Ondansetron Injection (Zofran Injectio (06/11/20 10:00) Ct Abdomen/Pelvis W (06/11/20 10:52) Iohexol Injection (Omnipaque 350 Mg/Ml 1 (06/11/20 11:15) Received Contrast (Hold Metformin- Contr (06/11/20 11:15) Sodium Chloride Flush (Catheter Flush Sy (06/11/20 11:15) Ns (Ivpb) (Sodium Chloride 0.9% Ivpb Bag (06/11/20 11:15) Ketorolac Injection (Toradol Injection) (06/11/20 13:00) Medications Given in ED Current Medications Medications Dose Ordered Sig/Mynor Route Start Time Stop Time Status Last Admin Dose Admin Iohexol 100 ml ONCE ONCE IV 06/11/20 11:15 06/11/20 11:16 DC 06/11/20 11:49 100 ML Ondansetron HCl 4 mg ONCE ONCE IVP 06/11/20 10:00 06/11/20 10:01 DC 06/11/20 10:03 4 MG Sodium Chloride 10 ml NEEDED PRN IV 06/11/20 11:15 06/11/20 11:50 10 ML Sodium Chloride 100 ml ONCE ONCE IV 06/11/20 11:15 06/11/20 11:16 DC 06/11/20 11:49 80 ML Vital Signs/I&O 06/11/20 09:38 Temp 36.7 Pulse 86 Resp 16 B/P (MAP) 153/108 (123) Pulse Ox 99 O2 Delivery Room Air Blood Pressure Mean: 123 Progress Progress Note #1: Time: 10:58 Progress Note Zofran and IV fluids have been administered. Initial work-up was unremarkable. We discussed imaging options. After discussion of risks and benefits, patient elects to proceed with CT of the abdomen and pelvis. Progress Note #2: Time: 13:[address] scan revealed constipation but no other pathology to explain her pain. There was a small spot on the liver too small to characterize. Patient was asked to follow-up with Dr. Farias regarding this finding. Otherwise, she is being treated with Zofran, Pepcid, and MiraLAX. See discharge instructions for further discussion. Diagnostic Imaging Diagonstic Imaging: CT Plain Films/CT/US/NM/MRI: abdomen, pelvis Comments CT abdomen pelvis viewed by me and report reviewed. See report below: NAME: ALLEN GOEL [facility] REC#: [id number] PT STATUS: REG ER : 1945 PHYSICIAN: ALYSSIA ADAMS MD ADMIT DATE: 06/11/20/ER Draft Date of Exam:06/11/20 CT ABDOMEN/PELVIS W PROCEDURE: CT abdomen and pelvis with contrast. TECHNIQUE: Multiple contiguous axial images were obtained through the abdomen and pelvis after administration of intravenous contrast. Auto Exposure Controls were utilized during the CT exam to meet ALARA standards for radiation dose reduction. All CT scans use one or more of the following dose optimizing techniques: automated exposure control, MA and/or KvP adjustment based on patient size and exam type or iterative reconstruction. INDICATION: Lower abdominal pain with chills, nausea and constipation. COMPARISON: No prior studies are available for comparison. The lung bases are clear. There is a tiny low-density left lobe of the liver, too small to characterize. Liver is otherwise unremarkable. The gallbladder is surgically absent. No biliary ductal dilatation is seen. The pancreas and spleen are unremarkable. No adrenal mass is detected. The left kidney is unremarkable. Right kidney contains low-attenuation lesions, the largest upper pole measuring 5.2 x 4.5 cm and consistent with cysts. Aorta is calcified but nonaneurysmal. There is moderate stool throughout the colon consistent with constipation. Small bowel is normal caliber. No obstruction is seen. There is no free fluid or fluid collection identified. The bladder is unremarkable. Uterus appears to be surgically absent. Bony structures are nonacute. IMPRESSION: Moderate stool consistent with constipation. The study is otherwise unremarkable. Dictated on workstation # [id number] Dict: 06/11/20 1215 Trans: 06/11/20 1219 [facility] [id number] Interpreted by: JOHNNY LI MD Departure Impression Primary Impression: Constipation Qualified Codes: K59.00 - Constipation, unspecified Additional Impressions: Generalized abdominal pain Abnormal CT of liver Disposition: HOME, SELF-CARE Condition: Improved Departure-Patient Inst. Decision time for Depature: 12:30 Referrals: TOMMIE FARIAS DO (PCP/Family) Primary Care Physician Patient Instructions: Severe Abdominal Pain, Adult (DC), Constipation, Adult ED Add. Discharge Instructions: Drink plenty of clear liquids. Consume primarily clear liquids until you produce a good bowel movement. Try MiraLAX as prescribed until you achieve a good bowel movement and symptoms improve. Follow-up with Dr. Farias to review the imaging and lab results from this visit. You should see her in 1 to 2 weeks. There was a small spot on your liver, too small to characterize. Discuss the possibility of further evaluation at a later date to monitor stability or progression. Use antacid medication such as Pepcid for at least 2 weeks. Call with questions or concerns. Return to the emergency room if you have worsening symptoms. All discharge instructions reviewed with patient and/or family. Voiced understan rizwana. Scripts Ondansetron (Ondansetron Odt) 4 Mg Tab.rapdis 4 MG SL Q4H PRN for NAUSEA/VOMITING, #10 TAB Prov: ALYSSIA ADAMS MD 06/11/20 Polyethylene Glycol 3350 (Miralax) 119 Gm Powder 17 GM PO TID PRN for CONSTIPATION-1ST LINE, #1 EA Fill cap to line. Mix with 8-12 oz clear liquid & take up to three times daily until good BM. Prov: ALYSSIA ADAMS MD 06/11/20 Famotidine (Pepcid) 20 Mg Tablet 20 MG PO BID, #30 TAB Prov: ALYSSIA ADAMS MD 06/11/20 Copy Copies To 1: TOMMIE FARIAS JOSHUA T MD Jun 11, 2020 10:58
[2020-06-11] MEDS ORDERED: NS 100 ML (IVPB) BAG IV ONE (11:15)
[2020-06-11] MEDS ORDERED: IOHEXOL 350 MG/ML 100 ML (OMNIPAQUE 350) VIAL IV ONE (11:15)
[2020-06-11] MEDS ORDERED: CATHETER FLUSH 10 ML SYR IV PRN (11:15)
[2020-06-11] MEDS ORDERED: HOLD METFORMIN - RECEIVED CONTRAST 20 ML VIAL IV SCH (11:15)
--- NOTE | 2020-06-11 12:19 | Diagnostic Imaging Report ---
PROCEDURE: CT abdomen and pelvis with contrast. TECHNIQUE: Multiple contiguous axial images were obtained through the abdomen and pelvis after administration of intravenous contrast. Auto Exposure Controls were utilized during the CT exam to meet ALARA standards for radiation dose reduction. All CT scans use one or more of the following dose optimizing techniques: automated exposure control, MA and/or KvP adjustment based on patient size and exam type or iterative reconstruction. INDICATION: Lower abdominal pain with chills, nausea and constipation. COMPARISON: No prior studies are available for comparison. The lung bases are clear. There is a tiny low-density left lobe of the liver, too small to characterize. Liver is otherwise unremarkable. The gallbladder is surgically absent. No biliary ductal dilatation is seen. The pancreas and spleen are unremarkable. No adrenal mass is detected. The left kidney is unremarkable. Right kidney contains low-attenuation lesions, the largest upper pole measuring 5.2 x 4.5 cm and consistent with cysts. Aorta is calcified but nonaneurysmal. There is moderate stool throughout the colon consistent with constipation. Small bowel is normal caliber. No obstruction is seen. There is no free fluid or fluid collection identified. The bladder is unremarkable. Uterus appears to be surgically absent. Bony structures are nonacute. IMPRESSION: Moderate stool consistent with constipation. The study is otherwise unremarkable. Dictated by: Dictated on workstation # [id number]
[2020-06-11] MEDS ORDERED: POLY119P5 PO (12:57)
[2020-06-11] MEDS ORDERED: FAMO-119 PO (12:57)
[2020-06-11] MEDS ORDERED: KETOROLAC 30 MG/ML VIAL IVP ONE (13:00)
[2020-06-11] MEDS ORDERED: ONDA4TAB11 SL (13:03)
== END 2020-06-11 13:06 | disposition home or self-care (01) ==
LOC: EDUNIT# 09:24 → ER 09:26
DX: K59.00 Constipation, unspecified (principal); R10.84 Generalized abdominal pain; R93.2 Abnormal findings on diagnostic imaging of liver and biliary tract; E03.9 Hypothyroidism, unspecified; J45.909 Unspecified asthma, uncomplicated; Z88.5 Allergy status to narcotic agent; Z88.7 Allergy status to serum and vaccine; Z80.0 Family history of malignant neoplasm of digestive organs; Z79.890 Hormone replacement therapy
CPT/HCPCS: 36415; 74177; 80053; 81000; 83690; 83735; 84439; 84443; 85025; 86141

== ENCOUNTER → 2020-07-23 | Outpatient (CLI) | payer MEDICARE, OTHER ==
[~2020-07-23] MED LIST changes: +FAMO-119 PO; +ONDA4TAB11 SL; +POLY119P5 PO
--- NOTE | 2020-07-23 09:22 | Diagnostic Imaging Report ---
INDICATION: History of cerebral aneurysm. Strong pulsation in upper abdomen. PROCEDURE: Ultrasound abdomen complete. TECHNIQUE: Multiple real-time grayscale images were obtained of the abdomen in various projections. There are no prior ultrasound examinations available for comparison. The recent CT abdomen/pelvis exam of 06/11/2020 noted a moderate amount of fecal material within the colon consistent with constipation. There is no acute abnormality identified otherwise. On this study the liver does not appear enlarged and there is no focal mass involving the liver. The tiny area of low density within the liver seen on the CT exam cannot be identified with certainty on this study. Spectral and color-flow imaging of the portal vein shows the vein is patent. As noted on the CT exam the gallbladder is surgically absent. The common bile duct is at the upper limits of normal measuring 7 mm. There is no evidence for choledocholithiasis or pancreatic mass. The pancreas where visualized is generally unremarkable as is the spleen. There is atherosclerotic plaque involving the aorta but there is no evidence for an aneurysm. The inferior vena cava was unremarkable. There are cysts associated with both kidneys including 2 cysts arising from the right kidney. These measure 4.3 x 5.0 x 4.2 cm and 2.8 x 2.0 x 2.8 cm. There is also small subcentimeter cyst in the left kidney. The cysts have a generally benign appearance. There is no solid mass or free fluid identified. IMPRESSION: 1. There is no acute abnormality of the abdomen. In particular, there is no acute abnormality of the abdominal aorta. 2. The gallbladder is surgically absent and the common bile duct is at the upper limits of normal. 3. There are 2 prominent benign-appearing cysts arising from the right kidney. Dictated by: Dictated on workstation # [id number]
== END ==
LOC: RAD 08:00
PROVIDERS: ATTEND Internal Medicine
DX: N28.1 Cyst of kidney, acquired (principal); I67.1 Cerebral aneurysm, nonruptured; Z90.49 Acquired absence of other specified parts of digestive tract
CPT/HCPCS: 76700

== ENCOUNTER 2020-12-15 15:55 | Observation (INO) | payer MEDICARE, OTHER ==
[~2020-12-15] VITALS: Ht 157.5 cm; Wt 68.0 kg
--- NOTE | 2020-12-15 16:20 | ED Cardiac General ---
History of Present Illness General Chief Complaint: Chest Pain Stated Complaint: BLOOD WORK,CHEST AND NECK PAIN Source: patient Exam Limitations: no limitations (LEWIS ERIC APRN) History of Present Illness Date Seen by Provider: Dec 15, 2020 Time Seen by Provider: 16:00 Initial Comments To ER with reports of chest tightness and neck pain as well as acid reflux. This is intermittent over the course of the past 4 days. This seems to be brought on by activity. Typically she could do some laundry and make the bed and continue on about other daily activities. However things as simple as laundry and bed making exhausts her for the rest of the day. Looking back she also believes that she had some exertional fatigue and chest discomfort over the course of this past summer that she just attributed to heat exhaustion. She is a non-smoker. She is not diabetic and is not known to have high lipids. She was recently started on medication for hypertension. Timing/Duration: changing over time Severity: moderate Prior CP/Workup: no prior chest pain [facility] NURSING DIRECTOR: No Associated Systoms: Denies Symptoms (LEWIS ERIC APRN) Allergies and Home Medications Allergies Coded Allergies: Tetanus Vaccines and Toxoid (Unverified Allergy, Unknown, SWELLING, 12/21/17) codeine (Unverified Allergy, Unknown, MAKES HER HYPER, 12/21/17) Patient Home Medication List Home Medication List Reviewed: Yes (LEWIS ERIC APRN) Ascorbic Acid (Vitamin C) 1,000 Mg Tablet, 1,000 MG PO DAILY, (Reported) Entered as Reported by: NED LIN on 12/15/201642 Last Action: Reviewed Levocetirizine Dihydrochloride (Levocetirizine Dihydrochloride) 5 Mg Tablet, 5 MG PO HS, (Reported) Entered as Reported by: MALI SALVADOR on 01/26/20 143 Last Action: Reviewed Montelukast Sodium (Montelukast Sodium) 10 Mg Tablet, 10 MG PO HS, (Reported) Entered as Reported by: MALI SALVADOR on 01/26/201433 Last Action: Continued Multivitamin with Minerals (Multiple Vitamin) 1 Each Tablet, 1 EACH PO DAILY, (Reported) Entered as Reported by: NED LIN on 12/15/201642 Last Action: Reviewed Mv-Mn/Iron/FA/Herbal Cmplx#190 (Vitamin D3 Complete Caplet) 1 Each Tablet, 1 EACH PO DAILY, (Reported) Entered as Reported by: NED LIN on 12/15/201642 Last Action: Reviewed Olmesartan Medoxomil (Olmesartan Medoxomil) 20 Mg Tablet, 20 MG PO DAILY, (Reported) Entered as Reported by: NED LIN on 12/15/201642 Last Action: Reviewed Oxybutynin Chloride (Oxybutynin Chloride ER) 10 Mg Tab.er.24, 10 MG PO HS, (Reported) Entered as Reported by: ROLLY YANG on 12/15/202200 Last Action: Converted Zinc Gluconate (Zinc) 50 Mg Tablet, 50 MG PO DAILY, (Reported) Entered as Reported by: NED LIN on 12/15/201642 Last Action: Reviewed Discontinued Medications Calcium/Magnesium/Zinc (Gonoihp-Zeurbvwwa-Pjhh Tablet) 1 Each Tablet, 1 EACH PO DAILY, (Reported) Discontinued Reason: No Longer Taking Entered as Reported by: NED LIN on 12/15/201642 Last Action: Discontinued Famotidine (Pepcid) 20 Mg Tablet, 20 MG PO BID Discontinued Reason: No Longer Taking Prescribed by: ALYSSIA MORENO on 06/11/20 1257 Last Action: Discontinued Fluticasone/Salmeterol (Advair 250-50 Diskus) 1 Each Blst.w.dev, 1 EACH IH BID, (Reported) Discontinued Reason: No Longer Taking Entered as Reported by: MALI SALVADOR on 01/26/20 1434 Last Action: Discontinued Levothyroxine Sodium (Levothyroxine Sodium) 125 Mcg Tablet, 125 MCG PO Q48H, (Reported) Discontinued Reason: No Longer Taking Entered as Reported by: MALI SALVADOR on 01/26/20 1432 Last Action: Discontinued Levothyroxine Sodium (Levothyroxine Sodium) 137 Mcg Tablet, 137 MCG PO Q48H, (Reported) Discontinued Reason: No Longer Taking Entered as Reported by: MALI SALVADOR on 01/26/20 1432 Last Action: Discontinued Meloxicam (Mobic) 15 Mg Tablet, 15 MG PO DAILY, (Reported) Discontinued Reason: No Longer Taking Entered as Reported by: NED LIN on 10/20/21 1643 Last Action: Discontinued Ondansetron (Ondansetron Odt) 4 Mg Tab.rapdis, 4 MG SL Q4H PRN for NAUSEA/VOMITING Discontinued Reason: No Longer Taking Prescribed by: ALYSSIA MORENO on 06/11/20 1303 Last Action: Discontinued Polyethylene Glycol 3350 (Miralax) 119 Gm Powder, 17 GM PO TID PRN for CONSTIPATION-1ST LINE Discontinued Reason: No Longer Taking Prescribed by: ALYSSIA MORENO on 06/11/20 1257 Last Action: Discontinued Review of Systems Review of Systems Constitutional: see HPI EENTM: No Symptoms Reported Respiratory: No Symptoms Reported Cardiovascular: No Symptoms Reported Gastrointestinal: See HPI Genitourinary: No Symptoms Reported Musculoskeletal: no symptoms reported Skin: no symptoms reported Psychiatric/Neurological: No Symptoms Reported Endocrine: No Symptoms Reported Hematologic/Lymphatic: No Symptoms Reported (LEWIS ERIC APRN) Past Qmdalan-Vapfal-Smhowg Hx Seasonal Allergies Seasonal Allergies: Yes (LEWIS ERIC APRN) Past Medical History Surgeries: Yes Bladder Surgery, Gallbladder Respiratory: Yes Asthma Cardiac: No Neurological: No Reproductive Disorders: No Genitourinary: Yes (Bladder sling) Gastrointestinal: Yes Polyps Musculoskeletal: No Endocrine: Yes Hypothyroidsim HEENT: No Cancer: No Psychosocial: No Integumentary: No (LEWIS ERIC APRN) Family Medical History Cancer (LEWIS ERIC APRN) Physical Exam Vital Signs Vital Signs - First Documented 12/15/20 12/15/20 16:25 16:33 Temp 36.5 Pulse 64 Resp 18 B/P (MAP) 197/102 (133) Pulse Ox 97 O2 Delivery Room Air O2 Flow Rate 2.00 (ALYSSIA ADAMS MD) Vital Signs Capillary Refill : (LEWIS ERIC APRN) Height, Weight, BMI Height: 5'2.00" Weight: 142lbs. 0.0oz. 64.767208ow; 27.00 BMI Method: General Appearance: No Apparent Distress, WD/WN Respiratory: No Accessory Muscle Use, No Respiratory Distress Cardiovascular: Regular Rate, Rhythm, Normal Peripheral Pulses Gastrointestinal: Normal Bowel Sounds, Non Tender, Soft Neurologic/Psychiatric: Alert, Oriented x3 Skin: Normal Color, Warm/Dry (ERIC,PETER J ELECTROTYPER HELPER) Progress/Results/Core Measures Results/Orders Lab Results Laboratory Tests Test 12/15/20 16:10 Range/Units White Blood Count 7.6 4.3-11.0 10^3/uL Red Blood Count 5.25 H 3.80-5.11 10^6/uL Hemoglobin 14.2 11.5-16.0 g/dL Hematocrit 45 35-52 % Mean Corpuscular Volume 85 80-99 fL Mean Corpuscular Hemoglobin 27 25-34 pg Mean Corpuscular Hemoglobin Concent 32 32-36 g/dL Red Cell Distribution Width 13.1 10.0-14.5 % Platelet Count 291 130-400 10^3/uL Mean Platelet Volume 10.2 9.0-12.2 fL Immature Granulocyte % (Auto) 0 % Neutrophils (%) (Auto) 53 42-75 % Lymphocytes (%) (Auto) 32 12-44 % Monocytes (%) (Auto) 10 0-12 % Eosinophils (%) (Auto) 3 0-10 % Basophils (%) (Auto) 1 0-10 % Neutrophils # (Auto) 4.0 1.8-7.8 10^3/uL Lymphocytes # (Auto) 2.5 1.0-4.0 10^3/uL Monocytes # (Auto) 0.8 0.0-1.0 10^3/uL Eosinophils # (Auto) 0.2 0.0-0.3 10^3/uL Basophils # (Auto) 0.1 0.0-0.1 10^3/uL Immature Granulocyte # (Auto) 0.0 0.0-0.1 10^3/uL Prothrombin Time 13.6 12.2-14.7 SEC INR Comment 1.0 0.8-1.4 Activated Partial Thromboplast Time 33 24-35 SEC Sodium Level 141 135-145 MMOL/L Potassium Level 3.9 3.6-5.0 MMOL/L Chloride Level 101 98-107 MMOL/L Carbon Dioxide Level 27 21-32 MMOL/L Anion Gap 13 5-14 MMOL/L Blood Urea Nitrogen 19 H 7-18 MG/DL Creatinine 0.95 0.60-1.30 MG/DL Estimat Glomerular Filtration Rate 57 BUN/Creatinine Ratio 20 Glucose Level 103 70-105 MG/DL Calcium Level 12.0 H 8.5-10.1 MG/DL Corrected Calcium 11.6 H 8.5-10.1 MG/DL Magnesium Level 2.0 1.6-2.4 MG/DL Total Bilirubin 0.5 0.1-1.0 MG/DL Aspartate Amino Transf (AST/SGOT) 19 5-34 U/L Alanine Aminotransferase (ALT/SGPT) 21 0-55 U/L Alkaline Phosphatase 89 40-136 U/L Myoglobin 40.4 10.0-92.0 NG/ML Troponin I < 0.028 <0.028 NG/ML B-Type Natriuretic Peptide 10.2 <100.0 PG/ML Total Protein 7.6 6.4-8.2 GM/DL Albumin 4.5 3.2-4.5 GM/DL (ALYSSIA ADAMS MD) Vital Signs/I&O 12/15/20 12/15/20 12/15/20 16:25 16:33 17:00 Temp 36.5 Pulse 64 76 Resp 18 18 B/P (MAP) 197/102 (133) 169/90 Pulse Ox 97 98 94 O2 Delivery Room Air Nasal Cannula Room Air O2 Flow Rate 2.00 (ALYSSIA ADAMS MD) Departure Communication (Admissions) 0392-EKG shows sinus rhythm without ectopy no ST segment change. Troponin is negative though her symptoms are convincing of coronary disease. Will admit to [facility] serial troponins consult [facility]. She is hypertensive at 181/94 with a heart rate of about 67. For this reason I will avoid beta-blockers. She is already on olmesartan and so I will add a calcium channel yasemin to this as well. (LEWIS ERIC APRN) Impression Primary Impression: Chest pain on exertion Disposition: ADMITTED INPATIENT Condition: Stable Admissions Decision to Admit Reason: Admit from ER (General) Decision to Admit/Date: Dec 15, 2020 Time/Decision to Admit Time: 17:46 (LEWIS ERIC APRN) Departure-Patient Inst. Referrals: TOMMIE FARIAS DO (PCP/Family) Primary Care Physician ATTENDING PHYSICIAN NOTE: I was physically present as attending physician in the emergency department during the care of this patient, but I was not directly involved in the decision making or delivery of care for this patient. (ALYSSIA ADAMS MD) LEWIS ERIC APRN Dec 15, 2020 16:20 ALYSSIA ADAMS MD Dec 16, 2020 06:15
[2020-12-15] MEDS ORDERED: NITROGLYCERIN 0.4 MG SL TABS BTL 25'S SL ONE (16:21)
[2020-12-15] MEDS: NITROGLYCERIN 0.4 MG SL TABS BTL 25'S SL PRN ×2 (16:23→16:34)
[2020-12-15 16:41] LABS: BASOPHILS # (AUTO) 0.1 10^3/uL (0.0-0.1); BASOPHILS % (AUTO) 1 % (0-10); EOSINOPHILS # (AUTO) 0.2 10^3/uL (0.0-0.3); EOSINOPHILS % (AUTO) 3 % (0-10); HEMATOCRIT 45 % (35-52); HEMOGLOBIN 14.2 g/dL (11.5-16.0); LYMPHOCYTES # (AUTO) 2.5 10^3/uL (1.0-4.0); LYMPHOCYTES % (AUTO) 32 % (12-44); MEAN CORPUSCULAR HEMOGLOBIN 27 pg (25-34); MEAN CORPUSCULAR HGB CONC 32 g/dL (32-36); MEAN CORPUSCULAR VOLUME 85 fL (80-99); MEAN PLATELET VOLUME 10.2 fL (9.0-12.2); MONOCYTES # (AUTO) 0.8 10^3/uL (0.0-1.0); MONOCYTES % (AUTO) 10 % (0-12); NEUTROPHILS % (AUTO) 53 % (42-75); PLATELET COUNT 291 10^3/uL (130-400); WHITE BLOOD COUNT 7.6 10^3/uL (4.3-11.0)
[2020-12-15] MEDS ORDERED: ZINC50TA11 PO (16:43)
[2020-12-15] MEDS ORDERED: MELO15TA14 PO (16:43)
[2020-12-15] MEDS ORDERED: ASCO100024 PO (16:43)
[2020-12-15] MEDS ORDERED: MULT-593 PO (16:43)
[2020-12-15] MEDS ORDERED: CALC-64 PO (16:43)
[2020-12-15] MEDS ORDERED: MV-M1TAB20 PO (16:43)
[2020-12-15] MEDS ORDERED: OLME20TA24 PO (16:43)
[2020-12-15 16:52] LABS: PROTHROMBIN TIME PATIENT 13.6 SEC (12.2-14.7)
--- NOTE | 2020-12-15 16:55 | Diagnostic Imaging Report ---
EXAMINATION: Chest radiograph, portable AP view. DATE: 12/15/2020 4:45 PM. INDICATION: 75-year-old female, chest pain. COMPARISON: CT chest May 11, 2020. FINDINGS: The heart size and mediastinal contours are unremarkable. There is no identified pneumothorax. There is no large pleural effusion. There is no identified focal airspace consolidation. IMPRESSION: No identified acute cardiopulmonary abnormality. Dictated by: Dictated on workstation # [id number]
[2020-12-15 16:59] LABS: ALBUMIN 4.5 GM/DL (3.2-4.5)
[2020-12-15 17:00] LABS: POTASSIUM 3.9 MMOL/L (3.6-5.0)
[2020-12-15 17:02] LABS: TOTAL PROTEIN 7.6 GM/DL (6.4-8.2)
[2020-12-15 17:04] LABS: BILIRUBIN,TOTAL 0.5 MG/DL (0.1-1.0)
[2020-12-15 17:06] LABS: CREATININE SERUM 0.95 MG/DL (0.60-1.30)
[2020-12-15] MEDS ORDERED: amLODIPine 5 MG (NORVASC) TAB PO ONE (18:00)
[2020-12-15] MEDS ORDERED: CATHETER FLUSH 10 ML SYR IV PRN (19:00)
[2020-12-15] MEDS ORDERED: DOCUSATE SODIUM 100 MG (COLACE) CAP PO PRN (20:00)
[2020-12-15] MEDS ORDERED: diphenhydrAMINE 25 MG TAB (BENADRYL) PO PRN (20:00)
[2020-12-15] MEDS ORDERED: CALCIUM CARBONATE 500 MG (TUMS) TAB.CHEW PO PRN (20:00)
[2020-12-15] MEDS ORDERED: HYDROcodone/APAP 5 MG/325 MG (LORTAB) TAB PO PRN (20:00)
[2020-12-15] MEDS ORDERED: cloNIDine 0.1 MG (CATAPRES) TAB PO PRN (20:00)
[2020-12-15] MEDS ORDERED: ONDANSETRON 4 MG/2 ML (SDV) Z0FRAN IVP PRN (20:00)
[2020-12-15] MEDS ORDERED: MELATONIN 3 MG TABLET PO PRN (20:00)
[2020-12-15] MEDS ORDERED: ALPRAZolam 0.25 MG (XANAX) TAB PO PRN (20:00)
[2020-12-15] MEDS ORDERED: LOPERAMIDE 2 MG (IMODIUM) TABLET PO PRN (20:00)
[2020-12-15] MEDS ORDERED: ACETAMINOPHEN 500 MG TAB (TYLENOL) PO PRN (20:00)
[2020-12-15 20:03] VITALS: BP 160/81
[2020-12-15] MEDS: SENNA W/DOCUSATE (SENOKOT S) TABLET PO SCH (20:42)
[2020-12-15] MEDS: polyethylene glycoL POWDER 17 GM (MIRALAX) PACK PO SCH (20:42)
[2020-12-15] MEDS ORDERED: OXYB10TA29 PO (22:01)
[2020-12-15] MEDS ORDERED: LEVOTHYROXINE 125 MCG (LEVOTHROID) TABLET PO SCH (22:15)
[2020-12-15] MEDS ORDERED: MONTELUKAST 10 MG (SINGULAIR) TAB PO SCH (22:18)
[2020-12-15] MEDS: CATHETER FLUSH 10 ML SYR IV SCH (22:42)
[2020-12-15] MEDS: OXYBUTYNIN (DITROPAN) 5 MG TAB PO SCH (22:42)
[2020-12-15 23:50] VITALS: BP 107/59
[2020-12-16 04:40] VITALS: BP 105/56
[2020-12-16 05:50] LABS: BASOPHILS # (AUTO) 0.1 10^3/uL (0.0-0.1); BASOPHILS % (AUTO) 2 % (0-10); EOSINOPHILS # (AUTO) 0.3 10^3/uL (0.0-0.3); EOSINOPHILS % (AUTO) 6 % (0-10); HEMATOCRIT 41 % (35-52); LYMPHOCYTES # (AUTO) 1.4 10^3/uL (1.0-4.0); LYMPHOCYTES % (AUTO) 27 % (12-44); MEAN CORPUSCULAR HEMOGLOBIN 27 pg (25-34); MEAN CORPUSCULAR HGB CONC 32 g/dL (32-36); MEAN CORPUSCULAR VOLUME 86 fL (80-99); MEAN PLATELET VOLUME 10.1 fL (9.0-12.2); MONOCYTES # (AUTO) 0.6 10^3/uL (0.0-1.0); MONOCYTES % (AUTO) 11 % (0-12); NEUTROPHILS # (AUTO) 2.8 10^3/uL (1.8-7.8); NEUTROPHILS % (AUTO) 53 % (42-75); PLATELET COUNT 240 10^3/uL (130-400); WHITE BLOOD COUNT 5.2 10^3/uL (4.3-11.0)
[2020-12-16] MEDS ORDERED: LEVOTHYROXINE 125 MCG (LEVOTHROID) TABLET PO SCH ×2 (06:00→07:00)
[2020-12-16 06:16] LABS: CHLORIDE 107 MMOL/L (98-107); POTASSIUM 4.4 MMOL/L (3.6-5.0); SODIUM 141 MMOL/L (135-145)
[2020-12-16 06:17] LABS: ALBUMIN 3.9 GM/DL (3.2-4.5)
[2020-12-16 06:18] LABS: TRIGLYCERIDES 77 MG/DL (<150); VLDL CHOLESTEROL 15 MG/DL (5-40)
[2020-12-16 06:19] LABS: GLUCOSE 99 MG/DL (70-105); TOTAL PROTEIN 6.5 GM/DL (6.4-8.2)
[2020-12-16 06:20] LABS: CARBON DIOXIDE 23 MMOL/L (21-32)
[2020-12-16 06:21] LABS: BILIRUBIN,TOTAL 0.5 MG/DL (0.1-1.0)
[2020-12-16 06:23] LABS: ALKALINE PHOSPHATASE 80 U/L (40-136); CHOLESTEROL 191 MG/DL (< 200); CREATININE SERUM 0.83 MG/DL (0.60-1.30); GFR ESTIMATED 67
[2020-12-16 06:24] LABS: BILIRUBIN,DIRECT 0.2 MG/DL (0.0-0.3); BILIRUBIN,INDIRECT 0.3 MG/DL; BUN/CREATININE RATIO 28
[2020-12-16 06:25] LABS: HDL CHOLESTEROL 51 MG/DL (40-60)
[2020-12-16 06:26] LABS: ALANINE AMINOTRANSFERASE 19 U/L (0-55)
[2020-12-16] MEDS: CATHETER FLUSH 10 ML SYR IV SCH ×2 (06:47→15:19)
[2020-12-16 07:43] VITALS: BP 110/65
[2020-12-16] MEDS ORDERED: NS IV 1000 ML 1,000 ML IV SCH ×2 (08:30→12:45)
[2020-12-16] MEDS ORDERED: LACTATED RINGERS 1,000 ML IV SCH (08:30)
[2020-12-16] MEDS ORDERED: ACETAMINOPHEN 325 MG TABLET ONE (08:30)
[2020-12-16] MEDS ORDERED: HEParin (CATH LAB) 2,000 ML IV ONE (08:39)
[2020-12-16] MEDS ORDERED: LIDOCAINE 1% INJ 20 ML 20 ML VIAL ONE (08:39)
[2020-12-16] MEDS ORDERED: NS IV 1000 ML 1,000 ML ONE (08:39)
[2020-12-16] MEDS ORDERED: ACETAMINOPHEN 325 MG TABLET PO PRN (08:45)
--- NOTE | 2020-12-16 08:51 | Consultation-Cardiology ---
HPI-Cardiology Cardiology Consultation Date of Consultation 12/16/20 Date of Admission Time Seen by Provider: 08:00 Indication: Chest pain HPI Patient is a 75 y/o female, hx of HTN, fam hx CAD, presented to the ER with c/o intermittent chest pain and acid relux over the past 4 days. Reports chest pain and tightness with activities such as laundry and other housework. Associated dyspnea. Denies any dizziness, nausea or jaw pain. 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 Smoking Status: Never a Smoker Have you traveled recently?: No Alcohol Use?: Yes Immunizations Up To Date Date of Pneumonia Vaccine: Jan 14, 2011 Past Medical History HTN Family Medical History Significant Family History: Cancer, CAD Under 55 Years Old Review of Systems-General Review of Systems Constitutional: see HPI; No chills, No diaphoresis; malaise EENTM: see HPI, no symptoms reported; No blurred vision, No double vision Respiratory: see HPI; No cough; dyspnea on exertion Cardiovascular: see HPI, chest pain; No Hx of Intervention, No palpitations, No syncope, No vascular heart diseas Musculoskeletal: no symptoms reported Skin: no symptoms reported Psychiatric/Neurological: No Symptoms Reported Reviewed Test Results Reviewed Test Results Lab Laboratory Tests 12/15/20 16:10: White Blood Count 7.6, Red Blood Count 5.25H, Hemoglobin 14.2, Hematocrit 45, Mean Corpuscular Volume 85, Mean Corpuscular Hemoglobin 27, Mean Corpuscular Hemoglobin Concent 32, Red Cell Distribution Width 13.1, Platelet Count 291, Mean Platelet Volume 10.2, Immature Granulocyte % (Auto) 0, Neutrophils (%) (Auto) 53, Lymphocytes (%) (Auto) 32, Monocytes (%) (Auto) 10, Eosinophils (%) (Auto) 3, Basophils (%) (Auto) 1, Neutrophils # (Auto) 4.0, Lymphocytes # (Auto) 2.5, Monocytes # (Auto) 0.8, Eosinophils # (Auto) 0.2, Basophils # (Auto) 0.1, Immature Granulocyte # (Auto) 0.0, Prothrombin Time 13.6, INR Comment 1.0, Activated Partial Thromboplast Time 33, Sodium Level 141, Potassium Level 3.9, Chloride Level 101, Carbon Dioxide Level 27, Anion Gap 13, Blood Urea Nitrogen 19H, Creatinine 0.95, Estimat Glomerular Filtration Rate 57, BUN/Creatinine Ratio 20, Glucose Level 103, Calcium Level 12.0H, Corrected Calcium 11.6H, Magnesium Level 2.0, Total Bilirubin 0.5, Aspartate Amino Transf (AST/SGOT) 19, Alanine Aminotransferase (ALT/SGPT) 21, Alkaline Phosphatase 89, Myoglobin 40.4, Troponin I < 0.028, B-Type Natriuretic Peptide 10.2, Total Protein 7.6, Albumin 4.5 12/15/20 21:47: Troponin I < 0.028 12/16/20 05:20: White Blood Count 5.2, Red Blood Count 4.83, Hemoglobin 13.0, Hematocrit 41, Mean Corpuscular Volume 86, Mean Corpuscular Hemoglobin 27, Mean Corpuscular Hemoglobin Concent 32, Red Cell Distribution Width 13.1, Platelet Count 240, Mean Platelet Volume 10.1, Immature Granulocyte % (Auto) 0, Neutrophils (%) (Auto) 53, Lymphocytes (%) (Auto) 27, Monocytes (%) (Auto) 11, Eosinophils (%) (Auto) 6, Basophils (%) (Auto) 2, Neutrophils # (Auto) 2.8, Lymphocytes # (Auto) 1.4, Monocytes # (Auto) 0.6, Eosinophils # (Auto) 0.3, Basophils # (Auto) 0.1, Immature Granulocyte # (Auto) 0.0, Sodium Level 141, Potassium Level 4.4, Chloride Level 107, Carbon Dioxide Level 23, Anion Gap 11, Blood Urea Nitrogen 23H, Creatinine 0.83, Estimat Glomerular Filtration Rate 67, BUN/Creatinine Ratio 28, Glucose Level 99, Calcium Level 10.0, Total Bilirubin 0.5, Aspartate Amino Transf (AST/SGOT) 16, Alanine Aminotransferase (ALT/SGPT) 19, Alkaline Phosphatase 80, Troponin I < 0.028, Total Protein 6.5, Albumin 3.9, Direct Bilirubin 0.2, Indirect Bilirubin 0.3, Triglycerides Level 77, Cholesterol Level 191, LDL Cholesterol Direct 130H, VLDL Cholesterol 15, HDL Cholesterol 51, Thyroid Stimulating Hormone (TSH) 1.78 ECG Impression ECG Initial ECG Rhythm: Normal Sinus Physical Exam Physical Exam Vital Signs Vital Signs - First Documented 12/15/20 12/15/20 16:25 16:33 Temp 36.5 Pulse 64 Resp 18 B/P (MAP) 197/102 (133) Pulse Ox 97 O2 Delivery Room Air O2 Flow Rate 2.00 Capillary Refill : Less Than 3 Seconds Height, Weight, BMI Height: 5'2.00" Weight: 142lbs. 0.0oz. 64.638532wb; 27.29 BMI Method: General Appearance: No Apparent Distress, WD/WN Respiratory: No Accessory Muscle Use, No Respiratory Distress Cardiovascular: Regular Rate, Rhythm, Normal Peripheral Pulses Gastrointestinal: Normal Bowel Sounds, Non Tender, Soft Neurologic/Psychiatric: Alert, Oriented x3 Skin: Normal Color, Warm/Dry A/P-Cardiology Admission Diagnosis Unstable angina HTN Fam hx CAD Assessment/Plan Chest pain, resembling unstable angina, reports increasing episodes of chest marisol n with exertion, increasing over the past 4 days. Associated dyspnea on exertion and fatigue. CP relieved by nitro. Planning for LHC at noon for further evaluation. HTN, better controlled, continue to monitor. Questionable HLP, I will evaluate lipid profile. Strong family hx CAD Thank you for allowing us to participate in the management of Mrs. Peralta. This is Allison Farah PA-C, as a scribe for Dr. Rowley. Patient was seen and evaluated with Allison, I interviewed the patient and performed physical examination, patient has been having unstable angina/accelerating angina, discussed the management plan recommended cardiac catheterization possible PTCA. Cardiac catheterization was carried out on December 16, 2020 which showed hypertensive heart disease tortuous artery with nonobstructive disease Echo reviewed showing mild LVH with normal ejection fraction, mildly elevated PA pressure I will start low-dose beta-blockers and evaluate tolerance and response We will consider the use of long-acting nitroglycerin if she continues to have chest pain Okay for discharge and follow-up as an outpatient Clinical Quality Measures AMI/AHF: ASA po Prior to arrival: Yes (324mg at urgent care) ALLISON YEUNG Dec 16, 2020 08:51 DANILO ROWLEY MD Dec 16, 2020 12:36
[2020-12-16] MEDS ORDERED: ASPIRIN E.C. 81 MG (ECOTRIN) TAB PO SCH (09:00)
[2020-12-16] MEDS: polyethylene glycoL POWDER 17 GM (MIRALAX) PACK PO SCH (09:00)
[2020-12-16] MEDS: SENNA W/DOCUSATE (SENOKOT S) TABLET PO SCH (09:00)
[2020-12-16] MEDS ORDERED: amLODIPine 5 MG (NORVASC) TAB PO SCH (09:00)
[2020-12-16] MEDS: OXYBUTYNIN (DITROPAN) 5 MG TAB PO SCH (09:00)
[2020-12-16] MEDS ORDERED: fentaNYL INJ 100 MCG/2 ML AMP ONE (11:26)
[2020-12-16] MEDS ORDERED: MIDAZOLAM 5 MG/5 ML (VERSED) VIAL ONE (11:27)
[2020-12-16 11:43] VITALS: BP 131/72
[2020-12-16] MEDS ORDERED: CHOL10007 PO (11:47)
[2020-12-16] MEDS ORDERED: CARB15DR OU (11:47)
[2020-12-16] MEDS ORDERED: CALC-778 PO (11:47)
[2020-12-16] MEDS ORDERED: LEVO125T6 PO (11:47)
[2020-12-16] MEDS ORDERED: CETI10TA17 PO (11:48)
[2020-12-16] MEDS ORDERED: HEParin (CATH LAB) 1,000 ML IV ONE (12:08)
--- NOTE | 2020-12-16 12:34 | Conscious Sedation/ASA ---
Conscious Sedation Pre-Proced Time 08:00 ASA Score 3 For ASA 3 and 4: Consider anesthesia and medical clearance. Also, for patients with a history of failed moderate sedation consider anesthesia. Airway Lungs Heart ASA score ASA 1: a normal healthy patient ASA 2: a patient with a mild systemic disease (mid diabetes, controlled hypertension, obesity x ASA 3: a patient with a severe systemic disease that limits activity (angina, COPD, prior Myocardial infarction) ASA 4: a patient with an incapacitating disease that is a constant threat to life (CHF, renal failure) ASA 5: a moribund patient not expected to survive 24 hrs. (ruptured aneurysm) ASA 6: a declared brain- patient whose organs are being harvested. For emergent operations, add the letter E after the classification Mallampati Classification Grade 3 Sedation Plan Analgesia, Amnesia, Plan communicated to team members, Discussed options with patient/fam, Discussed risks with patient/fam The patient is an appropriate candidate to undergo the planned procedure, sedation, and anesthesia. The patient immediately re-assessed prior to indication. DANILO SWEENEY MD Dec 16, 2020 12:34
[2020-12-16] MEDS ORDERED: ASPI-1238 PO (12:40)
[2020-12-16] MEDS ORDERED: METO-351 PO (12:40)
--- NOTE | 2020-12-16 12:41 | Discharge Inst-Post CATH ---
Discharge Inst-CATH/EP Problems Reviewed?: Yes Post Cardiac Cath/EP D/C Inst Follow Up/Plan Appointment with Dr. Rowley's office in 2 weeks <b>CARDIAC CATH/EP PROCEDURE DISCHARGE INSTRUCTIONS</b> ACTIVITY * Go Home directly and rest. * Limit activity of the leg (or wrist if it was used) for 7 days including aerobics, swimming, jogging, bicycling, etc. * Restrict stair-climbing for 7 days if possible, if not, climb up with your non-cath leg, then bring together on the same step. * Avoid lifting, pushing, pulling or excessive movement of the affected extremity for 7 days. * Customary sexual activity may be resumed after 2 days-use caution not to use a position that strains or causes pain to the affected extremity. * No driving for 24 hours. * NO SMOKING. * Avoid straining for bowel movements for 7 days. * Gentle walking on level ground is allowed. * Returning to work will depend on the type of procedure and the results. Your doctor will discuss this with you. CALL YOUR DOCTOR FOR ANY OF THE FOLLOWING: *If bleeding from the puncture site occurs- Apply gentle pressure to site with clean cloth and call your doctor or EMS. * If a knot or lump forms under the skin, increases in size, or causes pain. * If bruising appears to be worsening or moving further down your leg instead of disappearing. * Temperature above 101 F. CARE OF YOUR GROIN INCISION; * Bruising or purple discoloration of the skin near the puncture site is common. * You may shower only, no bathtub bathing for 5 days. Be careful to avoid slipping as your leg may feel stiff. * If a closure device was used on your femoral artery, please see the attached guide regarding care of the device and your leg. * Leave dressing on FOR 24 hours. CARE OF YOUR WRIST INCISION; * Bruising or purple discoloration of the skin near the puncture site is common. * You may shower. * DO NOT submerge wrist. * Leave dressing on FOR 24 hours. DANILO ROWLEY MD Dec 16, 2020 12:41
--- NOTE | 2020-12-16 12:44 | Cardiac Cath Report ---
Cardiac Cath Report Physician (s)/Local Combination Truck Driver (s) Physician DANILO SWEENEY MD Pre-Procedure Diagnosis Pre-Procedure Diagnosis: Unstable angina Post-Procedure Note Procedure Start Date: Dec 16, 2020 Name of Procedure: Left heart catheterization Aortic arch angiogram Findings/Procedure Note PROCEDURE NOTE: 75-year-old lady with history of hypertension, hyperlipidemia, hypothyroidism, admitted with chest pain resembling angina, scheduled for cardiac cath eterization possible PTCA. After explaining the procedure to the patient, all pros and cons were explained, all questions were answered. The patient signed the consent and then she was placed on the cardiac catheterization laboratory. Groin was prepped SL fashion local anesthesia was used. Sheath placed in the right femoral artery. Amanda right and left catheter were used to access the coronary system. Pigtail was used to access the left ventricular cavity. Left ventriculogram was not done, pressure was measured Aortic arch angiogram was done to evaluate for any source of chest pain especially with her upper back pain radiating to both arms At the end of the procedure the sheath was removed. Closure device was deployed FINDINGS: Hemodynamics LV 115/10, end-diastolic pressure of 10 Aorta 122/54 mean of 79 ANATOMY: Left Main is free of obstructive disease Left Anterior Descending is tortuous artery with mild disease nonobstructive disease Left Circumflex is slightly tortuous with mild disease nonobstructive disease Right Coronary Artery is dominant artery with slow flow due to small vessel disease LV Gram was not done, pressure was measured Aorta evaluation done with aortic arch angiogram showing normal aortic arch in size, no dissection or aneurysm, slightly tortuous right brachiocephalic artery with no obstructive disease, the left carotid artery has no obstructive disease, the left subclavian artery has no obstructive disease. CONCLUSION: 1. Tortuous coronary system with mild disease nonobstructive disease, slow flow in the distal right coronary artery due to small vessel disease. 2. Normal left ventricular end-diastolic pressure 3. Normal aortic arch and great vessels of the neck DISCUSSION AND RECOMMENDATION: Medical therapy is recommended, recommended starting beta-blockers, will consider using long-acting nitroglycerin if needed Anesthesia Type: Conscious Sedation Estimated blood loss (mL): 20 ml Contrast Amount: 50 ml Total Radiation Dose: 242 mGy Post-Procedure Diagnosis Post-operative diagnosis: Chest pain Hypertension Coronary artery disease Hypothyroidism DANILO SWEENEY MD Dec 16, 2020 12:44
[2020-12-16] MEDS ORDERED: PATIENT MAY USE OWN MEDS, ALL PO SCH (12:45)
[2020-12-16] MEDS ORDERED: NITROGLYCERIN 0.4 MG SL TABS BTL 25'S SL PRN (13:00)
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
--- NOTE | 2020-12-16 16:53 | Diagnostic Imaging Report ---
EXAMINATION: US Abdomen limited. TECHNIQUE: Multiple real-time grayscale images were obtained over the right upper quadrant in various projections. HISTORY: Right upper quadrant pain. COMPARISON: Ultrasound from 07/23/2020. FINDINGS: Pancreas: The visualized portions of the pancreas are normal. Liver: The liver is normal in echogenicity and contour. No focal lesions are seen. The portal vein is patent with hepatopetal flow. Gallbladder and biliary tree: The gallbladder is surgically absent. There is no biliary ductal dilation. The common duct is obscured by overlying bowel gas. Right kidney: There are right renal cysts measuring up to 4.5 cm. No hydronephrosis. Aorta and IVC: The visualized aorta and inferior vena cava are normal. Fluid: No ascites is seen. IMPRESSION: 1. Unremarkable right upper quadrant ultrasound. Dictated by: Dictated on workstation # [id number]
[2020-12-16] MEDS ORDERED: MONTELUKAST 10 MG (SINGULAIR) TAB PO SCH (21:00)
== END 2020-12-16 17:58 | disposition home or self-care (01) ==
LOC: EDUNIT# 15:55 → ER 15:57 → 4TH 17:40 → ICU 12-16 12:41
PROVIDERS: ADMIT Internal Medicine; ATTEND Internal Medicine
DX: I25.110 Atherosclerotic heart disease of native coronary artery with unstable angina pectoris (principal); E03.9 Hypothyroidism, unspecified; I10 Essential (primary) hypertension; I25.10 Atherosclerotic heart disease of native coronary artery without angina pectoris; H53.8 Other visual disturbances; J45.909 Unspecified asthma, uncomplicated; Z79.890 Hormone replacement therapy; Z79.899 Other long term (current) drug therapy; Z80.9 Family history of malignant neoplasm, unspecified
CPT/HCPCS: 36221; 71045; 76705; 80048; 80053; 80061; 80076; 83735; 83874; 83880; 84443; 84484 ×2; 85025 ×2; 85610; 85730; 93005 ×2; 93041; 93306; 93458; 99284; C1760; C1894; G0378; 36415

== ENCOUNTER → 2021-05-12 | Outpatient (CLI) | payer MEDICARE, OTHER ==
[~2021-05-12] MED LIST changes: +ASCO100024 PO; +ASPI-1238 PO; +CALC-64 PO; +CALC-778 PO; +CARB15DR OU; +CETI10TA17 PO; +CHOL10007 PO; +MELO15TA14 PO; +METO-351 PO; +MONT-40 PO; -MONT10TA32 PO; +MULT-593 PO; +MV-M1TAB20 PO; +OLME20TA24 PO; +OXYB10TA29 PO; +ZINC50TA11 PO
--- NOTE | 2021-05-12 12:16 | Diagnostic Imaging Report ---
INDICATION: Routine screening. COMPARISON: 05/11/2020 and 03/05/2017. TECHNIQUE: 2D and 3D bilateral screening mammography was performed with CAD. FINDINGS: Both breasts are heterogeneously dense, limiting the sensitivity of mammography. Scattered benign calcifications throughout both breasts are again noted. The benign nodules in the outer left breast are stable. No new mass or malignant-appearing microcalcifications are seen. The axillae are unremarkable. IMPRESSION: No mammographic features suspicious for malignancy are identified. ACR BI-RADS Category 2: Benign findings. Result letter will be mailed to the patient. Note: At least 10% of breast cancer is not imaged by mammography. Dictated by: Dictated on workstation # [id number]
== END ==
LOC: RAD 08:00
PROVIDERS: ATTEND Internal Medicine
DX: Z12.31 Encounter for screening mammogram for malignant neoplasm of breast (principal)
CPT/HCPCS: 77063; 77067

== ENCOUNTER 2021-07-26 16:30 | Inpatient (IN) | payer MEDICARE, OTHER ==
[~2021-07-26] VITALS: Ht 157.5 cm; Wt 65.5 kg
[2021-07-26 16:40] VITALS: BP 133/84
[2021-07-26] MEDS ORDERED: morphine INJ 4 MG/ML 1 ML (VIAL/SYRINGE) ONE (18:08)
[2021-07-26] MEDS ORDERED: NS (IVPB) 100 ML ONE (18:08)
[2021-07-26] MEDS ORDERED: diphenhydrAMINE 50 MG/ML INJ (BENADRYL) IVP PRN (18:15)
[2021-07-26] MEDS ORDERED: ONDANSETRON 4 MG/2 ML (SDV) Z0FRAN IV PRN (18:15)
[2021-07-26] MEDS: morphine INJ 4 MG/ML 1 ML (VIAL/SYRINGE) IV PRN (18:21)
[2021-07-26] MEDS: NS IV 1000 ML 1,000 ML IV SCH (18:23)
[2021-07-26 18:43] LABS: BILIRUBIN,URINE NEGATIVE (NEGATIVE); CLARITY,URINE CLEAR; COLOR,URINE YELLOW; GLUCOSE, URINE (UA) NEGATIVE (NEGATIVE); KETONES,URINE TRACE (NEGATIVE); LEUKOCYTE ESTERASE ,URINE TRACE (NEGATIVE); NITRITE,URINE NEGATIVE (NEGATIVE); PH,URINE 5.5 (5-9); PROTEIN,URINE NEGATIVE (NEGATIVE)
--- NOTE | 2021-07-26 18:45 | Diagnostic Imaging Report ---
INDICATION: Abdominal pain. Time of Exam: 6:25 PM No free air seen. There are surgical clips in the right upper quadrant. Bowel gas pattern appears nonobstructed. No pathologic calcifications are seen. The lungs appear to be clear. There is no effusion. IMPRESSION: No acute feature detected. Dictated by: Dictated on workstation # [id number]
[2021-07-26 18:46] LABS: BASOPHILS # (AUTO) 0.1 10^3/uL (0.0-0.1); BASOPHILS % (AUTO) 1 % (0-10); EOSINOPHILS # (AUTO) 0.3 10^3/uL (0.0-0.3); EOSINOPHILS % (AUTO) 3 % (0-10); HEMATOCRIT 42 % (35-52); HEMOGLOBIN 13.3 g/dL (11.5-16.0); LYMPHOCYTES # (AUTO) 1.4 10^3/uL (1.0-4.0); LYMPHOCYTES % (AUTO) 16 % (12-44); MEAN CORPUSCULAR HEMOGLOBIN 27 pg (25-34); MEAN CORPUSCULAR HGB CONC 32 g/dL (32-36); MEAN CORPUSCULAR VOLUME 86 fL (80-99); MEAN PLATELET VOLUME 9.8 fL (9.0-12.2); MONOCYTES # (AUTO) 0.7 10^3/uL (0.0-1.0); MONOCYTES % (AUTO) 9 % (0-12); NEUTROPHILS % (AUTO) 71 % (42-75); PLATELET COUNT 259 10^3/uL (130-400); WHITE BLOOD COUNT 8.5 10^3/uL (4.3-11.0)
[2021-07-26 18:50] LABS: BACTERIA,URINE NEGATIVE /HPF; RBC,URINE 0-2 /HPF; SQUAMOUS EPITHELIAL CELL,UR 0-2 /HPF; WBC,URINE 0-2 /HPF
[2021-07-26 19:00] LABS: ALBUMIN 3.9 GM/DL (3.2-4.5); POTASSIUM 3.6 MMOL/L (3.6-5.0)
[2021-07-26 19:03] LABS: ERYTHROCYTE SEDIMENTATION RATE 24 MM/HR (0-30); TOTAL PROTEIN 6.7 GM/DL (6.4-8.2)
[2021-07-26 19:04] LABS: BILIRUBIN,TOTAL 0.6 MG/DL (0.1-1.0)
[2021-07-26 19:06] LABS: CREATININE SERUM 0.78 MG/DL (0.60-1.30)
[2021-07-26 19:32] VITALS: BP 166/78
[2021-07-26] MEDS ORDERED: amLODIPine 5 MG (NORVASC) TAB PO ONE (20:30)
[2021-07-26] MEDS ORDERED: amLODIPine 5 MG (NORVASC) TAB ONE (20:43)
[2021-07-26] MEDS ORDERED: RT-ALBUTEROL SULF 2.5 MG/3 ML PRE-MIX VIAL INH PRN (21:15)
[2021-07-26] MEDS ORDERED: LORATADINE (CLARITIN) 10 MG TAB PO PRN (22:30)
[2021-07-26] MEDS ORDERED: ARTIFICAL TEARS 0.4 ML UNIT DOSE (REFRESH PLUS) OU PRN (22:30)
[2021-07-26 23:03] VITALS: BP 130/59
[2021-07-26] MEDS: KETOROLAC 15 MG/ML VIAL IV SCH (23:21)
[2021-07-26] MEDS: LORATADINE (CLARITIN) 10 MG TAB PO SCH (23:22)
[2021-07-26] MEDS: MONTELUKAST 10 MG (SINGULAIR) TAB PO SCH (23:22)
[2021-07-27] MEDS: morphine INJ 4 MG/ML 1 ML (VIAL/SYRINGE) IV PRN (01:04)
[2021-07-27] MEDS: NS IV 1000 ML 1,000 ML IV SCH ×3 (02:56→18:52)
[2021-07-27 04:52] VITALS: BP 119/58
[2021-07-27 05:39] LABS: BASOPHILS # (AUTO) 0.1 10^3/uL (0.0-0.1); BASOPHILS % (AUTO) 1 % (0-10); EOSINOPHILS # (AUTO) 0.2 10^3/uL (0.0-0.3); EOSINOPHILS % (AUTO) 4 % (0-10); HEMATOCRIT 37 % (35-52); LYMPHOCYTES # (AUTO) 1.2 10^3/uL (1.0-4.0); LYMPHOCYTES % (AUTO) 24 % (12-44); MEAN CORPUSCULAR HEMOGLOBIN 28 pg (25-34); MEAN CORPUSCULAR HGB CONC 32 g/dL (32-36); MEAN CORPUSCULAR VOLUME 87 fL (80-99); MEAN PLATELET VOLUME 9.5 fL (9.0-12.2); MONOCYTES # (AUTO) 0.5 10^3/uL (0.0-1.0); MONOCYTES % (AUTO) 9 % (0-12); NEUTROPHILS # (AUTO) 3.1 10^3/uL (1.8-7.8); NEUTROPHILS % (AUTO) 62 % (42-75); PLATELET COUNT 192 10^3/uL (130-400)
[2021-07-27 05:46] LABS: ALBUMIN 3.1 GM/DL (3.2-4.5)
[2021-07-27 05:47] LABS: CALCIUM 8.3 MG/DL (8.5-10.1)
[2021-07-27 05:49] LABS: TOTAL PROTEIN 5.4 GM/DL (6.4-8.2)
[2021-07-27 05:50] LABS: BILIRUBIN,TOTAL 1.1 MG/DL (0.1-1.0)
[2021-07-27 05:52] LABS: CREATININE SERUM 0.69 MG/DL (0.60-1.30)
[2021-07-27] MEDS: LEVOTHYROXINE 125 MCG (LEVOTHROID) TABLET PO SCH (05:52)
[2021-07-27] MEDS: KETOROLAC 15 MG/ML VIAL IV SCH ×4 (05:52→23:13)
--- NOTE | 2021-07-27 06:32 | History & Physical ---
History of Present Illness HPI/Chief Complaint CC: Abdominal pain HPI: This is a 75 yr old female clinic pt of mine. She presented to my office with abdominal pain and was directly admitted to the hospital due to suspicion for obstruction. Diverticulitis or ileus after undergoing treatment for upper respiratory illness. Abdominal x-ray showed no acute abnormality. Labs remain stable. Today her liver enzymes were [address] scan showed constipation with colitis. Abdominal US ordered. We will give Mag Citrate. Restart clear liquids. I did change her to in-patient status due to elevated liver enzymes status and Dr. Fletcher was appreciated in his consultation expertise. Source: patient Exam Limitations: no limitations Date Seen 07/27/21 Time Seen by a Provider: 10:00 Attending Physician Bernadette Davila DO PCP Admitting Physician: Bernadette Davila DO Attending Physician: Bernadette Davila DO Referring Physician Date of Admission July 26, 2021 at 16:30 Home Medications & Allergies Home Medications Reviewed patient Home Medication Reconciliation performed by pharmacy medication reconciliations polysomnography technician and/or nursing. Patients Allergies have been reviewed. Allergies Allergies Coded Allergies Tetanus Vaccines and Toxoid (Unverified Allergy, Unknown, SWELLING, 12/21/17) codeine (Unverified Allergy, Unknown, MAKES HER HYPER, 12/21/17) Past Dcgnglm-Hmhgaq-Ewlmkd Hx Past Med/Social Hx: Reviewed Nursing Past Med/Soc Hx, Reviewed and Corrections made Patient Social History Marrital Status: Employed/Student: retired Alcohol Use: Occasionally Uses Smoking Status: Never a Smoker Recent Foreign Travel: No Contact w/other who traveled: No Immunizations Up To Date Date of Pneumonia Vaccine: Jan 14, 2011 Seasonal Allergies Seasonal Allergies: Yes Past Medical History Surgeries: Bladder Surgery, Gallbladder Respiratory: Asthma, Pneumonia Cardiac: Hypertension Reproductive: No Gastrointestinal: Polyps Endocrine: Hypothyroidsim HEENT: Cataract Family History Cancer, CAD Under 55 Years Old, CAD Over 55 Years Old Review of Systems Constitutional: see HPI, malaise, weakness EENTM: no symptoms reported Respiratory: no symptoms reported Cardiovascular: no symptoms reported Gastrointestinal: abdominal pain, loss of appetite, nausea Genitourinary: no symptoms reported Musculoskeletal: no symptoms reported Skin: no symptoms reported Psychiatric/Neurological: No Symptoms Reported All Other Systems Reviewed Negative Unless Noted: Yes Physical Exam Physical Exam Vital Signs Vital Signs - First Documented 07/26/21 16:40 Temp 37.2 Pulse 74 Resp 95 B/P (MAP) 133/84 (100) Pulse Ox 20 O2 Delivery Room Air Capillary Refill : Height, Weight, BMI Height: 5'2.00" Weight: 142lbs. 0.0oz. 64.012506nl; 26.20 BMI Method: General Appearance: No Apparent Distress, WD/WN Eyes: Bilateral Eye Normal Inspection, Bilateral Eye PERRL HEENT: PERRL/EOMI, Normal ENT Inspection, Pharynx Normal Neck: Full Range of Motion, Normal Inspection, Non Tender, Supple, Carotid Bruit Respiratory: Chest Non Tender, Lungs Clear, Normal Breath Sounds, No Accessory Muscle Use, No Respiratory Distress Cardiovascular: Regular Rate, Rhythm, No Edema, No Gallop, No JVD, No Murmur, Normal Peripheral Pulses Gastrointestinal: Normal Bowel Sounds, No Organomegaly, No Pulsatile Mass, Soft, Abnormal Bowel Sounds, Distended, Tenderness Back: Normal Inspection, No CVA Tenderness, No Vertebral Tenderness Extremity: Normal Capillary Refill, Normal Inspection, Normal Range of Motion, Non Tender, No Calf Tenderness, No Pedal Edema Neurologic/Psychiatric: Alert, Oriented x3, No Motor/Sensory Deficits, Normal Mood/Affect Skin: Normal Color, Warm/Dry Lymphatic: No Adenopathy Results Results/Procedures Labs Laboratory Tests 07/26/21 18:20 07/27/21 05:30 Patient resulted labs reviewed. Assessment/Plan Admission Diagnosis Assessment: Abdominal pain Elevated liver enzymes History of cholecystectomy Colitis? Elevated blood pressure Asthma Hypothyroidism Plan: CT scan Monitor closely Pain control Dr. Fletcher consult Admission Status: Inpatient Order (span 2 midnights) Reason for Inpatient Admission: abd pain with colitis and elevated LFT Diagnosis/Problems Diagnosis/Problems (1) Generalized abdominal pain Status: Acute (2) Liver enzyme elevation (3) Constipation Status: Acute Qualifiers: Qualified Codes: K59.00 - Constipation, unspecified Clinical Quality Measures DVT/VTE Risk/Contraindication: Contraindications-Pharm: Other *list below* Other: possible OR BERNADETTE DAVILA DO Jul 27, 2021 06:32
[2021-07-27 07:47] VITALS: BP 142/68
[2021-07-27] MEDS: PANTOPRAZOLE 40 MG (PROTONIX) VIAL IV SCH (08:28)
[2021-07-27] MEDS ORDERED: CATHETER FLUSH 10 ML SYR IV PRN (08:45)
[2021-07-27] MEDS ORDERED: IOHEXOL 350 MG/ML 100 ML (OMNIPAQUE 350) VIAL IV ONE (08:45)
[2021-07-27] MEDS ORDERED: HOLD METFORMIN - RECEIVED CONTRAST 20 ML VIAL IV SCH (08:45)
[2021-07-27] MEDS ORDERED: NS 100 ML (IVPB) BAG IV ONE (08:45)
--- NOTE | 2021-07-27 09:23 | Diagnostic Imaging Report ---
PROCEDURE: CT abdomen and pelvis with contrast. TECHNIQUE: Multiple contiguous axial images were obtained through the abdomen and pelvis after administration of intravenous contrast. Auto Exposure Controls were utilized during the CT exam to meet ALARA standards for radiation dose reduction. All CT scans use one or more of the following dose optimizing techniques: automated exposure control, MA and/or KvP adjustment based on patient size and exam type or iterative reconstruction. INDICATION: Abdominal pain COMPARISON: 06/11/2020 There has been development of mild basilar atelectasis and/or pneumonitis. Gallbladder surgically absent with mild prominence of intra and extrahepatic bile ducts. Pancreatic duct is also prominent, however, there is no evidence of pancreatic mass or inflammation. Spleen has a normal appearance. There is no evidence of adrenal gland abnormality. Left kidney is stable and unremarkable. There is a persistent exophytic simple appearing cyst along the anterior margin of the right kidney measuring approximately 4.3 x 5.0 cm. Additional inferior pole right renal cyst is also noted with smaller right upper pole cyst in the right kidney. There is mild aortoiliac atherosclerotic calcification. Moderate amount of stool is again seen within the distal colon most pronounced at the sigmoid segment. May be minimal edema or inflammation surrounding the sigmoid colon. Unopacified urinary bladder is unremarkable in appearance. IMPRESSION: Similar to the previous study findings suggest constipation with heavy stool burden at the sigmoid colon. There may be slight surrounding inflammation throughout the sigmoid colon indicating mild colitis. Otherwise, no acute abnormality or significant change is detected. Dictated by: Dictated on workstation # [id number]
[2021-07-27] MEDS ORDERED: ONDA4TAB11 PO (11:00)
[2021-07-27] MEDS ORDERED: MTP25TSR PO (11:00)
[2021-07-27] MEDS ORDERED: ASCO250T55 PO (11:00)
[2021-07-27] MEDS ORDERED: MV-M1TAB38 PO (11:01)
[2021-07-27 11:21] VITALS: BP 137/65
--- NOTE | 2021-07-27 11:24 | Consultation - Surgery ---
History of Present Illness History of Present Illness Patient Consulted On(korey/time) 07/27/21 08:18 Date Seen by Provider: Jul 27, 2021 Time Seen by Provider: 08:18 History of Present Illness Consult requested by Dr. Davila for abdominal pain. Patient is a 75 year old female who has been having abdominal discomforts for about 2 weeks. Aching pain in the lower abdomen. Moves across the lower abdomen. Patient states pain has progressively gotten worse. 12/05 pain. Was feeling like having significant constipation and tried laxatives the other day with minimal bowel movement. In the beginning did have some episodes of diarrhea. Was given antibiotics which seemed to help a little. Patient yesterday labs okay and abdominal x rays with no acute findings. This morning liver enzymes increased. Allergies and Home Medications Allergies Coded Allergies: Tetanus Vaccines and Toxoid (Unverified Allergy, Unknown, SWELLING, 12/21/17) codeine (Unverified Allergy, Unknown, MAKES HER HYPER, 12/21/17) Patient Home Medication List Home Medication List Reviewed: Yes Ascorbic Acid/Ascorbate Sodium (Vitamin C 250 mg Tablet Chew) 250 Mg Tab.chew, 250 MG PO DAILY, (Reported) Entered as Reported by: JOSEPH RIBEIRO on 07/27/21 1100 Last Action: Reviewed Calcium Carbonate (Tums Smoothies) 300 Mg Tab.chew, 300-600 MG PO UD PRN for INDIGESTION, (Reported) Entered as Reported by: NATALY LACEY on 12/16/20 114 Last Action: Reviewed Carboxymethylcellulose Sodium (Refresh Tears) 15 Ml Drops, 1-2 DROPS OU QID PRN for DRY EYES, (Reported) Entered as Reported by: NATALY LACEY on 12/16/20 114 Last Action: Reviewed Cholecalciferol (Vitamin D3) (Vitamin D3) 25 Mcg Capsule, 25 MCG PO DAILY, (Reported) Entered as Reported by: NATALY LACEY on 12/16/20 114 Last Action: Reviewed Levocetirizine Dihydrochloride (Levocetirizine Dihydrochloride) 5 Mg Tablet, 5 MG PO HS, (Reported) Entered as Reported by: MALI SALVADOR on 01/26/20 1434 Last Action: Reviewed Levothyroxine Sodium (Levothyroxine Sodium) 125 Mcg Tablet, 125 MCG PO DAILY, (Reported) Entered as Reported by: NATALY LACEY on 12/16/20 1147 Last Action: Reviewed Metoprolol Succinate (Metoprolol Succinate) 25 Mg Tab.er.24h, 25 MG PO HS, (Reported) Entered as Reported by: JOSEPH RIBEIRO on 07/27/21 1100 Last Action: Reviewed Montelukast Sodium (Montelukast Sodium) 10 Mg Tablet, 10 MG PO HS, (Reported) Entered as Reported by: MALI SALVADOR on 01/26/20 1434 Last Action: Reviewed Multivitamin with Minerals (Multiple Vitamin) 1 Each Tablet, 1 EACH PO DAILY, (Reported) Entered as Reported by: NED LIN on 12/15/20 164 Last Action: Reviewed Mv-Mn/FA/Vit K/Lycop/Lut/Zeaxa (Ocuvite Eye + Multi Tablet) 200 Mcg-15 Mcg-150 Mcg-5 Mg-1 Mg Tablet, 1 EACH PO DAILY, (Reported) Entered as Reported by: JOSEPH RIBEIRO on 07/27/21 1101 Last Action: Reviewed Ondansetron (Ondansetron Odt) 4 Mg Tab.rapdis, 4 MG PO Q6H PRN for NAUSEA/VOMITING, (Reported) Entered as Reported by: JOSEPH RIBEIRO on 07/27/21 1100 Last Action: Reviewed Zinc Gluconate (Zinc) 50 Mg Tablet, 50 MG PO DAILY, (Reported) Entered as Reported by: NED LIN on 12/15/20 164 Last Action: Reviewed Past Etfzrft-Dcwdxw-Uonnny Hx Patient Social History Smoking Status: Never a Smoker Alcohol Use?: Yes Have you traveled recently?: No Immunizations Up To Date Date of Pneumonia Vaccine: Jan 14, 2011 Seasonal Allergies Seasonal Allergies: Yes Surgeries History of Surgeries: Yes Surgeries: Bladder Surgery, Gallbladder Respiratory History of Respiratory Disorde: Yes Respiratory Disorders: Asthma Cardiovascular History of Cardiac Disorders: No Cardiac Disorders: Hypertension Neurological History of Neurological Disord: No Reproductive System Hx Reproductive Disorders: No Genitourinary History of Genitourinary Disor: Yes (Bladder sling) Gastrointestinal History of Gastrointestinal Di: Yes Gastrointestinal Disorders: Polyps Musculoskeletal History of Musculoskeletal Dis: No Endocrine History of Endocrine Disorders: Yes Endocrine Disorders: Hypothyroidsim HEENT History of HEENT Disorders: No HEENT Disorders: Cataract Cancer History of Cancer: No Psychosocial History of Psychiatric Problem: No Integumentary History of Skin or Integumenta: No Reviewed Nursing Assessment Reviewed/Agree w Nursing PMH: Yes Family Medical History Significant Family History: No Pertinent Family Hx, Cancer, CAD Under 55 Years Old, CAD Over 55 Years Old Review of Systems-General Constitutional: No chills, No weakness EENTM: No blurred vision, No double vision Respiratory: No dyspnea on exertion, No short of breath Gastrointestinal: abdominal pain (lower abdomen) Musculoskeletal: No back pain, No joint pain Skin: No change in color, No change in hair/nails Psychiatric/Neurological: Denies Anxiety, Denies Depressed, Denies Emotional Problems All Other Systems Reviewed Negative Unless Noted: Yes (Negative excepted noted.) Physical Exam-General Problems Physical Exam Vital Signs Vital Signs - First Documented 07/26/21 16:40 Temp 37.2 Pulse 74 Resp 95 B/P (MAP) 133/84 (100) Pulse Ox 20 O2 Delivery Room Air Capillary Refill : General Appearance: WD/WN, no apparent distress HEENT: PERRL/EOMI, normal ENT inspection Neck: non-tender, supple Respiratory: chest non-tender, no respiratory distress, no accessory muscle use Cardiovascular: regular rate, rhythm, no JVD Gastrointestinal: soft, tenderness (lower abdomen) Rectal: deferred Extremities: non-tender, normal inspection Neurologic/Psychiatric: alert, normal mood/affect, oriented x 3 Skin: normal color, warm/dry Lymphatic: no adenopathy Data Review Labs Laboratory Tests 07/26/21 18:20: White Blood Count 8.5, Red Blood Count 4.87, Hemoglobin 13.3, Hematocrit 42, Mean Corpuscular Volume 86, Mean Corpuscular Hemoglobin 27, Mean Corpuscular Hemoglobin Concent 32, Red Cell Distribution Width 13.2, Platelet Count 259, Mean Platelet Volume 9.8, Immature Granulocyte % (Auto) 1, Neutrophils (%) (Auto) 71, Lymphocytes (%) (Auto) 16, Monocytes (%) (Auto) 9, Eosinophils (%) (Auto) 3, Basophils (%) (Auto) 1, Neutrophils # (Auto) 6.0, Lymphocytes # (Auto) 1.4, Monocytes # (Auto) 0.7, Eosinophils # (Auto) 0.3, Basophils # (Auto) 0.1, Immature Granulocyte # (Auto) 0.1, Erythrocyte Sedimentation Rate 24, Sodium Level 141, Potassium Level 3.6, Chloride Level 104, Carbon Dioxide Level 24, Anion Gap 13, Blood Urea Nitrogen 12, Creatinine 0.78, Estimat Glomerular Filtration Rate 79, BUN/Creatinine Ratio 15, Glucose Level 95, Lactic Acid Level 0.63, Calcium Level 10.0, Corrected Calcium 10.1, Total Bilirubin 0.6, Aspartate Amino Transf (AST/SGOT) 15, Alanine Aminotransferase (ALT/SGPT) 17, Alkaline Phosphatase 67, C-Reactive Protein High Sensitivity 3.43H, Total Protein 6.7, Albumin 3.9, Amylase Level 79, Lipase 34 07/26/21 18:30: Urine Color YELLOW, Urine Clarity CLEAR, Urine pH 5.5, Urine Specific [place] <=1.005, Urine Protein NEGATIVE, Urine Glucose (UA) NEGATIVE, Urine Ketones TRACEH, Urine Nitrite NEGATIVE, Urine Bilirubin NEGATIVE, Urine Urobilinogen 0.2, Urine Leukocyte Esterase TRACEH, Urine RBC (Auto) 1+H, Urine RBC 0-2, Urine WBC 0-2, Urine Squamous Epithelial Cells 0-2, Urine Renal Epithelial Cells NONE, Urine Crystals NONE, Urine Bacteria NEGATIVE, Urine Casts NONE, Urine Mucus NEGATIVE, Urine Culture Indicated NO 07/27/21 05:20: 07/27/21 05:30: White Blood Count 5.0, Red Blood Count 4.25, Hemoglobin 12.0, Hematocrit 37, Mean Corpuscular Volume 87, Mean Corpuscular Hemoglobin 28, Mean Corpuscular Hemoglobin Concent 32, Red Cell Distribution Width 13.1, Platelet Count 192, Mean Platelet Volume 9.5, Immature Granulocyte % (Auto) 1, Neutrophils (%) (Auto) 62, Lymphocytes (%) (Auto) 24, Monocytes (%) (Auto) 9, Eosinophils (%) (Auto) 4, Basophils (%) (Auto) 1, Neutrophils # (Auto) 3.1, Lymphocytes # (Auto) 1.2, Monocytes # (Auto) 0.5, Eosinophils # (Auto) 0.2, Basophils # (Auto) 0.1, Immature Granulocyte # (Auto) 0.0, Sodium Level 141, Potassium Level 4.0, Chloride Level 109H, Carbon Dioxide Level 22, Anion Gap 10, Blood Urea Nitrogen 11, Creatinine 0.69, Estimat Glomerular Filtration Rate 90, BUN/Creatinine Ratio 16, Glucose Level 98, Calcium Level 8.3L, Corrected Calcium 9.0, Total Bilirubin 1.1H, Aspartate Amino Transf (AST/SGOT) 640H, Alanine Aminotransferase (ALT/SGPT) 430H, Alkaline Phosphatase 112, Total Protein 5.4L, Albumin 3.1L Assessment/Plan Assessment/Plan Assessment/Plan lower abdominal pain elevated liver enzymes. Still with significant pain will get ct abdomen and pelvis to further evaluate NPO IV hyrdration await ct Clinical Quality Measures DVT/VTE Risk/Contraindication: Contraindications-Pharm: Other *list below* Other: possible OR JAILENE BRYANT DO Jul 27, 2021 11:24
[2021-07-27] MEDS ORDERED: MAGNESIUM CITRATE 300 ML BTL PO ONE ×2 (11:30→18:30)
[2021-07-27] MEDS: ENOXAPARIN 40 MG/0.4 ML (LOVENOX) SYR SC SCH (11:31)
--- NOTE | 2021-07-27 14:21 | Diagnostic Imaging Report ---
INDICATION: Elevated liver function tests. PROCEDURE: Ultrasound abdomen complete. TECHNIQUE: Multiple real-time grayscale images were obtained of the abdomen in various projections. FINDINGS: Liver is normal in size at 15 cm. The portal vein is patent and shows normal direction of flow. No discrete liver mass is detected. Gallbladder is surgically absent. Extrahepatic bile duct is slightly prominent at 8 mm, likely owing to post cholecystectomy. The pancreas was obscured by bowel gas. Spleen is normal in size at 10.9 cm. Aorta is obscured. IVC is patent. Right kidney measures 10.8 cm in length and left kidney measures 9.9 cm in length. The right kidney does contain multiple cysts, largest approximately 4.7 cm in diameter. No calculi or hydronephrosis is seen. There is no ascites. IMPRESSION: 1. Status post cholecystectomy. 2. Right renal cyst. The study is otherwise unremarkable. Dictated by: Dictated on workstation # [id number]
[2021-07-27 15:50] VITALS: BP 131/75
[2021-07-27] MEDS ORDERED: ACETAMINOPHEN 325 MG TABLET ONE (18:45)
[2021-07-27] MEDS ORDERED: ACETAMINOPHEN 325 MG TABLET PO PRN (19:00)
[2021-07-27 19:08] VITALS: BP 145/84
[2021-07-27] MEDS ORDERED: HYDROcodone/APAP 5 MG/325 MG (LORTAB) TAB PO PRN (19:45)
[2021-07-27] MEDS ORDERED: BISACODYL 10 MG SUPP (DULCOLAX) PR PRN (19:45)
[2021-07-27] MEDS ORDERED: MELATONIN 3 MG TABLET PO PRN (19:45)
[2021-07-27] MEDS ORDERED: CALCIUM CARBONATE 500 MG (TUMS) TAB.CHEW PO PRN (19:45)
[2021-07-27] MEDS ORDERED: ALPRAZolam 0.25 MG (XANAX) TAB PO PRN (19:45)
[2021-07-27] MEDS ORDERED: DOCUSATE SODIUM 100 MG (COLACE) CAP PO PRN (19:45)
[2021-07-27] MEDS ORDERED: diphenhydrAMINE 25 MG TAB (BENADRYL) PO PRN (19:45)
[2021-07-27] MEDS ORDERED: LACTULOSE SYRUP 10GM/15ML (ENULOSE) 30ML UDC PO PRN (19:45)
[2021-07-27] MEDS ORDERED: LOPERAMIDE 2 MG (IMODIUM) TABLET PO PRN (19:45)
[2021-07-27] MEDS: MONTELUKAST 10 MG (SINGULAIR) TAB PO SCH (20:16)
[2021-07-27] MEDS: LORATADINE (CLARITIN) 10 MG TAB PO SCH (20:16)
[2021-07-27 20:54] LABS: HEPATITIS C ANTIBODY C Non-Reactive (Non-Reactive)
[2021-07-27] MEDS: SENNA W/DOCUSATE (SENOKOT S) TABLET PO SCH (22:30)
[2021-07-27] MEDS: polyethylene glycoL POWDER 17 GM (MIRALAX) PACK PO SCH (22:30)
[2021-07-27 23:30] VITALS: BP 135/71
[2021-07-28] MEDS: NS IV 1000 ML 1,000 ML IV SCH ×2 (03:48→10:24)
[2021-07-28] MEDS: KETOROLAC 15 MG/ML VIAL IV SCH (05:37)
[2021-07-28] MEDS: LEVOTHYROXINE 125 MCG (LEVOTHROID) TABLET PO SCH (05:37)
[2021-07-28 06:02] LABS: BASOPHILS # (AUTO) 0.1 10^3/uL (0.0-0.1); BASOPHILS % (AUTO) 1 % (0-10); EOSINOPHILS # (AUTO) 0.2 10^3/uL (0.0-0.3); EOSINOPHILS % (AUTO) 5 % (0-10); HEMATOCRIT 37 % (35-52); HEMOGLOBIN 11.8 g/dL (11.5-16.0); LYMPHOCYTES # (AUTO) 1.1 10^3/uL (1.0-4.0); LYMPHOCYTES % (AUTO) 23 % (12-44); MEAN CORPUSCULAR HEMOGLOBIN 28 pg (25-34); MEAN CORPUSCULAR HGB CONC 32 g/dL (32-36); MEAN CORPUSCULAR VOLUME 86 fL (80-99); MEAN PLATELET VOLUME 9.6 fL (9.0-12.2); MONOCYTES # (AUTO) 0.5 10^3/uL (0.0-1.0); MONOCYTES % (AUTO) 10 % (0-12); NEUTROPHILS # (AUTO) 2.9 10^3/uL (1.8-7.8); NEUTROPHILS % (AUTO) 60 % (42-75); PLATELET COUNT 216 10^3/uL (130-400); WHITE BLOOD COUNT 4.9 10^3/uL (4.3-11.0)
[2021-07-28 06:14] LABS: ALBUMIN 3.2 GM/DL (3.2-4.5)
[2021-07-28 06:15] LABS: POTASSIUM 3.5 MMOL/L (3.6-5.0)
[2021-07-28 06:16] LABS: CALCIUM 8.3 MG/DL (8.5-10.1)
[2021-07-28 06:17] LABS: TOTAL PROTEIN 5.6 GM/DL (6.4-8.2)
[2021-07-28 06:19] LABS: BILIRUBIN,TOTAL 0.5 MG/DL (0.1-1.0)
[2021-07-28 06:21] LABS: CREATININE SERUM 0.64 MG/DL (0.60-1.30)
[2021-07-28 08:09] VITALS: BP 127/73
[2021-07-28] MEDS: PANTOPRAZOLE 40 MG (PROTONIX) VIAL IV SCH (09:31)
[2021-07-28] MEDS: polyethylene glycoL POWDER 17 GM (MIRALAX) PACK PO SCH (09:35)
[2021-07-28] MEDS: SENNA W/DOCUSATE (SENOKOT S) TABLET PO SCH (09:35)
[2021-07-28] MEDS: ENOXAPARIN 40 MG/0.4 ML (LOVENOX) SYR SC SCH (09:35)
--- NOTE | 2021-07-28 11:04 | Discharge Summary ---
Diagnosis/Chief Complaint Date of Admission Jul 27, 2021 at 10:00 Date of Discharge Discharge Date: Jul 28, 2021 Discharge Diagnosis Assessment: Abdominal pain due to colitis from severe constipation Elevated liver enzymes improving at time of discharge History of cholecystectomy Colitis? Elevated blood pressure Asthma Hypothyroidism Plan: CT scan Monitor closely Pain control Dr. Fletcher consult Discharge Summary Discharge Physical Examination Allergies: Coded Allergies: Tetanus Vaccines and Toxoid (Unverified Allergy, Unknown, SWELLING, 12/21/17) codeine (Unverified Allergy, Unknown, MAKES HER HYPER, 12/21/17) Vitals & I&Os Vital Signs Date Time Temp Pulse Resp B/P (MAP) Pulse Ox O2 Delivery O2 Flow Rate FiO2 07/28/21 10:05 95 Room Air 0.00 07/28/21 08:09 36.1 62 20 127/73 (91) General Appearance: Alert, Oriented X3, Cooperative Respiratory: Clear to Auscultation Cardiovascular: Regular Rate Neuro: Normal Gait, Normal Speech, Strength at 5/5 X4 Ext Psych/Mental Status: Mental Status NL Hospital Course Was the Problem List Reviewed?: Yes Pt had an uneventful hospital course after she was admitted for abdominal pain. She was found to have severe cost to pt with colitis and elevated liver enzymes. Dr. Fletcher evaluated her. Abdominal ultrasound was negative. Acute viral hepatitis was negative. Pt did have a complete bowel evacuation. Pt was deemed stable for discharge, with close follow up with me with labs to check for liver enzyme resolution in one week. Labs (last 24 hrs) Laboratory Tests 07/26/21 18:20: White Blood Count 8.5, Red Blood Count 4.87, Hemoglobin 13.3, Hematocrit 42, Mean Corpuscular Volume 86, Mean Corpuscular Hemoglobin 27, Mean Corpuscular Hemoglobin Concent 32, Red Cell Distribution Width 13.2, Platelet Count 259, Mean Platelet Volume 9.8, Immature Granulocyte % (Auto) 1, Neutrophils (%) (Auto) 71, Lymphocytes (%) (Auto) 16, Monocytes (%) (Auto) 9, Eosinophils (%) (Auto) 3, Basophils (%) (Auto) 1, Neutrophils # (Auto) 6.0, Lymphocytes # (Auto) 1.4, Monocytes # (Auto) 0.7, Eosinophils # (Auto) 0.3, Basophils # (Auto) 0.1, Immature Granulocyte # (Auto) 0.1, Erythrocyte Sedimentation Rate 24, Sodium Level 141, Potassium Level 3.6, Chloride Level 104, Carbon Dioxide Level 24, Anion Gap 13, Blood Urea Nitrogen 12, Creatinine 0.78, Estimat Glomerular Filtration Rate 79, BUN/Creatinine Ratio 15, Glucose Level 95, Lactic Acid Level 0.63, Calcium Level 10.0, Corrected Calcium 10.1, Total Bilirubin 0.6, Aspartate Amino Transf (AST/SGOT) 15, Alanine Aminotransferase (ALT/SGPT) 17, Alkaline Phosphatase 67, C-Reactive Protein High Sensitivity 3.43H, Total Protein 6.7, Albumin 3.9, Amylase Level 79, Lipase 34 07/26/21 18:30: Urine Color YELLOW, Urine Clarity CLEAR, Urine pH 5.5, Urine Specific [place] <=1.005, Urine Protein NEGATIVE, Urine Glucose (UA) NEGATIVE, Urine Ketones TRACEH, Urine Nitrite NEGATIVE, Urine Bilirubin NEGATIVE, Urine Urobilinogen 0.2, Urine Leukocyte Esterase TRACEH, Urine RBC (Auto) 1+H, Urine RBC 0-2, Urine WBC 0-2, Urine Squamous Epithelial Cells 0-2, Urine Renal Epithelial Cells NONE, Urine Crystals NONE, Urine Bacteria NEGATIVE, Urine Casts NONE, Urine Mucus NEGATIVE, Urine Culture Indicated NO 07/27/21 05:20: Hepatitis A IgM Antibody Non-Reactive, Hepatitis B Surface Antigen Non-Reactive, Hepatitis B Core IgM Antibody Non-Reactive, Hepatitis C Antibody Non-Reactive 07/27/21 05:30: White Blood Count 5.0, Red Blood Count 4.25, Hemoglobin 12.0, Hematocrit 37, Linda n Corpuscular Volume 87, Mean Corpuscular Hemoglobin 28, Mean Corpuscular Hemoglobin Concent 32, Red Cell Distribution Width 13.1, Platelet Count 192, Mean Platelet Volume 9.5, Immature Granulocyte % (Auto) 1, Neutrophils (%) (Auto) 62, Lymphocytes (%) (Auto) 24, Monocytes (%) (Auto) 9, Eosinophils (%) (Auto) 4, Basophils (%) (Auto) 1, Neutrophils # (Auto) 3.1, Lymphocytes # (Auto) 1.2, Monocytes # (Auto) 0.5, Eosinophils # (Auto) 0.2, Basophils # (Auto) 0.1, Immature Granulocyte # (Auto) 0.0, Sodium Level 141, Potassium Level 4.0, Chloride Level 109H, Carbon Dioxide Level 22, Anion Gap 10, Blood Urea Nitrogen 11, Creatinine 0.69, Estimat Glomerular Filtration Rate 90, BUN/Creatinine Ratio 16, Glucose Level 98, Calcium Level 8.3L, Corrected Calcium 9.0, Total Bilirubin 1.1H, Aspartate Amino Transf (AST/SGOT) 640H, Alanine Aminotransferase (ALT/SGPT) 430H, Alkaline Phosphatase 112, Total Protein 5.4L, Albumin 3.1L 07/28/21 05:33: White Blood Count 4.9, Red Blood Count 4.24, Hemoglobin 11.8, Hematocrit 37, Mean Corpuscular Volume 86, Mean Corpuscular Hemoglobin 28, Mean Corpuscular Hemoglobin Concent 32, Red Cell Distribution Width 13.2, Platelet Count 216, Mean Platelet Volume 9.6, Immature Granulocyte % (Auto) 0, Neutrophils (%) (Auto) 60, Lymphocytes (%) (Auto) 23, Monocytes (%) (Auto) 10, Eosinophils (%) (Auto) 5, Basophils (%) (Auto) 1, Neutrophils # (Auto) 2.9, Lymphocytes # (Auto) 1.1, Monocytes # (Auto) 0.5, Eosinophils # (Auto) 0.2, Basophils # (Auto) 0.1, Immature Granulocyte # (Auto) 0.0, Sodium Level 144, Potassium Level 3.5L, Chloride Level 113H, Carbon Dioxide Level 20L, Anion Gap 11, Blood Urea Nitrogen 6L, Creatinine 0.64, Estimat Glomerular Filtration Rate 92, BUN/Creatinine Ratio 9, Glucose Level 98, Calcium Level 8.3L, Corrected Calcium 8.9, Total Bilirubin 0.5, Aspartate Amino Transf (AST/SGOT) 166H, Alanine Aminotransferase (ALT/SGPT) 294H, Alkaline Phosphatase 125, Total Protein 5.6L, Albumin 3.2 Pending Labs Laboratory Tests 07/26/21 18:20: White Blood Count 8.5, Red Blood Count 4.87, Hemoglobin 13.3, Hematocrit 42, Me an Corpuscular Volume 86, Mean Corpuscular Hemoglobin 27, Mean Corpuscular Hemoglobin Concent 32, Red Cell Distribution Width 13.2, Platelet Count 259, Mean Platelet Volume 9.8, Immature Granulocyte % (Auto) 1, Neutrophils (%) (Auto) 71, Lymphocytes (%) (Auto) 16, Monocytes (%) (Auto) 9, Eosinophils (%) (Auto) 3, Basophils (%) (Auto) 1, Neutrophils # (Auto) 6.0, Lymphocytes # (Auto) 1.4, Monocytes # (Auto) 0.7, Eosinophils # (Auto) 0.3, Basophils # (Auto) 0.1, Immature Granulocyte # (Auto) 0.1, Erythrocyte Sedimentation Rate 24, Sodium Level 141, Potassium Level 3.6, Chloride Level 104, Carbon Dioxide Level 24, Anion Gap 13, Blood Urea Nitrogen 12, Creatinine 0.78, Estimat Glomerular Filtration Rate 79, BUN/Creatinine Ratio 15, Glucose Level 95, Lactic Acid Level 0.63, Calcium Level 10.0, Corrected Calcium 10.1, Total Bilirubin 0.6, Aspartate Amino Transf (AST/SGOT) 15, Alanine Aminotransferase (ALT/SGPT) 17, Alkaline Phosphatase 67, C-Reactive Protein High Sensitivity 3.43, Total Protein 6.7, Albumin 3.9, Amylase Level 79, Lipase 34 07/26/21 18:30: Urine Color YELLOW, Urine Clarity CLEAR, Urine pH 5.5, Urine Specific [place] <=1.005, Urine Protein NEGATIVE, Urine Glucose (UA) NEGATIVE, Urine Ketones TRACE, Urine Nitrite NEGATIVE, Urine Bilirubin NEGATIVE, Urine Urobilinogen 0.2, Urine Leukocyte Esterase TRACE, Urine RBC (Auto) 1+, Urine RBC 0-2, Urine WBC 0- 2, Urine Squamous Epithelial Cells 0-2, Urine Renal Epithelial Cells NONE, Urine Crystals NONE, Urine Bacteria NEGATIVE, Urine Casts NONE, Urine Mucus NEGATIVE, Urine Culture Indicated NO 07/27/21 05:20: Hepatitis A IgM Antibody Non-Reactive, Hepatitis B Surface Antigen Non-Reactive, Hepatitis B Core IgM Antibody Non-Reactive, Hepatitis C Antibody Non-Reactive 07/27/21 05:30: White Blood Count 5.0, Red Blood Count 4.25, Hemoglobin 12.0, Hematocrit 37, Mean Corpuscular Volume 87, Mean Corpuscular Hemoglobin 28, Mean Corpuscular Hemoglobin Concent 32, Red Cell Distribution Width 13.1, Platelet Count 192, Mean Platelet Volume 9.5, Immature Granulocyte % (Auto) 1, Neutrophils (%) (Auto) 62, Lymphocytes (%) (Auto) 24, Monocytes (%) (Auto) 9, Eosinophils (%) (Auto) 4, Basophils (%) (Auto) 1, Neutrophils # (Auto) 3.1, Lymphocytes # (Auto) 1.2, Monocytes # (Auto) 0.5, Eosinophils # (Auto) 0.2, Basophils # (Auto) 0.1, Immature Granulocyte # (Auto) 0.0, Sodium Level 141, Potassium Level 4.0, Chloride Level 109, Carbon Dioxide Level 22, Anion Gap 10, Blood Urea Nitrogen 11, Creatinine 0.69, Estimat Glomerular Filtration Rate 90, BUN/Creatinine Ratio 16, Glucose Level 98, Calcium Level 8.3, Corrected Calcium 9.0, Total Bilirubin 1.1, Aspartate Amino Transf (AST/SGOT) 640, Alanine Aminotransferase (ALT/SGPT) 430, Alkaline Phosphatase 112, Total Protein 5.4, Albumin 3.1 07/28/21 05:33: White Blood Count 4.9, Red Blood Count 4.24, Hemoglobin 11.8, Hematocrit 37, Mean Corpuscular Volume 86, Mean Corpuscular Hemoglobin 28, Mean Corpuscular Hemoglobin Concent 32, Red Cell Distribution Width 13.2, Platelet Count 216, Mean Platelet Volume 9.6, Immature Granulocyte % (Auto) 0, Neutrophils (%) (Auto) 60, Lymphocytes (%) (Auto) 23, Monocytes (%) (Auto) 10, Eosinophils (%) (Auto) 5, Basophils (%) (Auto) 1, Neutrophils # (Auto) 2.9, Lymphocytes # (Auto) 1.1, Monocytes # (Auto) 0.5, Eosinophils # (Auto) 0.2, Basophils # (Auto) 0.1, Immature Granulocyte # (Auto) 0.0, Sodium Level 144, Potassium Level 3.5, Chloride Level 113, Carbon Dioxide Level 20, Anion Gap 11, Blood Urea Nitrogen 6, Creatinine 0.64, Estimat Glomerular Filtration Rate 92, BUN/Creatinine Ratio 9, Glucose Level 98, Calcium Level 8.3, Corrected Calcium 8.9, Total Bilirubin 0.5, Aspartate Amino Transf (AST/SGOT) 166, Alanine Aminotransferase (ALT/SGPT) 294, Alkaline Phosphatase 125, Total Protein 5.6, Albumin 3.2 Discharge Home Medications: Active Scripts Active Reported Ocuvite Eye + Multi Tablet (Mv-Mn/FA/Vit K/Lycop/Lut/Zeaxa) 200 Mcg-15 Mcg-150 Mcg-5 Mg-1 Mg Tablet 1 Each PO DAILY Vitamin C 250 mg Tablet Chew (Ascorbic Acid/Ascorbate Sodium) 250 Mg Tab.chew 250 Mg PO DAILY Metoprolol Succinate 25 Mg Tab.er.24h 25 Mg PO HS Ondansetron Odt (Ondansetron) 4 Mg Tab.rapdis 4 Mg PO Q6H PRN Tums Smoothies (Calcium Carbonate) 300 Mg Tab.chew 300-600 Mg PO UD PRN Refresh Tears (Carboxymethylcellulose Sodium) 15 Ml Drops 1-2 Drops OU QID PRN Vitamin D3 (Cholecalciferol (Vitamin D3)) 25 Mcg Capsule 25 Mcg PO DAILY Levothyroxine Sodium 125 Mcg Tablet 125 Mcg PO DAILY Zinc (Zinc Gluconate) 50 Mg Tablet 50 Mg PO DAILY Multiple Vitamin (Multivitamin with Minerals) 1 Each Tablet 1 Each PO DAILY Levocetirizine Dihydrochloride 5 Mg Tablet 5 Mg PO HS Montelukast Sodium 10 Mg Tablet 10 Mg PO HS Instructions to patient/family Please see electronic discharge instructions given to patient. Diagnosis/Problems Diagnosis/Problems (1) Generalized abdominal pain Status: Acute (2) Liver enzyme elevation (3) Constipation Status: Acute Qualifiers: Qualified Codes: K59.00 - Constipation, unspecified Clinical Quality Measures DVT/VTE Risk/Contraindication: Contraindications-Pharm: Other *list below* Other: possible OR TOMMIE FARIAS DO Jul 28, 2021 11:04
[2021-07-28] MEDS ORDERED: KCL 10 MEQ TAB (MICRO K) PO NR (11:05)
== END 2021-07-28 11:46 | disposition home or self-care (01) | DRG 392 ==
LOC: 4TH 16:30 → OBSVTOIN 07-27 10:00
PROVIDERS: ADMIT Internal Medicine; ATTEND Internal Medicine
DX: K52.9 Noninfective gastroenteritis and colitis, unspecified (principal); K59.00 Constipation, unspecified; Z90.49 Acquired absence of other specified parts of digestive tract; J45.909 Unspecified asthma, uncomplicated; E03.9 Hypothyroidism, unspecified; I10 Essential (primary) hypertension
CPT/HCPCS: 36415; 74022; 74177; 76700; 80053; 80074; 81000; 82150; 83605; 83690; 85025; 85652; 86141; 94760; G0378

== ENCOUNTER → 2022-10-12 | Outpatient (CLI) | payer MEDICARE, OTHER ==
[~2022-10-12] MED LIST changes: +ASCO250T55 PO; +MTP25TSR PO; +MV-M1TAB38 PO; +ONDA4TAB11 PO
--- NOTE | 2022-10-12 10:35 | Diagnostic Imaging Report ---
PROCEDURE: CT head without contrast. TECHNIQUE: Multiple contiguous axial images were obtained through the brain without the use of intravenous contrast. Auto Exposure Controls were utilized during the CT exam to meet ALARA standards for radiation dose reduction. INDICATION: Sinusitis. COMPARISON: None. FINDINGS: The keller-white matter differentiation is preserved. No acute intracranial hemorrhage. No midline shift or mass effect. No intracranial mass or fluid collection. The subarachnoid space are maintained. The sella is normal. Scattered calcifications of the intracranial vasculature. The paranasal sinuses and mastoids are clear. The globes and orbits are normal. IMPRESSION: No acute intracranial hemorrhage. No large vascular territory jiménez-white loss. No intracranial mass, midline shift, or hydrocephalus. Dictated by: Dictated on workstation # [id number]
--- NOTE | 2022-10-12 14:29 | Diagnostic Imaging Report ---
PROCEDURE: CT sinuses without contrast TECHNIQUE: Multiple contiguous axial images were obtained through the sinuses without the use of intravenous contrast. Coronal and sagittal reformations were then performed. Auto Exposure Controls were utilized during the CT exam to meet ALARA standards for radiation dose reduction. INDICATION: 77-year-old female with chronic frontal sinus headaches Comparisons: CT head 10/12/2022 FINDINGS: Axial images in sagittal and coronal reconstructions of the paranasal sinuses show well pneumatized maxillary sinuses. The ostiomeatal complexes are patent. Nasal septum is midline. The frontal sinuses, ethmoid air cells and sphenoid sinuses are also well pneumatized. Orbits including both globes, retro-orbital extraconal, coronal and intraconal spaces are normal. Zygomatic arches and pterygoid plates are unremarkable. Mastoid air cells appear well pneumatized. There is calcific atherosclerosis seen within the carotid siphons. IMPRESSION: 1. Well pneumatized paranasal sinuses and mastoid air cells. 2. The nasal septum is midline and the ostiomeatal complexes are patent. 3. There is calcific atherosclerosis in the carotid siphons. Dictated by: Dictated on workstation # [id number]
== END ==
LOC: RAD 09:40
PROVIDERS: ATTEND Internal Medicine
DX: J32.1 Chronic frontal sinusitis (principal); I65.29 Occlusion and stenosis of unspecified carotid artery; R51.9 Headache, unspecified
CPT/HCPCS: 70450; 70486